=== PATIENT | female | born 1965 | race Caucasian/White ===

== ENCOUNTER → 2023-07-31 | Outpatient (CLI) | payer MEDICARE, MEDICAID, SELFPAY ==
--- NOTE | 2023-07-31 14:30 | NEURO ---
NCS and/or EMG Patient Report Ordering Doctor: Nemo Dawn DATE OF SERVICE: 07/31/23 Clinical Summary: This is a 58 year old female presenting with numbness in both hands (thumb and index finger). This EMG/NCS was performed to evaluate for bilateral carpal tunnel syndrome. Nerve Conduction Studies Summary: Nerve conduction studies were within normal ranges. Needle Examination Summary: Needle examination of select muscles of the bilateral upper extremities was normal. Impression: There is no electrodiagnostic evidence of a right/left carpal tunnel syndrome. Multi Select Codes Neurology Neurology Interp Codes: 68286-33 Musc test done w/n test comp (interp) (2) and 31650-10 Nrv cndj test 13/> studies (interp)
--- OUTSIDE RECORDS SUMMARY | 2023-07-31 21:51 | XMS RPT_ITS | CCD ---
Author Name Unknown Address [address] [facility] [address] [place] [address] Organization [facility] Care Team Providers Care Car Changer Name Role Phone Ruth Samaniego Unavailable Unavailable Ruth Samaniego Unavailable Unavailable Luan Pickett Unavailable Unavailable Vanessa Rojas Unavailable Unavailable Vanessa Rojas Unavailable Unavailable Luan Pickett Unavailable Unavailable Murali Caldwell Unavailable Unavailable Murali Caldwell Unavailable Unavailable Luan Pickett Unavailable Unavailable Luan Pickett Unavailable Dr. Murali Caldwell Attending Unavailable Piyush, Dr. Luan De La [facility] Primary [facility] Unavaila hamzah Pickett, Dr. Luan De La Fuente Attending Unavaila hamzah Pickett, Dr. Luan De La Fuente Primary [facility] Unavaila Lan Lewis DO Primary Care Provider [phone] LAN DAWN Attending Unavailable LAN DAWN Primary Care Unavailable WENDY RODRIGUEZ Attending Unavailable LAN DAWN Referring Unavailable LAN DAWN Primary Care Unavailable WENDY RODRIGUEZ Attending Unavailable LAN DAWN Primary Care Unavailable WENDY RODRIGUEZ Referring Unavailable LAN DAWN Primary Care Unavailable Allergies Allergy Classification Reported Allergen(s) Allergy Type Date of Onset Reaction(s) Facility (1 source) Bee/Wasp/Ant venom; Translations: [Bee Stings] Propensity to adverse reactions (disorder) AOF [facility] Repository (3 sources) Egg; Translations: [Eggs] Propensity to adverse reactions to drug (disorder) AOF, Rash [facility] Repository (3 sources) [place]; Translations: [Peaches] Propensity to adverse reactions to drug (disorder) AOF, Rash [facility] Repository (3 sources) Spiders; Translations: [Spiders] Propensity to adverse reactions (disorder) AOF [facility] Repository (1 source) No Known Allergies; Translations: [No Known Allergies] Propensity to adverse reactions to drug (disorder) [facility] Repository (2 sources) apis mellifera venom Allergy to substance (finding) [facility] Work Phone: (7 sources) egg extract; Translations: [EGG] Drug Allergy 6 [facility] Work Phone: (7 sources) Fruit; Translations: [FRUIT EXTRACTS] Propensity to adverse reactions 6 [facility] Work Phone: (7 sources) Bee Venom Protein (Honey Bee); Translations: [BEE VENOM PROTEIN (HONEY BEE)] Propensity to adverse reactions 6 [facility] Medications Current Medications Medication Drug Class(es) Dates Sig (Normalized) Sig (Original) [id number] 200 actuat albuterol 0.09 mg/actuat metered dose inhaler (7 sources) beta2-Adrenergic Agonist take 2 puff(s) by inhalation every six hours albuterol 90 mcg/actuation inhaler Inhale 2 puffs every 6 hours if needed. 0 Active Problems Active Problems Problem Classification Problem Date Documented Da te Episodic/Chronic Asthma (2 sources) Asthma; Translations: [Asthma, unspecified type, unspecified] Chronic Biliary tract disease (2 sources) Biliary calculus; Translations: [Calculus of gallbladder without mention of cholecystitis, without mention of obstruction] Episodic Cancer of cervix (2 sources) History of malignant neoplasm of cervix; Translations: [Personal history of malignant neoplasm of cervix uteri] Episodic Diabetes mellitus without complication (3 sources) Hyperglycemia; Translations: [Hyperglycemia, unspecified] Onset: 06-07-2023 06-07-2023 Episodic Diseases of mouth; excluding dental (2 sources) Mass of parotid gland; Translations: [Other specified diseases of the salivary glands] Episodic Past or Other Problems Problem Classification Problem Date Documented Da te Episodic/Chronic Unclassified (5 sources) Onset: 06-07-2023 06-07-2023 Results Test Name Value Interpretation Reference Range Facil ity Vital Signs Date Time Vital Sign Value Performing Clinician [facility]ad[facility] litkay 06-07-2023 11:15-0500 Body height 160 cm Lan Oberhauser DO Work Phone: [facility] 06-07-2023 11:15-0500 Body mass index (BMI) [Ratio] 40.76 kg/m2 Lan Oberhauser DO Work Phone: [facility] 06-07-2023 11:15-0500 Body weight 104.33 kg Lan Oberhauser DO Work Phone: [facility] 06-07-2023 11:15-0500 Diastolic blood pressure 86 mm[Hg] Lan Oberhauser DO Work Phone: [facility] 06-07-2023 11:15-0500 Heart rate 92 /min Lan Oberhauser DO Work Phone: [facility] 06-07-2023 11:15-0500 Systolic blood pressure 142 mm[Hg] Lan Oberhauser DO Work Phone: [facility] Encounters Encounter Date Encounter Type Care Provider Facility Start: 07-01-2023 End: 07-01-2023 ambulatory WENDYBERNARDA RODRIGUEZ [facility] Amb[facility] Start: 07-01-2023 End: 07-02-2023 ambulatory WENDY RODRIGUEZ [facility] Start: 07-01-2023 End: 07-01-2023 Office outpatient visit 25 minutes Wendy Rodriguez APRN-COAGULATION OPERATOR Work Phone: [facility] Procedures Date Procedure Procedure Detail Performing Clinician Start: 07-01-2023 Radex wrist complete minimum 3 views Wendy Rodriguez APRN-COAGULATION OPERATOR Work Phone: Start: 06-17-2023 AMB REFERRAL TO ORTH OPAEDIC SURGERY LAN DAWN Start: 06-10-2023 Lipid 1996 panel - S merry or Plasma Wendy Rodriguez ANIMAL ANATOMIST-COAGULATION OPERATOR Work Phone: Start: 01-17-2023 Mammography Lan zazueta DO Work Phone: Start: 12-23-2019 Colonoscopy Lan tomlinsonuser DO Work Phone: Start: 07-14-2019 Lipid 1996 panel - S merry or Plasma Lan Dawn DO Work Phone: Start: 06-03-2012 Excision of lumbar intervertebral disc Luan Pickett Work Phone: Plan of Treatment Date Care Activity Detail Author Start: 12-22-2029 Screening for malign ant neoplasm of colon [facility] Start: 06-10-2028 Lipid panel Lipid Panel [facility] Start: 06-10-2026 Diabetes mellitus screening Diabetes Screening [facility] Start: 07-14-2024 Lipid panel Lipid Panel [facility] Start: 01-18-2024 Screening for malign ant neoplasm of breast Mammogram [facility] Start: 09-16-2023 End: 09-16-2023 Patient encounter procedure 09/16/2023 9:40 AM EDT Office Visit [facility] [address] [address] Lan Dawn, DO [address] [facility] Physician [place], [place] [id number] [facility] Start: 07-01-2023 End: 07-01-2024 EMG & nerve conduction EMG & nerve conduction Neurology Routine Pain in both wrists Carpal tunnel syndrome of right wrist Median nerve dysfunction, left Expected: 07/01/2023 (Approximate), Expires: 07/01/2024 [facility] Service Area Work Phone: Payers Date Payer Category Payer Private Health Insurance [employer] DUAL COMPLETE [employer] DUAL COMPLETE [id number] 2023-Present [address] [address] [place] [address] [id number] 2023 Private Health Insurance [facility] [id number] 2017 Medicaid [id number] 2017 Medicaid MEDICAID MEDICAI D [id number] 2017-Present [address] [place] [address] [id number] 2017 Medicare 2009 Medicare [id number] 1966 Unknown [id number] 1966 Unknown [id number] 1966 Unknown [id number] 1966 Unknown [id number] 1966 Unknown [id number] 1966 Unknown [id number] Unknown Social History Date Type Detail Facility Start: 06-07-2023 End: 07-01-2023 Former smoker Former smoker [facility] Work Phone: Start: 06-07-2023 Tobacco smoking stat us NCIS Ex-smoker [facility] Work Phone: History of tobacco use Current smoker [facility] Work Phone: History of tobacco use Cigarette Smoker U [facility] Work Phone: Start: 06-07-2023 Tobacco use and exposure Smokeless tobacco non-user [facility] Work Phone: Start: 06-07-2023 End: 07-01-2023 Alcohol intake Ex-drinker (finding) [facility] Work Phone: Start: 06-07-2023 End: 07-01-2023 Tobacco use panel [facility] Work Phone: Start: 1965 Sex Assigned At Not on file U [facility] Work Phone: Start: 05-28-2023 End: 07-01-2023 Exposure to SARS-CoV-2 (event) Not sure [facility] Medical Equipment Procedure Code Equipment Code Equipment Origin al Text Equipment Identifier Dates Endo, Clip, 5mm, M/L Case [id number] Start: 04-25-2021 Clinical Notes 06-07-2023 to 07-01-2023 Assessment & Plan Note - LEN Colon - 07/01/2023 12:59 PM ESTAssessment & Plan Note - LEN Colon - 07/01/2023 12:59 PM EST Note Date & Type Note Facility 07-01-2023 Evaluation + Plan note Associated Problem(s): Carpal tunnel syndrome of right wrist Sx control withOTC NSAIDs per package directions, take with food, Tylenol prn. We discussed use of topical diclofenac gel up to 4 times daily to the wrist. Patient was fitted in a carpal tunnel brace with Nighttime bracing and prn for repetitive or aggravating activities. Home exercises and stretches for carpal tunnel provided at today's visit and to initiate 1-2 times daily and as needed. Patient to do these to both left and right. Requesting EMG of bilateral upper extremities. In the event that this does not get authorized, I will initiate formal OT for symptom control. In agreement with plan of care This note was generated using Visys software. It may contain errors in wording, punctuation or spelling. [facility] Work Phone: 07-01-2023 Miscellaneous Notes Associate d Problem(s): Carpal tunnel syndrome of right wrist Sx control withOTC NSAIDs per package directions, take with food, Tylenol prn. We discussed use of topical diclofenac gel up to 4 times daily to the wrist. Patient was fitted in a carpal tunnel brace with Nighttime bracing and prn for repetitive or aggravating activities. Home exercises and stretches for carpal tunnel provided at today's visit and to initiate 1-2 times daily and as needed. Patient to do these to both left and right. Requesting EMG of bilateral upper extremities. In the event that this does not get authorized, I will initiate formal OT for symptom control. In agreement with plan of care This note was generated using Visys software. It may contain errors in wording, punctuation or spelling. documented in this encounter [facility] Work Phone: 07-01-2023 History of Presen t illness Narrative Subjective Patient ID: Desiree Thornton is a 58 y.o. female. Chief Complaint: Pain of the Right Wrist (Patient states she has had bad pain in her wrist for 2 months.) Right Wrist Associated symptoms include arthralgias. Desiree is a pleasant 58-year-old female presenting as new patient visit for FUV of right wrist pain. Symptoms are progressively worse over the last 7 months. L wrist/hand sx are worsening over time but not as bad as right. Bracing x 2 weeks, going to nighttime wear tonight. Aggravated R elbow pain No new injuries Rotates Diclo gel and horse linament with no improvement Aggravated with anything she does with R hand, moving No improvement with Medrol dose pack, felt it caused her to be aden Patient is right-hand dominant. Review of Systems Constitutional: Negative. HENT: Negative. Respiratory: Negative. Cardiovascular: Negative. Endocrine: Negative. Musculoskeletal: Positive for arthralgias. Skin: Negative. Neurological: Negative. Hematological: Negative. Psychiatric/Behavioral: Negative. Objective Right Hand Exam Tenderness The patient is experiencing tenderness in the dorsal area (Proximal carpal row/medial radial and ulnar region). Range of Motion Wrist Extension: 40 Flexion: 70 Pronation: normal Supination: normal Tests Phalen s sign: positive Tinel's sign (median nerve): positive Delano's test: negative Other Sensation: normal Pulse: present Comments: Full ROM with radial and ulnar deviation, no sx aggravation Mildly positive Phalen's with increased paraesthesia through palm and thumb, index, middle and partial ring fingers. Full ROM of distal joints with no sx aggravation, distal motor and sensory intact, cap refill at 2 seconds. Left Hand Exam Tenderness Left hand tenderness location: volar region, carpal tunnel. Range of Motion Wrist Extension: 50 Flexion: 70 Tests Tinel's sign (median nerve): positive Other Erythema: absent Sensation: normal Pulse: present Comments: Full ROM of distal joints with no sx aggravation, distal motor and sensory intact, cap refill at 2 seconds. Image Results: Independent review of wrist x-rays completed on today's visit. There is no obvious fracture or misalignment noted. There is mild to moderate CMC thumb degenerative changes noted. Await radiology report. Assessment/Plan Encounter Diagnoses: Problem List Items Addressed This Visit ICD-10-CM Carpal tunnel syndrome of right wrist - Primary G56.01 Sx control withOTC NSAIDs per package directions, take with food, Tylenol prn. We discussed use of topical diclofenac gel up to 4 times daily to the wrist. Patient was fitted in a carpal tunnel brace with Nighttime bracing and prn for repetitive or aggravating activities. Home exercises and stretches for carpal tunnel provided at today's visit and to initiate 1-2 times daily and as needed. Patient to do these to both left and right. Requesting EMG of bilateral upper extremities. In the event that this does not get authorized, I will initiate formal OT for symptom control. In agreement with plan of care This note was generated using Visys software. It may contain errors in wording, punctuation or spelling. Relevant Orders EMG & nerve conduction Follow Up In Orthopaedic Surgery Pain in both wrists M25.531, M25.532 Relevant Orders EMG & nerve conduction Follow Up In Orthopaedic Surgery Median nerve dysfunction, left G56.12 Relevant Orders EMG & nerve conduction Follow Up In Orthopaedic Surgery documented in this encounter [facility] Work Phone: 06-17-2023 Evaluation + Plan note Associated Problem(s): Carpal tunnel syndrome of right wrist Sx control with rx Medrol Dosepak to take as directed, take with food, Tylenol prn. We discussed use of topical diclofenac gel up to 4 times daily to the wrist. Patient was fitted in a carpal tunnel brace with good fit and support per staff at today's visit. I did encourage the patient to wear throughout the daytime and repetitive activities x 1 week then may decrease to Nighttime bracing and prn for repetitive or aggravating activities. Follow up here 2-3 weeks, sooner for changes or concerns. In agreement with plan of care This note was generated using Visys software. It may contain errors in wording, punctuation or spelling. [facility] Work Phone: 06-17-2023 Miscellaneous Notes Associate d Problem(s): Carpal tunnel syndrome of right wrist Sx control with rx Medrol Dosepak to take as directed, take with food, Tylenol prn. We discussed use of topical diclofenac gel up to 4 times daily to the wrist. Patient was fitted in a carpal tunnel brace with good fit and support per staff at today's visit. I did encourage the patient to wear throughout the daytime and repetitive activities x 1 week then may decrease to Nighttime bracing and prn for repetitive or aggravating activities. Follow up here 2-3 weeks, sooner for changes or concerns. In agreement with plan of care This note was generated using Visys software. It may contain errors in wording, punctuation or spelling. documented in this encounter [facility] Work Phone: 06-17-2023 History of Presen t illness Narrative Subjective Patient ID: Desiree Thornton is a 58 y.o. female. Chief Complaint: Pain of the Right Wrist (Patient states she has had pain in both her wrist with with right being worse, for the past 7 months.) Right Wrist Associated symptoms include arthralgias. Pain Desiree is a pleasant 58-year-old female presenting as new patient visit for evaluation of right wrist pain. Symptoms are progressively worse over the last 7 months. No injury recently nor in the past. Patient is right-hand dominant. Patient is also starting to notice some symptoms to the left wrist and believes it is overcompensation. Diff holding coffe cup No oral OTC meds attempted, horse linament topical several times daily Denies repetitive activity With a second hand wrist wrap with no improvements, denies any rigid supports. Review of Systems Constitutional: Negative. HENT: Negative. Respiratory: Negative. Cardiovascular: Negative. Endocrine: Negative. Musculoskeletal: Positive for arthralgias. Skin: Negative. Neurological: Negative. Hematological: Negative. Psychiatric/Behavioral: Negative. Objective Right Hand Exam Tenderness The patient is experiencing tenderness in the dorsal area (Proximal carpal row/medial radial and ulnar region). Range of Motion Wrist Extension: 40 Flexion: 40 Pronation: normal Supination: normal Tests Phalen s sign: positive Tinel's sign (median nerve): negative Delano's test: negative Other Erythema: present Sensation: normal Pulse: present Comments: Full radial and ulnar deviation, no sx aggravation Mildly positive Phalen's with increased paraesthesia through palm and thumb, index, middle and partial ring fingers. Full ROM of distal joints with no sx aggravation, distal motor and sensory intact, cap refill at 2 seconds. Image Results: Unable to complete due to radiology delays prior to visit. Pt to obtain on outpt basis today and will be notified of results. Assessment/Plan Encounter Diagnoses: Right wrist pain Carpal tunnel syndrome of right wrist Orders Placed This Encounter XR wrist right 3+ views Problem List Items Addressed This Visit ICD-10-CM Carpal tunnel syndrome of right wrist G56.01 Sx control with rx Medrol Dosepak to take as directed, take with food, Tylenol prn. We discussed use of topical diclofenac gel up to 4 times daily to the wrist. Patient was fitted in a carpal tunnel brace with good fit and support per staff at today's visit. I did encourage the patient to wear throughout the daytime and repetitive activities x 1 week then may decrease to Nighttime bracing and prn for repetitive or aggravating activities. Follow up here 2-3 weeks, sooner for changes or concerns. In agreement with plan of care This note was generated using Visys software. It may contain errors in wording, punctuation or spelling. Relevant Medications methylPREDNISolone (Medrol Dospak) 4 mg tablets diclofenac sodium (Voltaren) 1 % gel gel Other Relevant Orders Follow Up In Orthopaedic Surgery Right wrist pain M25.531 Relevant Medications methylPREDNISolone (Medrol Dospak) 4 mg tablets diclofenac sodium (Voltaren) 1 % gel gel Other Relevant Orders XR wrist right 3+ views documented in this encounter [facility] Work Phone: 06-07-2023 History of Presen t illness Narrative Subjective Patient ID: Desiree Thornton is a 58 y.o. 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 Wrist Pain Associated symptoms include numbness. Pertinent negatives include no fever. DepressionPatient is not experiencing: nervousness/anxiety and shortness of breath. Patient is a 58 y.o. female patient who is here today to establish care. Pt reports that she has been having numbness in her right thumb and index finger, pain in wrist. Worse when stirring things. Pain radiating back into arm. No injury. She is wearing a wrist brace. Patient denies neck pain. Pain increases with worsening activity. Pt has a pmhx of htn, remote hx of seizures as a child, allergy to bees, asthma, chronic back pain s/p back surgery, sees Pain management, uterine cancer s/p hysterectomy. She has had worsening depression, started on amitriptyline by Dr Gauthier for rls. Review of Systems Constitutional: Negative for activity change, appetite change, fatigue, fever and unexpected weight change. HENT: Negative for congestion, ear discharge, ear pain, nosebleeds, postnasal drip, rhinorrhea, sinus pressure, sneezing, sore throat, tinnitus and trouble swallowing. Eyes: Negative for discharge. Respiratory: Negative for cough and shortness of breath. Cardiovascular: Negative for chest pain. Gastrointestinal: Negative for abdominal distention, abdominal pain, blood in stool, constipation, diarrhea, nausea and vomiting. Endocrine: Negative for cold intolerance. Genitourinary: Negative for dysuria and frequency. Musculoskeletal: Positive for arthralgias. Negative for back pain and neck pain. Skin: Negative for rash. Neurological: Positive for numbness. Negative for dizziness, weakness and headaches. Psychiatric/Behavioral: Positive for depression. Negative for hallucinations. The patient is not nervous/anxious. Objective BP 142/86 Pulse 92 Ht 1.6 m (5' 2.99 ) Wt 104 kg (230 lb) BMI 40.76 kg/m Physical Exam Constitutional: General: She is not in acute distress. Appearance: Normal appearance. HENT: Head: Normocephalic. Nose: Nose normal. Mouth/Throat: Pharynx: No oropharyngeal exudate. Eyes: General: Right eye: No discharge. Left eye: No discharge. Extraocular Movements: Extraocular movements intact. Pupils: Pupils are equal, round, and reactive to light. Cardiovascular: Rate and Rhythm: Normal rate and regular rhythm. Heart sounds: No murmur heard. No gallop. Pulmonary: Effort: Pulmonary effort is normal. No respiratory distress. Breath sounds: Normal breath sounds. No wheezing. Abdominal: General: Bowel sounds are normal. There is no distension. Palpations: Abdomen is soft. Tenderness: There is no abdominal tenderness. Musculoskeletal: General: Tenderness present. No swelling. Normal range of motion. Skin: General: Skin is warm and dry. Coloration: Skin is not jaundiced. Neurological: General: No focal deficit present. Mental Status: She is alert and oriented to person, place, and time. Cranial Nerves: No cranial nerve deficit. Psychiatric: Mood and Affect: Mood normal. Behavior: Behavior normal. Flu shot declines COVID received PNA -- Shingles received RSV - Mammo 01/23 Pap 2017? 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 Suspect carpel tunnel - referral to Ortho 3. Asthma, controlled - continue flovent and albuterol 4. RLS - was started on Amitriptyline does not think that has helped Will try requip - check labs 5. Depression - continue wellbutrin 300mg po daily 6. 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 [E55.9] Vitamin D deficiency [R25.2] Leg cramp [F32.9] Reactive depression documented in this encounter [facility] Work Phone: documented in this encounter [facility] Work Phone: Evaluation note* Diagnosis Right wrist pain Pain in joint, forearm Carpal tunnel syndrome of right wrist documented in this encounter [facility] Work Phone: Evaluation note* Diagnosis Carpal tunnel syndrome of right wrist- Primary Pain in both wrists Median nerve dysfunction, left documented in this encounter [facility] Work Phone: Reason for referral (narrative)* Consultation (Routine) - Authorized Specialty Diagnoses / Procedures Referred By Sahara tang Referred To Contact Primary Care Procedures Follow Up In Primary Care - Established Lan Dawn DO [address] [facility] [place] [address] Referral ID Status Reason Start Date Expiration Date V isits Requested Visits Authorized [id number] Authorized 06/07/2023 06/06/2024 1 1 * Consultation (Routine) - Authorized Specialty Diagnoses / Procedures Referred By Contac t Referred To Contact Orthopaedic Surgery / Orthopedic Surgery Diagnoses Carpal tunnel syndrome of right wrist Lan Dawn DO [address] [facility] [address] Referral ID Status Reason Start Date Expiration Date Visits Requested Visits Authorized [id number] Authorized Specialty Services Required 06/07/2023 06/06/2024 1 1 [facility] Work Phone: Rejrxq for referral (narrative)* Consultation (Routine) - Authorized Specialty Diagnoses / Procedures Referred By Contac t Referred To Contact Orthopaedic Surgery / Orthopedic Surgery Diagnoses Carpal tunnel syndrome of right wrist Procedures Follow Up In Orthopaedic Surgery Wendy Rodriguez APRN-COAGULATION OPERATOR [address] [facility], [place] [phone] Referral ID Status Reason Start Date Expiration Date V isits Requested Visits Authorized [id number] Authorized 06/17/2023 06/16/2024 1 1 * Imaging (Routine) - Authorized Specialty Diagnoses / Procedures Referred By Contac t Referred To Contact Radiology Diagnoses Right wrist pain Procedures XR wrist right 3+ views Wnedy Rodriguez APRN-COAGULATION OPERATOR [address] [facility], [address] [address] Referral ID Status Reason Start Date Expiration Date Visits Requested Visits Authorized [id number] Authorized Perform Procedure 06/14/2023 06/13/2024 1 1 [facility] Work Phone: Reason for referral (narrative)* Consultation (Routine) - Authorized Specialty Diagnoses / Procedures Referred By Sahara t Referred To Contact Orthopaedic Surgery / Orthopedic Surgery Diagnoses Pain in both wrists Carpal tunnel syndrome of right wrist Median nerve dysfunction, left Procedures Follow Up In Orthopaedic Surgery Wendy Rodriguez APRN-JANEY [address] [facility], [facility] [address] [place] [phone] Tom Coleman MD [address] [place] [phone] Referral ID Status Reason Start Date Expiration Date V isits Requested Visits Authorized [id number] Authorized 07/01/2023 06/30/2024 1 1 * Neurology (Routine) - Pending Review Specialty Diagnoses / Procedures Referred By Sahara tang Referred To Contact Diagnoses Pain in both wrists Carpal tunnel syndrome of right wrist Median nerve dysfunction, left Procedures EMG & nerve conduction Wendy Rodriguez ANIMAL ANATOMIST-COAGULATION OPERATOR [address] [facility], [facility] [address] [place] [phone] Referral ID Status Reason Start Date Expiration Date V isits Requested Visits Authorized [id number] Pending Review 07/01/2023 06/30/2024 1 1 [facility] Work Phone: Summary Purpose Family History No Family History Records FoundUnknown Family Member Name Dates Details Family history of hepatic ci rrhosis: Mother(V18.59, Z83.79) Status:Active Family history of diabetes m ellitus: Father(V18.0, Z83.3) Status:Active Unknown Family Member Name Dates Details Family history of hepatic ci rrhosis: Mother(V18.59, Z83.79) Status:Active Family history of diabetes m ellitus: Father(V18.0, Z83.3) Status:Active Advance Directives No Advanced Directives Records FoundNo Advanced Directives Records FoundNo Advanced Directives Records FoundNo Advanced Directives Records FoundNo Advanced Directives Records FoundNo Advanced Directives Records Found Additional Source Comments INFORMATION SOURCE (unrecogn ized section and content) DATE CREATED AUTHOR AUTHOR'S ORGANIZ ATION 05/12/2021 [employer] DATE CREATED AUTHOR AUTHOR'S ORGANIZ ATION 05/12/2021 [facility] DATE CREATED AUTHOR AUTHOR'S ORGANIZ ATION 01/19/2023 Merged with [facility] DATE CREATED AUTHOR AUTHOR'S ORGANIZ ATION 07/02/2023 [facility] DATE CREATED AUTHOR AUTHOR'S ORGANIZ ATION 07/07/2023 [facility] Reason for Visit (unrecogniz ed section and content) Reason Comments Pain Patient states she h as had pain in both her wrist with with right being worse, for the past 7 months. Specialty Diagnoses / Procedures Referred By Sahara tang Referred To Contact Orthopaedic Surgery / Orthopedic Surgery Diagnoses Carpal tunnel syndrome of right wrist Lan Dawn DO [address] [facility] [address] Referral ID Status Reason Start Date Expiration Date Visits Requested Visits Authorized [id number] Authorized Specialty Services Required 06/07/2023 06/06/2024 1 1 Reason Comments Pain Patient states she h as had bad pain in her wrist for 2 months. Specialty Diagnoses / Procedures Referred By Sahara tang Referred To Contact Radiology Diagnoses Right wrist pain Procedures XR wrist right 3+ views Wendy Rodriguez, ANIMAL ANATOMIST-COAGULATION OPERATOR [address] [facility], [facility] [address] [place] [address] Referral ID Status Reason Start Date Expiration Date Visits Requested Visits Authorized [id number] Authorized Perform Procedure 06/14/2023 06/13/2024 1 1 Care Teams (unrecognized sec tion and content) Car Changer Relationship Specialty Start Date End Date Lan Dawn DO [address] [facility] [address] PCP - General Internal Medicine 06/07/23 Car Changer Relationship Specialty Start Date End Date Guillermogloriatomasgloria Lan Oconnor, DO [address] [facility] [place] [address] PCP - General Internal Medicine 06/07/23 Car Changer Relationship Specialty Start Date End Date Eleazar Dawnyanni Oconnor, DO [address] [facility] [address] PCP - General Internal Medicine 06/07/23 Car Changer Relationship Specialty Start Date End Date López Lan Oconnor, DO [address] [facility] [address] PCP - General Internal Medicine 06/07/23 FOR RECORDS PERTAINING TO PATIENTS WHO ARE OR HAVE BEEN ENROLLED IN A CHEMICAL DEPENDENCY/SUBSTANCEABUSE PROGRAM, SOME INFORMATION MAY BE OMITTED. This clinical summary was aggregated from multiple sources. Caution should be exercised in using it in the provision of clinical care. This summary normalizes information from multiple sources, and as a consequence, information in this document may materially change the coding, format and clinical context of patient data. In addition, data may be omitted in some cases. CLINICAL DECISIONS SHOULD BE BASED ON THE PRIMARY CLINICAL RECORDS. [facility]. provides no warranty or guarantee of the accuracy or completeness of information in this document.
== END | disposition home or self-care (01) ==
LOC: PSN 12:06
PROVIDERS: PCP Internal Medicine
DX: G56.03 Carpal tunnel syndrome, bilateral upper limbs (principal)
CPT/HCPCS: 95886; 95913

== ENCOUNTER → 2024-10-21 | Outpatient (CLI) | payer MEDICARE, MEDICAID, SELFPAY ==
--- NOTE | 2024-10-21 12:48 | RAD_ITS ---
EXAM: XR Abdomen, 1 View CLINICAL INDICATION: KUB- KIDNEY STONE TECHNIQUE: Frontal supine view of the abdomen/pelvis. COMPARISON: No relevant prior studies available. FINDINGS: GASTROINTESTINAL TRACT: Fecal retention in the colon consistent with constipation. No dilation. ORGANS: Possible 4 mm calculus over the upper pole of the left kidney. Cholecystectomy clips. BONES/JOINTS: Unremarkable. No acute fracture. RAD/Abdomen Single View IMPRESSION: 1. Possible 4 mm calculus over the upper pole of the left kidney. 2. Fecal retention in the colon consistent with constipation. Reading [facility]
== END | disposition home or self-care (01) ==
LOC: MTRAD 12:45
PROVIDERS: PCP Nurse Practitioner Family; Referring Provider Urology; Visit Provider Urology
DX: N20.0 Calculus of kidney (principal)
CPT/HCPCS: 74018

== ENCOUNTER 2025-01-07 17:09 | Inpatient (IN) | payer MEDICARE, MEDICAID, SELFPAY ==
[2025-01-01 11:21] LABS: Hematocrit 43.4 % (37-47); Hemoglobin 13.8 g/dL (12.0-15.0); Mean Corp Hgb Conc 31.8 g/dL (32-36); Mean Corpuscular Volume 93.9 fL (81-99); Mean Platelet Vol. 10.0 fl (6.2-12.0); Platelet Count 260 K/mm3 (150-450); RBC Distribution Width CV 13.6 % (11.6-14.6); RBC Distribution Width SD 46.6 fl (35.1-43.9); Red Blood Count 4.62 M/mm3 (4.2-5.4); White Blood Count 10.4 K/mm3 (4.4-11.0)
[2025-01-01 11:59] LABS: Anion Gap 11 (5-15); BUN 18 mg/dL (4-19); BUN/Creat Ratio 25.8 RATIO (10-20); Calcium,Total 9.9 mg/dL (7.6-11.0); Carbon Dioxide 25.3 mmol/L (21.0-32.0); Chloride 103 mmol/L (98-108); Glucose 104 mg/dL (70-99); Potassium 5.2 mmol/L (3.3-5.1)
--- NOTE | 2025-01-04 11:49 | PAT.ANESEVAL ---
Pre-Assessment Diagnosis/Proposed Procedure Planned Operative Procedure(s): LEFT RENAL ESWL Anesthesia History Anesthesia History - plastics patternmaker: Anesthesia History - plastics patternmaker Hx Hospitalization No 12/24/24 08:22 Any Problems With Anesthesia No 12/24/24 08:22 Cholinesterase deficiency No 12/24/24 08:22 You/Your Family Experience No 12/24/24 08:22 fever (hyperthermia) with Relationship Recent Exposure to Contagious Disease Does patient have nerve No 12/24/24 08:22 stimulator Patient instructed to have device shut off --Does patient have Pacemaker or ICD? When Was Last Pacemaker Check QUESTION #4 FULL TEXT: You/Your Family Experience fever (hyperthermia) with Anesthesia Last Oral Intake Last Oral intake: Last Oral Intake NPO since Meds taken in AM with sips of water? Meds patient instructed to take am of surgery PONV PONV - plastics patternmaker: PONV - plastics patternmaker Female Yes 12/24/24 08:22 HX of Motion Sickness No 12/24/24 08:22 HX of N/V After Surgery No 12/24/24 08:22 Non-Smoker Yes 12/24/24 08:22 Duration of Surgery greater Yes 12/24/24 08:22 than 60 minutes Number of Risk Factors 3 12/24/24 08:22 PONV Score Moderate Risk 12/24/24 08:22 Respiratory Assessment Respiratory Assessment - plastics patternmaker: Respiratory Tract Infection Hx - plastics patternmaker Hx Respiratory Tract Infection No 12/24/24 08:22 STOP Sleep Apnea STOP Sleep Apnea - plastics patternmaker: STOP Sleep Apnea - plastics patternmaker Hx Hypertension No 12/24/24 08:22 Hx Sleep Apnea No 12/24/24 08:22 CPAP BIPAP Do you snore loudly (louder Yes 12/24/24 08:22 than talking or can be heard Do you often feel tired/ No 12/24/24 08:22 fatigued/ sleepy during daytime? Has anyone observed you stop Yes 12/24/24 08:22 breathing during sleep? STOP Results Positive 12/24/24 08:22 QUESTION #5 FULL TEXT : Do you snore loudly (louder than talking or can be heard through closed doors)? 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 Specify any problems Hx of Preganancy in last 3 No 12/24/24 08:22 Months Nurse Filling Out Transfusion [email or web address] 12/24/24 08:22 & Questions: Date: 12/24/24 12/24/24 08:22 Time: 08:27 12/24/24 08:22 Patient unable to answer at this time (ie. confused, unrespo /Reproduction History /Reproductive History - plastics patternmaker: /Reproductive Hx- plastics patternmaker Hx Now Gestational Age (in weeks): EDC: Hx Hx Para Hx Section SAB PFSH Medical History Miscarriage UTI (urinary tract infection) Bowel disease Toe fracture Migraines Gestational diabetes Anemia Shoulder blade pain Vitamin D deficiency Stress incontinence Uterine cancer OCD (obsessive compulsive disorder) Wears partial dentures Cancer Schizophrenia Bipolar disorder Depression Anxiety Kidney stones Back pain Restless legs Arthritis Alcohol use History of ulceration Shortness of breath on exertion Former smoker Asthma Leg cramps Home Medications ?Medication ?Instructions ?Recorded ?Last Taken ?Type albuterol sulfate 90 mcg/actuation 2 puff inhalation Q4H PRN 12/24/24 Unknown History aerosol inhaler shortness of breath or wheezing budesonide-formoterol HFA 80 2 puff inhalation BID 12/24/24 Unknown History mcg-4.5 mcg/actuation aerosol inhaler (Symbicort) buprenorphine 5 mcg/hour weekly 1 patch topical QWEEK 12/24/24 Unknown History transdermal patch cholecalciferol (vitamin D3) 1,250 1,250 mcg PO QWEEK 12/24/24 Unknown History mcg (50,000 unit) capsule epinephrine 0.3 mg/0.3 mL 0.3 ml IM X1 PRN anaphylaxis 12/24/24 Unknown History injection, auto-injector furosemide 20 mg tablet 20 mg PO DAILY 12/24/24 Unknown History pramipexole 0.125 mg tablet 0.125 mg PO QHS 12/24/24 Unknown History doxycycline hyclate 100 mg tablet 100 mg PO BID #14 tabs 01/04/25 Unknown Rx Allergy/AdvReac Type Severity Reaction Status Date / Time bee venom protein (honey bee) Allergy Anaphylaxis Verified 12/24/24 08:17 egg (eggs) Allergy Hives Verified 12/24/24 08:17 Food Allergies: Uncoded Allergy Hives Verified 12/24/24 08:17 peach Allergy hives Verified 01/01/25 13:35 spider venom Allergy Anaphylaxis Verified 01/01/25 13:35 Family History Sister Skin cancer Blood clot associated with vein wall inflammation Miscarriage Diabetes Mother Miscarriage Osteoporosis Father Diabetes Grandmother Osteoporosis Surgical History History of throat surgery S/P gastric sleeve procedure Hx laparoscopic cholecystectomy H/O removal of cyst H/O rotator cuff surgery H/O gastric sleeve H/O bilateral breast reduction surgery Tubal ligation status H/O: hysterectomy History of back surgery History of cardiac catheterization Social History Smoking Status: Former smoker alcohol intake: never substance use type: does not use what type of physical activity do you participate in: none do you feel safe at home: Yes Audit: Pertinent Findings Pertinent Findings Additional pertinent findings: Potassium is 5.2. Should be okay to proceed with anesthesia. Recommendation Anesthesia Recommendation Anesthesia recommendation: OPTIMIZED for anesthesia
--- NOTE | 2025-01-04 11:49 | PAT.ANESEVAL ---
Pre-Assessment Diagnosis/Proposed Procedure Planned Operative Procedure(s): LEFT RENAL ESWL Anesthesia History Anesthesia History - emergency department: Anesthesia History - emergency department Hx Hospitalization No 12/24/24 08:22 Any Problems With Anesthesia No 12/24/24 08:22 Cholinesterase deficiency No 12/24/24 08:22 You/Your Family Experience No 12/24/24 08:22 fever (hyperthermia) with Relationship Recent Exposure to Contagious Disease Does patient have nerve No 12/24/24 08:22 stimulator Patient instructed to have device shut off --Does patient have Pacemaker or ICD? When Was Last Pacemaker Check QUESTION #4 FULL TEXT: You/Your Family Experience fever (hyperthermia) with Anesthesia Last Oral Intake Last Oral intake: Last Oral Intake NPO since Meds taken in AM with sips of water? Meds patient instructed to take am of surgery PONV PONV - emergency department: PONV - emergency department Female Yes 12/24/24 08:22 HX of Motion Sickness No 12/24/24 08:22 HX of N/V After Surgery No 12/24/24 08:22 Non-Smoker Yes 12/24/24 08:22 Duration of Surgery greater Yes 12/24/24 08:22 than 60 minutes Number of Risk Factors 3 12/24/24 08:22 PONV Score Moderate Risk 12/24/24 08:22 Respiratory Assessment Respiratory Assessment - emergency department: Respiratory Tract Infection Hx - emergency department Hx Respiratory Tract Infection No 12/24/24 08:22 STOP Sleep Apnea STOP Sleep Apnea - emergency department: STOP Sleep Apnea - emergency department Hx Hypertension No 12/24/24 08:22 Hx Sleep Apnea No 12/24/24 08:22 CPAP BIPAP Do you snore loudly (louder Yes 12/24/24 08:22 than talking or can be heard Do you often feel tired/ No 12/24/24 08:22 fatigued/ sleepy during daytime? Has anyone observed you stop Yes 12/24/24 08:22 breathing during sleep? STOP Results Positive 12/24/24 08:22 QUESTION #5 FULL TEXT : Do you snore loudly (louder than talking or can be heard through closed doors)? Tobacco Use History Tobacco Use History - emergency department: Tobacco Use History - emergency department Tobacco Use Smoking Status Former smoker 12/24/24 08:22 Hx Tobacco Use No 12/24/24 08:22 Years Smoking Packs Smoked per Day Smoking Cessation Date was Yes - quit smoking within 15 12/24/24 08:22 within the last 15 years years Hx Smoking Cessation Date Hx Smoking Cessation Counseling Hematologic Medial History Hematologic Hx - emergency department: Hematologic Medical Hx - mangle tender Hx of Blood Transfusion No 12/24/24 08:22 Hx of Transfusion in last 3 No 12/24/24 08:22 Months Date of Last Transfusion (if within last 3 months) Ever experience any problems No 12/24/24 08:22 with transfusion(s)? Specify any problems Hx of Preganancy in last 3 No 12/24/24 08:22 Months Nurse Filling Out Transfusion [email or web address] 12/24/24 08:22 & Questions: Date: 12/24/24 12/24/24 08:22 Time: 08:27 12/24/24 08:22 Patient unable to answer at this time (ie. confused, unrespo /Reproduction History /Reproductive History - emergency department: /Reproductive Hx- emergency department Hx Now Gestational Age (in weeks): EDC: Hx Hx Para Hx Section SAB PFSH Medical History Miscarriage UTI (urinary tract infection) Bowel disease Toe fracture Migraines Gestational diabetes Anemia Shoulder blade pain Vitamin D deficiency Stress incontinence Uterine cancer OCD (obsessive compulsive disorder) Wears partial dentures Cancer Schizophrenia Bipolar disorder Depression Anxiety Kidney stones Back pain Restless legs Arthritis Alcohol use History of ulceration Shortness of breath on exertion Former smoker Asthma Leg cramps Home Medications ?Medication ?Instructions ?Recorded ?Last Taken ?Type albuterol sulfate 90 mcg/actuation 2 puff inhalation Q4H PRN 12/24/24 Unknown History aerosol inhaler shortness of breath or wheezing budesonide-formoterol HFA 80 2 puff inhalation BID 12/24/24 Unknown History mcg-4.5 mcg/actuation aerosol inhaler (Symbicort) buprenorphine 5 mcg/hour weekly 1 patch topical QWEEK 12/24/24 Unknown History transdermal patch cholecalciferol (vitamin D3) 1,250 1,250 mcg PO QWEEK 12/24/24 Unknown History mcg (50,000 unit) capsule epinephrine 0.3 mg/0.3 mL 0.3 ml IM X1 PRN anaphylaxis 12/24/24 Unknown History injection, auto-injector furosemide 20 mg tablet 20 mg PO DAILY 12/24/24 Unknown History pramipexole 0.125 mg tablet 0.125 mg PO QHS 12/24/24 Unknown History doxycycline hyclate 100 mg tablet 100 mg PO BID #14 tabs 01/04/25 Unknown Rx Allergy/AdvReac Type Severity Reaction Status Date / Time bee venom protein (honey bee) Allergy Anaphylaxis Verified 12/24/24 08:17 egg (eggs) Allergy Hives Verified 12/24/24 08:17 Food Allergies: Uncoded Allergy Hives Verified 12/24/24 08:17 peach Allergy hives Verified 01/01/25 13:35 spider venom Allergy Anaphylaxis Verified 01/01/25 13:35 Family History Sister Skin cancer Blood clot associated with vein wall inflammation Miscarriage Diabetes Mother Miscarriage Osteoporosis Father Diabetes Grandmother Osteoporosis Surgical History History of throat surgery S/P gastric sleeve procedure Hx laparoscopic cholecystectomy H/O removal of cyst H/O rotator cuff surgery H/O gastric sleeve H/O bilateral breast reduction surgery Tubal ligation status H/O: hysterectomy History of back surgery History of cardiac catheterization Social History Smoking Status: Former smoker alcohol intake: never substance use type: does not use what type of physical activity do you participate in: none do you feel safe at home: Yes Audit: Pertinent Findings Pertinent Findings Additional pertinent findings: Potassium is 5.2. Should be okay to proceed with anesthesia. Recommendation Anesthesia Recommendation Anesthesia recommendation: OPTIMIZED for anesthesia
[2025-01-07] VITALS (18 sets, daily range): BP systolic 111–156; BP diastolic 70–99; PULSE 53–91; RESP 16–20; TEMP 36.1–36.9; O2SAT 90–100; BMI 32.6
[2025-01-07] MEDS: Lactated Ringers 1,000 ML 15 ML IV (09:50)
--- OUTSIDE RECORDS SUMMARY | 2025-01-07 09:51 | XMS RPT_ITS | CCD ---
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 effusion is seen. MEDIASTINUM AND BARBIE, LOWER NECK AND AXILLA: The visualized thyroid gland is within normal limits. Small hilar and mediastinal lymph nodes which are not pathologically enlarged by size criteria, several of which are calcified. No axillary lymphadenopathy. Esophagus appears within normal limits as seen. LUNGS AND AIRWAYS: The trachea and central airways are patent. No endobronchial lesion. There are calcified granulomas. No consolidation. No effusion. No pneumothorax. Minimal areas of atelectasis, predominantly at the lung bases. 3 mm nodule in the left lower lobe, image 68, of doubtful clinical significance and likely an additional granuloma but no calcifications are noted nodule. UPPER ABDOMEN: The visualized subdiaphragmatic structures demonstrate no acute abnormality. 7 mm nonobstructing calculus noted within the visible portions of the upper pole of the left kidney. CHEST WALL AND OSSEOUS STRUCTURES: Degenerate changes. No acute process. IMPRESSION: No evidence of a pulmonary embolism. MACRO: None. Signed by: Dar Lisa 09/14/2024 1:24 PM Dictation workstation: [id number] [facility] CT Chest W contrast IV and C T angiogram Pulmonary arteries for pulmonary embolus W contrast Adriel 09-14-2024 No evidence of a pul monary embolism. MACRO: None. Signed by: Dar Lisa 09/14/2024 1:24 PM Dictation workstation: [id number] MMODAL Interpreted By: Dar Eckert, STUDY: CT ANGIO CHEST FOR PULMONARY EMBOLISM; 09/14/2024 1:17 pm INDICATION: Signs/Symptoms:left rib pain, pleuritic pain. COMPARISON: None. ACCESSION NUMBER(S): [id number] ORDERING CLINICIAN: ANGELA BALTAZAR TECHNIQUE: Helical data acquisition of the chest was obtained following the intravenous administration of 70 ml of contrast/Omnipaque 350. Images were reformatted in axial, coronal, and sagittal planes. 3D post processing was performed on an independent workstation and volume rendered images of the pulmonary arteries were created and utilized in the interpretation. FINDINGS: POTENTIAL LIMITATIONS OF THE STUDY: Respiratory motion artifact. HEART AND VESSELS: No filling defects are identified within the pulmonary arteries to indicate the presence of a pulmonary embolism. There is atherosclerotic disease. Aorta is normal in caliber. Heart is at the upper limits of normal in size. No pericardial effusion is seen. MEDIASTINUM AND BARBIE, LOWER NECK AND AXILLA: The visualized thyroid gland is within normal limits. Small hilar and mediastinal lymph nodes which are not pathologically enlarged by size criteria, several of which are calcified. No axillary lymphadenopathy. Esophagus appears within normal limits as seen. LUNGS AND AIRWAYS: The trachea and central airways are patent. No endobronchial lesion. There are calcified granulomas. No consolidation. No effusion. No pneumothorax. Minimal areas of atelectasis, predominantly at the lung bases. 3 mm nodule in the left lower lobe, image 68, of doubtful clinical significance and likely an additional granuloma but no calcifications are noted nodule. UPPER ABDOMEN: The visualized subdiaphragmatic structures demonstrate no acute abnormality. 7 mm nonobstructing calculus noted within the visible portions of the upper pole of the left kidney. CHEST WALL AND OSSEOUS STRUCTURES: Degenerate changes. No acute process. MMODAL Dar Lisa MD - 09/14/2024 Interpreted By: Dar Lisa, STUDY: CT ANGIO CHEST FOR PULMONARY EMBOLISM; 09/14/2024 1:17 pm INDICATION: Signs/Symptoms:left rib pain, pleuritic pain. COMPARISON: None. ACCESSION NUMBER(S): [id number] ORDERING CLINICIAN: ANGELA BALTAZAR TECHNIQUE: Helical data acquisition of the chest was obtained following the intravenous administration of 70 ml of contrast/Omnipaque 350. Images were reformatted in axial, coronal, and sagittal planes. 3D post processing was performed on an independent workstation and volume rendered images of the pulmonary arteries were created and utilized in the interpretation. FINDINGS: POTENTIAL LIMITATIONS OF THE STUDY: Respiratory motion artifact. HEART AND VESSELS: No filling defects are identified within the pulmonary arteries to indicate the presence of a pulmonary embolism. There is atherosclerotic disease. Aorta is normal in caliber. Heart is at the upper limits of normal in size. No pericardial effusion is seen. MEDIASTINUM AND BARBIE, LOWER NECK AND AXILLA: The visualized thyroid gland is within normal limits. Small hilar and mediastinal lymph nodes which are not pathologically enlarged by size criteria, several of which are calcified. No axillary lymphadenopathy. Esophagus appears within normal limits as seen. LUNGS AND AIRWAYS: The trachea and central airways are patent. No endobronchial lesion. There are calcified granulomas. No consolidation. No effusion. No pneumothorax. Minimal areas of atelectasis, predominantly at the lung bases. 3 mm nodule in the left lower lobe, image 68, of doubtful clinical significance and likely an additional granuloma but no calcifications are noted nodule. UPPER ABDOMEN: The visualized subdiaphragmatic structures demonstrate no acute abnormality. 7 mm nonobstructing calculus noted within the visible portions of the upper pole of the left kidney. CHEST WALL AND OSSEOUS STRUCTURES: Degenerate changes. No acute process. IMPRESSION: No evidence of a pulmonary embolism. MACRO: None. Signed by: Dar Lisa 09/14/2024 1:24 PM Dictation workstation: [id number] [facility] Work Phone: Radiology Study observation (narrative) [facility] Work Phone: CT Chest W contrast IV and C T angiogram Pulmonary arteries for pulmonary embolus W contrast IVOrdered By: Dar Lisa on 09-14-2024 [facility] Work Phone: Coagulation surface inducedo n 09-14-2024 aPTT Coag (PPP) [Time] 36 s Normal 26-36 [facility] Comment on above: Order Comment: The A PTT is no longer used for monitoring Unfractionated Heparin Therapy. For monitoring Heparin Therapy, use the Heparin Assay. Performed By: #### 1 4979-9 #### LOVE RODNEY ([id number]) [facility] ([facility]) [address] [place] [address] Coagulation tissue factor in ducedon 09-14-2024 PT Coag (PPP) [Time] 12.1 s Normal 9.8-12.4 [facility] Comment on above: Performed By: #### 5 902-2 #### LOVE RODNEY ([id number]) [facility] ([facility]) [address] [place] [id number] Comprehensive metabolic 2000 panelon 09-14-2024 Albumin BCP dye [Mass/Vol] 4.2 g/dL 3.4 - 5.0 g/dL [facility] ALP [Catalytic activity/Vol] 91 U/L 33 - 110 U/L [facility] ALT With P-5'-P [Catalytic activity/Vol] 20 U/L 7 - 45 U/L [facility] Comment on above: Patients treated wit h Sulfasalazine may generate falsely decreased results for ALT. Anion gap [Moles/Vol] 14 mmol/L 10 - 20 mmol/L [facility] AST With P-5'-P [Catalytic activity/Vol] 24 U/L 9 - 39 U/L [facility] Comment on above: MILD HEMOLYSIS DETEC VAZQUEZ. The result may be falsely elevated due to hemolysis or other interferents. Clinical correlation is recommended. Repeat testing may be considered. Bilirubin [Mass/Vol] 0.7 mg/dL 0.0 - 1.2 mg/dL [facility] Calcium [Mass/Vol] 9.3 mg/dL 8.6 - 10. 3 mg/dL [facility] Chloride [Moles/Vol] 105 mmol/L 98 - 107 mmol/L [facility] CO2 [Moles/Vol] 23 mmol/L 21 - 32 mmol/L [facility] Creatinine [Mass/Vol] 0.65 mg/dL 0.50 - 1.05 mg/dL [facility] eGFR - PINF [facility] Comment on above: Calculations of maee mated GFR are performed using the 2020 CKD-EPI Study Refit equation without the race variable for the IDMS-Traceable creatinine methods. https://jasn.asnjournals.org/content//ASN.53299267 88 Glucose [Mass/Vol] 95 mg/dL 74 - 99 mg/dL [facility] Potassium [Moles/Vol] 4.8 mmol/L 3.5 - 5.3 mmol/L [facility] Comment on above: MILD HEMOLYSIS DETEC VAZQUEZ. The result may be falsely elevated due to hemolysis or other interferents. Clinical correlation is recommended. Repeat testing may be considered. Protein [Mass/Vol] 6.7 g/dL 6.4 - 8.2 g/dL [facility] Sodium [Moles/Vol] 137 mmol/L 136 - 145 mmol/L [facility] Urea nitrogen [Mass/Vol] 10 mg/dL 6 - 23 mg/dL [facility] Albumin BCP dye [Mass/Vol] 4.2 g/dL Normal 3.4-5.0 [facility] Comment on above: Performed By: #### 2 4323-8 #### KATE STEVENS ([id number]) [facility] ([facility]) [facility] [place] [address] ALP [Catalytic activity/Vol] 91 U/L Normal 33-110 [facility] Comment on above: Performed By: #### 2 4323-8 #### KATE STEVENS ([id number]) [facility] ([facility]) [address] [place] [address] 95098 ALT With P-5'-P [Catalytic activity/Vol] 20 U/L Normal 7-45 [facility] Comment on above: Result Comment: Rosa ents treated with Sulfasalazine may generate falsely decreased results for ALT. Performed By: #### 2 4323-8 #### KATE STEVENS ([id number]) [facility] ([facility]) [address] [place] [address] Anion gap [Moles/Vol] 14 mmol/L Normal 10-20 [facility] Comment on above: Performed By: #### 2 4323-8 #### KATE STEVENS ([id number]) [facility] ([facility]) [facility] [place] [address] AST With P-5'-P [Catalytic activity/Vol] 24 U/L Normal 9-39 [facility] Comment on above: Result Comment: MILD HEMOLYSIS DETECTED. The result may be falsely elevated due to hemolysis or other interferents. Clinical correlation is recommended. Repeat testing may be considered. Performed By: #### 2 4323-8 #### KATE STEVENS ([id number]) [facility] ([facility]) [address] [place] [address] 52881 Bilirubin [Mass/Vol] 0.7 mg/dL Normal 0.0-1.2 [facility] Comment on above: Performed By: #### 2 4323-8 #### KATE STEVENS ([id number]) [facility] ([facility]) [address] [place] [address] 76203 Calcium [Mass/Vol] 9.3 mg/dL Normal 8.6-10.3 [facility] Comment on above: Performed By: #### 2 4323-8 #### KATE STEVENS ([id number]) [facility] ([facility]) [address] [place] [address] 90323 Chloride [Moles/Vol] 105 mmol/L Normal 98-107 [facility] Comment on above: Performed By: #### 2 4323-8 #### KATE STEVENS ([id number]) [facility] ([facility]) [address] [place] [address] 52518 CO2 [Moles/Vol] 23 mmol/L Normal 21-32 [facility] Comment on above: Performed By: #### 2 4323-8 #### KATE STEVENS ([id number]) [facility] ([facility]) [address] [place] [address] 84741 Creatinine [Mass/Vol] 0.65 mg/dL Normal 0.50-1.05 [facility] Comment on above: Performed By: #### 2 4323-8 #### KATE STEVENS ([id number]) [facility] ([facility]) [address] [place] [address] 25041 GFR/1.73 sq M.predicted MDRD (S/P/Bld) [Vol rate/Area] mL/min/{1.73_m2} Normal >60 [facility] Comment on above: Result Comment: Calc ulations of estimated GFR are performed using the 2020 CKD-EPI Study Refit equation without the race variable for the IDMS-Traceable creatinine methods. https://jasn.asnjournals.org/content//ASN.90847525 88 Performed By: #### 2 4323-8 #### KATE STEVENS ([id number]) [facility] ([facility]) [address] [place] [address] 91789 Glucose [Mass/Vol] 95 mg/dL Normal 74-99 [facility] Comment on above: Performed By: #### 2 4323-8 #### KATE STEVENS ([id number]) [facility] ([facility]) [address] [place] [address] 60062 Potassium [Moles/Vol] 4.8 mmol/L Normal 3.5-5.3 [facility] Comment on above: Result Comment: MILD HEMOLYSIS DETECTED. The result may be falsely elevated due to hemolysis or other interferents. Clinical correlation is recommended. Repeat testing may be considered. Performed By: #### 2 4323-8 #### KATE STEVENS ([id number]) [facility] ([facility]) [address] [place] [address] 91132 Protein [Mass/Vol] 6.7 g/dL Normal 6.4-8.2 [facility] Comment on above: Performed By: #### 2 4323-8 #### KATE STEVENS ([id number]) [facility] ([facility]) [address] [place] [address] 01411 Sodium [Moles/Vol] 137 mmol/L Normal 136-145 [facility] Comment on above: Performed By: #### 2 4323-8 #### KATE STEVENS ([id number]) [facility] ([facility]) [address] [place] [address] 63754 Urea nitrogen [Mass/Vol] 10 mg/dL Normal 6-23 [facility] Comment on above: Performed By: #### 2 4323-8 #### KATE STEVENS ([id number]) [facility] ([facility]) [address] [place] [address] D-Dimer, VTE Exclusionon Fibrin D-dimer FEU (PPP) [Mass/Vol] 891 High NINF [facility] ECG 12-LEADon 09-14-2024 ECG 12-LEAD Ventricular Rate 88 Atrial Rate 88 P-R Interval 126 QRS Duration 82 Q-T Interval 380 QTC Calculation(Bazett) 459 P [place] 58 R [place] 35 T [place] 46 QRS Count 15 Q Onset 220 P Onset 157 P Offset 215 T Offset 410 QTC Fredericia 431 Diagnosis Normal sinus rhythm Normal ECG No previous ECGs available See ED provider note for full interpretation and clinical correlation Confirmed by Angela Stallings ([id number]) on 09/16/2024 6:34:33 PM Normal [facility] Fibrin D-dimer FEUon 025 Fibrin D-dimer FEU (PPP) [Mass/Vol] 891 ng/mL FEU High <=500 [facility] Comment on above: Order Comment: The V TE Exclusion D-Dimer assay is reported in ng/mL Fibrinogen Equivalent Units (FEU). Per tin cutter's instructions for use, a value of less than 500 ng/mL (FEU) may help to exclude DVT or PE in outpatients when the assay is used with a clinical pretest probability assessment.(AEMR must utilize and document eCalc 'Wells Score Deep Vein Thrombosis Risk' for DVT exclusion only. Emergency Department should utilize Guidelines for Emergency Department Use of the VTE Exclusion D-Dimer and Clinical Pretest probability assessment model for DVT or PE exclusion.) Performed By: #### 4 8065-7 #### LOVE RODNEY ([id number]) [facility] ([facility]) [address] [place] [address] Fibrin D-dimer FEU (PPP) [Ma ss/Vol]on 09-14-2024 Interpretation and review of laboratory results Abnormal [facility] The VTE Exclusion D- Dimer assay is reported in ng/mL Fibrinogen Equivalent Units (FEU). Per tin cutter's instructions for use, a value of less than 500 ng/mL (FEU) may help to exclude DVT or PE in outpatients when the assay is used with a clinical pretest probability assessment.(AEMR must utilize and document eCalc 'Wells Score Deep Vein Thrombosis Risk' for DVT exclusion only. Emergency Department should utilize Guidelines for Emergency Department Use of the VTE Exclusion D-Dimer and Clinical Pretest probability assessment model for DVT or PE exclusion.) [facility] Magnesiumon 09-14-2024 Magnesium [Mass/Vol] 1.96 mg/dL 1.60 - 2.40 mg/dL [facility] Magnesium [Mass/Vol] 1.96 mg/dL Normal 1.60-2.40 [facility] Comment on above: Performed By: #### 1 9123-9 #### KATE STEVENS ([id number]) [facility] ([facility]) [facility] [place] [address] No Panel Informationon 09-14 Interpretation and review of laboratory results Normal [facility] Interpretation and review of laboratory results Normal [facility] PT Coag (PPP) [Time]on 09-14 INR Coag (PPP) [Relative time] 1.1 {INR} 0.9 - 1.1 [facility] INR Coag (PPP) [Relative time] 1.1 Normal 0.9-1.1 [facility] Comment on above: Performed By: #### 5 902-2 #### KATE STEVENS ([id number]) [facility] ([facility]) [address] [place] [address] Protime-INRon 09-14-2024 PT Coag (PPP) [Time] 12.1 s [facility] Tropinin I.cardiac panel Hig h sensitivity methodon 09-14-2024 Interpretation and review of laboratory results Normal [facility] Less than 99th perce ntile of normal range cutoff- Female and children under 18 years old <14 ng/L; Male <21 ng/L: Negative Repeat testing should be performed if clinically indicated. Female and children under 18 years old 14-50 ng/L; Male 21-50 ng/L: Consistent with possible cardiac damage and possible increased clinical risk. Serial measurements may help to assess extent of myocardial damage. >50 ng/L: Consistent with cardiac damage, increased clinical risk and myocardial infarction. Serial measurements may help assess extent of myocardial damage. NOTE: Children less than 1 year old may have higher baseline troponin levels and results should be interpreted in conjunction with the overall clinical context. NOTE: Troponin I testing is performed using a different testing methodology at [facility] than at other [facility]. Direct result comparisons should only be made within the same method. [facility] Interpretation and review of laboratory results Normal [facility] Less than 99th perce ntile of normal range cutoff- Female and children under 18 years old <14 ng/L; Male <21 ng/L: Negative Repeat testing should be performed if clinically indicated. Female and children under 18 years old 14-50 ng/L; Male 21-50 ng/L: Consistent with possible cardiac damage and possible increased clinical risk. Serial measurements may help to assess extent of myocardial damage. >50 ng/L: Consistent with cardiac damage, increased clinical risk and myocardial infarction. Serial measurements may help assess extent of myocardial damage. NOTE: Children less than 1 year old may have higher baseline troponin levels and results should be interpreted in conjunction with the overall clinical context. NOTE: Troponin I testing is performed using a different testing methodology at [facility] than at other [facility]. Direct result comparisons should only be made within the same method. [facility] Troponin I, High Sensitivity , Initialon 09-14-2024 Tropinin I.cardiac panel High sensitivity method 3 ng/L 0 - 13 ng/L [facility] Troponin I.cardiac panelon 0 09-14-2024 Tropinin I.cardiac panel High sensitivity method 4 ng/L Normal 0-13 [facility] Comment on above: Order Comment: Less than 99th percentile of normal range cutoff-Female and children under 18 years old <14 ng/L; Male <21 ng/L: NegativeRepeat testing should be performed if clinically indicated.Female and children under 18 years old 14-50 ng/L; Male 21-50 ng/L:Consistent with possible cardiac damage and possible increased clinicalrisk. Serial measurements may help to assess extent of myocardial damage.>50 ng/L: Consistent with cardiac damage, increased clinical risk andmyocardial infarction. Serial measurements may help assess extent ofmyocardial damage.NOTE: Children less than 1 year old may have higher baseline troponinlevels and results should be interpreted in conjunction with the overallclinical context.NOTE: Troponin I testing is performed using a differenttesting methodology at [facility] than at [facility]. Direct result comparisons should onlybe made within the same method. Performed By: #### 8 9577-1 ####KATE STEVENS ([id number])[facility] ([facility] [place] [id number] Tropinin I.cardiac panel High sensitivity method 3 ng/L Normal 0-13 [facility] Comment on above: Order Comment: Less than 99th percentile of normal range cutoff- Female and children under 18 years old <14 ng/L; Male <21 ng/L: Negative Repeat testing should be performed if clinically indicated. Female and children under 18 years old 14-50 ng/L; Male 21-50 ng/L: Consistent with possible cardiac damage and possible increased clinical risk. Serial measurements may help to assess extent of myocardial damage. >50 ng/L: Consistent with cardiac damage, increased clinical risk and myocardial infarction. Serial measurements may help assess extent of myocardial damage. NOTE: Children less than 1 year old may have higher baseline troponin levels and results should be interpreted in conjunction with the overall clinical context. NOTE: Troponin I testing is performed using a different testing methodology at [facility] than at [facility]. Direct result comparisons should only be made within the same method. Performed By: #### 8 9577-1 #### KATE STEVENS ([id number]) [facility] ([facility]) [facility] [place] [id number] Troponin, High Sensitivity, 1 Houron 09-14-2024 Tropinin I.cardiac panel High sensitivity method 4 ng/L 0 - 13 ng/L [facility] XR RIBS 2 VIEWS LEFT WITH CH EST PA OR APon 09-14-2024 XR RIBS 2 VIEWS LEFT WITH CHEST PA OR AP Interpreted By: Lele Hernandez, STUDY: XR RIBS 2 VIEWS LEFT WITH CHEST PA OR AP; ; 09/14/2024 12:14 pm INDICATION: Signs/Symptoms:left sided rib pain. COMPARISON: January 30, 2021 CT abdomen and pelvis ACCESSION NUMBER(S): [id number] ORDERING CLINICIAN: ANGELA BALTAZAR FINDINGS: Five views demonstrate no acute displaced rib fracture or suspicious osseous lesion. There are scattered benign-appearing calcifications involving the chest compatible with postinflammatory calcifications. Cardiac silhouette size within normal limits. No consolidative pneumonia, edema, effusion or pneumothorax. The visualized portion of the abdomen is unremarkable. There are cholecystectomy clips. IMPRESSION: No acute significant abnormality. Scattered likely postinflammatory calcifications. MACRO: None Signed by: Lele Hernandez 09/14/2024 12:20 PM Dictation workstation: [id number] [facility] XR Ribs Views and Chest PAon 09-14-2024 No acute significant abnormality. Scattered likely postinflammatory calcifications. MACRO: None Signed by: Lele Hernandez 09/14/2024 12:20 PM Dictation workstation: [id number] MMODAL Interpreted By: Lele Trammell, STUDY: XR RIBS 2 VIEWS LEFT WITH CHEST PA OR AP; ; 09/14/2024 12:14 pm INDICATION: Signs/Symptoms:left sided rib pain. COMPARISON: January 30, 2021 CT abdomen and pelvis ACCESSION NUMBER(S): [id number] ORDERING CLINICIAN: ANGELA BALTAZAR FINDINGS: Five views demonstrate no acute displaced rib fracture or suspicious osseous lesion. There are scattered benign-appearing calcifications involving the chest compatible with postinflammatory calcifications. Cardiac silhouette size within normal limits. No consolidative pneumonia, edema, effusion or pneumothorax. The visualized portion of the abdomen is unremarkable. There are cholecystectomy clips. MMODAL Lele Hernandez MD - 09/14/2024 Interpreted By: Lele Hernandez, STUDY: XR RIBS 2 VIEWS LEFT WITH CHEST PA OR AP; ; 09/14/2024 12:14 pm INDICATION: Signs/Symptoms:left sided rib pain. COMPARISON: January 30, 2021 CT abdomen and pelvis ACCESSION NUMBER(S): [id number] ORDERING CLINICIAN: ANGELA BALTAZAR FINDINGS: Five views demonstrate no acute displaced rib fracture or suspicious osseous lesion. There are scattered benign-appearing calcifications involving the chest compatible with postinflammatory calcifications. Cardiac silhouette size within normal limits. No consolidative pneumonia, edema, effusion or pneumothorax. The visualized portion of the abdomen is unremarkable. There are cholecystectomy clips. IMPRESSION: No acute significant abnormality. Scattered likely postinflammatory calcifications. MACRO: None Signed by: Lele Hernandez 09/14/2024 12:20 PM Dictation workstation: [id number] [facility] Work Phone: Radiology Study observation (narrative) [facility] Work Phone: XR Ribs Views and Chest PAOr dered By: Lele Hernandez on 09-14-2024 [facility] Work Phone: aPTTon 09-14-2024 aPTT Coag (PPP) [Time] 36 s [facility] aPTT Coag (PPP) [Time]on The APTT is no longe r used for monitoring Unfractionated Heparin Therapy. For monitoring Heparin Therapy, use the Heparin Assay. [facility] MR LUMBAR SPINE W AND WO IV CONTRASTon 06-19-2024 MR LUMBAR SPINE W AND WO IV CONTRAST Interpreted By: Davis Jacome, STUDY: MR LUMBAR SPINE W AND WO IV CONTRAST; ; 06/19/2024 2:17 pm INDICATION: Signs/Symptoms:leg ache. ,M54.16 Radiculopathy, lumbar region,M96.1 Postlaminectomy syndrome, not elsewhere classified COMPARISON: MRI of the lumbar spine from 11/23/2013. ACCESSION NUMBER(S): [id number] ORDERING CLINICIAN: CARLOS DORMAN TECHNIQUE: MRI of the lumbar spine was performed with the acquisition of sagittal T2, sagittal T1, sagittal STIR, axial T1, axial T2, and sagittal and axial T1 weighted postcontrast sequences. Contrast: 20 mL of Dotarem was injected intravenously. FINDINGS: This report assumes 5 non-rib bearing lumbar vertebral bodies. The lowest intervertebral disc will be labeled L5-S1. There is slight grade 1 anterolisthesis at L5-S1. Vertebral body heights are maintained. There is moderate intervertebral disc height narrowing at L5-S1 with chronic degenerative endplate changes including fatty marrow changes (type 2 Modic changes). Marrow signal is overall within normal limits. The conus medullaris terminates at the level of L1-L2 and is unremarkable in appearance. There is no mass or abnormal enhancement located within the conus medullaris or cauda equina nerve roots. At T12-L1, there is no posterior disc contour abnormality. There is no spinal canal stenosis or neural foraminal narrowing. There is a prominent right perineural cyst. At L1-L2, there is no posterior disc contour abnormality. There is no spinal canal stenosis or neural foraminal narrowing. There is no facet osteoarthropathy. There is a prominent right perineural cyst. At L2-L3, there is no posterior disc contour abnormality. There is no spinal canal stenosis or neural foraminal narrowing. There is no facet osteoarthropathy. At L3-L4, there is no posterior disc contour abnormality. There is no spinal canal stenosis or neural foraminal narrowing. There is mild bilateral facet osteoarthropathy. At L4-L5, there is a small diffuse disc bulge which contains an annular fissure. There is no spinal canal stenosis. There is extension of disc into the bilateral neural foramina and there is minimal right neural foraminal narrowing. There is at most mild bilateral facet osteoarthropathy. At L5-S1, there is a diffuse disc bulge with osteophytic spurring. There is no spinal canal stenosis. There is extension of disc and osteophyte into the bilateral neural foramina and there is resulting moderate bilateral neural foraminal narrowing. There is no striking facet osteoarthropathy. IMPRESSION: Degenerative changes, most pronounced at L4-L5 and L5-S1 as detailed above. There is no striking spinal canal stenosis at any level. There is a small annular fissure within the L4-L5 intervertebral disc and there is moderate bilateral neural foraminal narrowing at L5-S1. This study was interpreted at [facility]. MACRO: None Signed by: Davis Jacome 06/19/2024 2:50 PM Dictation workstation: [id number] [facility] MR Lumbar spine WO and W con trast Adriel 06-19-2024 Degenerative changes , most pronounced at L4-L5 and L5-S1 as detailed above. There is no striking spinal canal stenosis at any level. There is a small annular fissure within the L4-L5 intervertebral disc and there is moderate bilateral neural foraminal narrowing at L5-S1. This study was interpreted at [facility]. MACRO: None Signed by: Davis Jacome 06/19/2024 2:50 PM Dictation workstation: [id number] MMODAL Interpreted By: Davis Ferraro, STUDY: MR LUMBAR SPINE W AND WO IV CONTRAST; ; 06/19/2024 2:17 pm INDICATION: Signs/Symptoms:leg ache. ,M54.16 Radiculopathy, lumbar region,M96.1 Postlaminectomy syndrome, not elsewhere classified COMPARISON: MRI of the lumbar spine from 11/23/2013. ACCESSION NUMBER(S): [id number] ORDERING CLINICIAN: CARLOS DORMAN TECHNIQUE: MRI of the lumbar spine was performed with the acquisition of sagittal T2, sagittal T1, sagittal STIR, axial T1, axial T2, and sagittal and axial T1 weighted postcontrast sequences. Contrast: 20 mL of Dotarem was injected intravenously. FINDINGS: This report assumes 5 non-rib bearing lumbar vertebral bodies. The lowest intervertebral disc will be labeled L5-S1. There is slight grade 1 anterolisthesis at L5-S1. Vertebral body heights are maintained. There is moderate intervertebral disc height narrowing at L5-S1 with chronic degenerative endplate changes including fatty marrow changes (type 2 Modic changes). Marrow signal is overall within normal limits. The conus medullaris terminates at the level of L1-L2 and is unremarkable in appearance. There is no mass or abnormal enhancement located within the conus medullaris or cauda equina nerve roots. At T12-L1, there is no posterior disc contour abnormality. There is no spinal canal stenosis or neural foraminal narrowing. There is a prominent right perineural cyst. At L1-L2, there is no posterior disc contour abnormality. There is no spinal canal stenosis or neural foraminal narrowing. There is no facet osteoarthropathy. There is a prominent right perineural cyst. At L2-L3, there is no posterior disc contour abnormality. There is no spinal canal stenosis or neural foraminal narrowing. There is no facet osteoarthropathy. At L3-L4, there is no posterior disc contour abnormality. There is no spinal canal stenosis or neural foraminal narrowing. There is mild bilateral facet osteoarthropathy. At L4-L5, there is a small diffuse disc bulge which contains an annular fissure. There is no spinal canal stenosis. There is extension of disc into the bilateral neural foramina and there is minimal right neural foraminal narrowing. There is at most mild bilateral facet osteoarthropathy. At L5-S1, there is a diffuse disc bulge with osteophytic spurring. There is no spinal canal stenosis. There is extension of disc and osteophyte into the bilateral neural foramina and there is resulting moderate bilateral neural foraminal narrowing. There is no striking facet osteoarthropathy. [facility] Davis Jacome MD - 06/19/2024 Interpreted By: Davis Jacome, STUDY: MR LUMBAR SPINE W AND WO IV CONTRAST; ; 06/19/2024 2:17 pm INDICATION: Signs/Symptoms:leg ache. ,M54.16 Radiculopathy, lumbar region,M96.1 Postlaminectomy syndrome, not elsewhere classified COMPARISON: MRI of the lumbar spine from 11/23/2013. ACCESSION NUMBER(S): [id number] ORDERING CLINICIAN: CARLOS DORMNA TECHNIQUE: MRI of the lumbar spine was performed with the acquisition of sagittal T2, sagittal T1, sagittal STIR, axial T1, axial T2, and sagittal and axial T1 weighted postcontrast sequences. Contrast: 20 mL of Dotarem was injected intravenously. FINDINGS: This report assumes 5 non-rib bearing lumbar vertebral bodies. The lowest intervertebral disc will be labeled L5-S1. There is slight grade 1 anterolisthesis at L5-S1. Vertebral body heights are maintained. There is moderate intervertebral disc height narrowing at L5-S1 with chronic degenerative endplate changes including fatty marrow changes (type 2 Modic changes). Marrow signal is overall within normal limits. The conus medullaris terminates at the level of L1-L2 and is unremarkable in appearance. There is no mass or abnormal enhancement located within the conus medullaris or cauda equina nerve roots. At T12-L1, there is no posterior disc contour abnormality. There is no spinal canal stenosis or neural foraminal narrowing. There is a prominent right perineural cyst. At L1-L2, there is no posterior disc contour abnormality. There is no spinal canal stenosis or neural foraminal narrowing. There is no facet osteoarthropathy. There is a prominent right perineural cyst. At L2-L3, there is no posterior disc contour abnormality. There is no spinal canal stenosis or neural foraminal narrowing. There is no facet osteoarthropathy. At L3-L4, there is no posterior disc contour abnormality. There is no spinal canal stenosis or neural foraminal narrowing. There is mild bilateral facet osteoarthropathy. At L4-L5, there is a small diffuse disc bulge which contains an annular fissure. There is no spinal canal stenosis. There is extension of disc into the bilateral neural foramina and there is minimal right neural foraminal narrowing. There is at most mild bilateral facet osteoarthropathy. At L5-S1, there is a diffuse disc bulge with osteophytic spurring. There is no spinal canal stenosis. There is extension of disc and osteophyte into the bilateral neural foramina and there is resulting moderate bilateral neural foraminal narrowing. There is no striking facet osteoarthropathy. IMPRESSION: Degenerative changes, most pronounced at L4-L5 and L5-S1 as detailed above. There is no striking spinal canal stenosis at any level. There is a small annular fissure within the L4-L5 intervertebral disc and there is moderate bilateral neural foraminal narrowing at L5-S1. This study was interpreted at [facility]. MACRO: None Signed by: Davis Jacome 06/19/2024 2:50 PM Dictation workstation: [id number] [facility] Work Phone: Radiology Study observation (narrative) [facility] Work Phone: MR Lumbar spine WO and W con trast IVOrdered By: Davis Jacome on 06-19-2024 [facility] Work Phone: Comprehensive metabolic 2000 panelon 02-14-2024 Albumin BCP dye [Mass/Vol] 4.1 g/dL Normal 3.4-5.0 [facility] Comment on above: Performed By: #### 2 4323-8 #### KATE STEVENS ([id number]) [facility] ([facility]) [facility] [place] [id number] ALP [Catalytic activity/Vol] 88 U/L Normal 33-110 [facility] Comment on above: Performed By: #### 2 4323-8 #### KATE STEVENS ([id number]) [facility] ([facility]) [address] [place] [address] 12185 ALT With P-5'-P [Catalytic activity/Vol] 32 U/L Normal 7-45 [facility] Comment on above: Result Comment: Rosa ents treated with Sulfasalazine may generate falsely decreased results for ALT. Performed By: #### 2 4323-8 #### KATE STEVENS ([id number]) [facility] ([facility]) [address] [place] [address] Anion gap [Moles/Vol] 12 mmol/L Normal 10-20 [facility] Comment on above: Performed By: #### 2 4323-8 #### KATE STEVENS ([id number]) [facility] ([facility]) [address] [place] [address] AST With P-5'-P [Catalytic activity/Vol] 26 U/L Normal 9-39 [facility] Comment on above: Performed By: #### 2 4323-8 #### KATE STEVENS ([id number]) [facility] ([facility]) [address] [place] [address] Bilirubin [Mass/Vol] 0.4 mg/dL Normal 0.0-1.2 [facility] Comment on above: Performed By: #### 2 432-8 #### KATE STEVENS ([id number]) [facility] ([facility]) [address] [place] [address] Calcium [Mass/Vol] 9.1 mg/dL Normal 8.6-10.3 [facility] Comment on above: Performed By: #### 2 432-8 #### KATE STEVENS ([id number]) [facility] ([facility]) [address] [place] [address] Chloride [Moles/Vol] 107 mmol/L Normal 98-107 [facility] Comment on above: Performed By: #### 2 4323-8 #### KATE STEVENS ([id number]) [facility] ([facility]) [address] [place] [address] CO2 [Moles/Vol] 24 mmol/L Normal 21-32 [facility] Comment on above: Performed By: #### 2 4323-8 #### KATE STEVENS ([id number]) [facility] ([facility]) [address] [place] [address] Creatinine [Mass/Vol] 0.75 mg/dL Normal 0.50-1.05 [facility] Comment on above: Performed By: #### 2 4323-8 #### KATE STEVENS ([id number]) [facility] ([facility]) [address] [place] [address] 13536 GFR/1.73 sq M.predicted MDRD (S/P/Bld) [Vol rate/Area] mL/min/{1.73_m2} Normal >60 [facility] Comment on above: Result Comment: Calc ulations of estimated GFR are performed using the 2020 CKD-EPI Study Refit equation without the race variable for the IDMS-Traceable creatinine methods. https://jasn.asnjournals.org/content//ASN.65500452 88 Performed By: #### 2 4323-8 #### KATE STEVENS ([id number]) [facility] ([facility]) [address] [place] [address] Glucose [Mass/Vol] 80 mg/dL Normal 74-99 [facility] Comment on above: Performed By: #### 2 4323-8 #### KATE STEVENS ([id number]) [facility] ([facility]) [address] [place] [address] 649[address] Potassium [Moles/Vol] 4.2 mmol/L Normal 3.5-5.3 [facility] Comment on above: Performed By: #### 2 4323-8 #### KATE STEVENS ([id number]) [facility] ([facility]) [address] [place] [address]3597 Protein [Mass/Vol] 6.7 g/dL Normal 6.4-8.2 [facility] Comment on above: Performed By: #### 2 4323-8 #### KATE STEVENS ([id number]) [facility] ([facility]) [address] [place] [address]17 Sodium [Moles/Vol] 139 mmol/L Normal 136-145 [facility] Comment on above: Performed By: #### 2 4323-8 #### KATE STEVENS ([id number]) [facility] ([facility]) [address] [place] [address] Urea nitrogen [Mass/Vol] 18 mg/dL Normal 6-23 [facility] Comment on above: Performed By: #### 2 4323-8 #### KATE STEVENS ([id number]) [facility] ([facility]) [address] [place] [address] HbA1c (Bld) [Mass fraction]o n 02-14-2024 Average glucose Estimated from glycated hemoglobin (Bld) [Mass/Vol] 114 mg/dL Normal Not Established [facility] Comment on above: Order Comment: Diagn osis of Egkfknyf-ItvbuqAdg-Cmpzyntx: < or = 5.6%Increased risk for developing diabetes: 5.7-6.4%Diagnostic of diabetes: > or = 6.5% Performed By: #### 2 4323-8 #### KATE STEVENS ([id number]) [facility] ([facility]) [facility] [place] [address] Hemoglobin A1c/Hemoglobin.to evelyn 02-14-2024 HbA1c (Bld) [Mass fraction] 5.6 % Normal see below [facility] Comment on above: Order Comment: Diagn osis of Hgkgmcfq-OhflgdJgl-Qvgjggzr: < or = 5.6%Increased risk for developing diabetes: 5.7-6.4%Diagnostic of diabetes: > or = 6.5% Performed By: #### 2 4323-8 #### KATE STEVENS ([id number]) [facility] ([facility]) [address] [place], [place] [id number] Lipid 1996 panelon 4 Cholesterol [Mass/Vol] 151 mg/dL Normal 0-199 [facility] Comment on above: Result Comment: Age Desirable Borderline High High 0-19 Y 0 - 169 170 - 199 >/= 200 20-24 Y 0 - 189 190 - 224 >/= 225 >24 Y 0 - 199 200 - 239 >/= 240 All ranges are based on fasting samples. Specific therapeutic targets will vary based on patient-specific cardiac risk. Pediatric guidelines reference:Pediatrics 2011, 128(S5).Adult guidelines reference: NCEP ATPIII Guidelines,EDELMIRA 2001, 258:2486-97 Venipuncture immediately after or during the administration of Metamizole may lead to falsely low results. Testing should be performed immediately prior to Metamizole dosing. Performed By: #### 2 4331-1 #### KATE STEVENS ([id number]) [facility] ([facility]) [address] [place] [address] Cholesterol in HDL [Mass/Vol] 63.0 mg/dL Normal [facility] Comment on above: Result Comment: Age Very Low Low Normal High 0-19 Y < 35 < 40 40-45 ---- 20-24 Y ---- < 40 >45 ---- >24 Y ---- < 40 40-60 >60 Performed By: #### 2 4331-1 #### KATE STEVENS ([id number]) [facility] ([facility]) [address] [place] [address]181 Cholesterol in LDL [Mass/Vol] 76 mg/dL Normal <=99 [facility] Comment on above: Result Comment: Near Borderline AGE Desirable Optimal High High Very High 0-19 Y 0 - 109 --- 110-129 >/= 130 ---- 20-24 Y 0 - 119 --- 120-159 >/= 160 ---- >24 Y 0 - 99 100-129 130-159 160-189 >/=190 Performed By: #### 2 4331-1 #### KATE STEVENS ([id number]) [facility] ([facility]) [address] [place] [address] Cholesterol in VLDL [Mass/Vol] 12 mg/dL Normal 0-40 [facility] Comment on above: Performed By: #### 2 4331-1 #### KATE STEVENS ([id number]) [facility] ([facility]) [address] [place] [address] CHOLESTEROL/HDL RATIO 2.4 Normal [facility] Comment on above: Result Comment: Ref Values Desirable < 3.4 High Risk > 5.0 Performed By: #### 2 4331-1 #### KATE STEVENS ([id number]) [facility] ([facility]) [address] [place] [address] 92600 NON HDL CHOLESTEROL 88 mg/dL Normal 0-149 [facility] Comment on above: Result Comment: Age Desirable Borderline High High Very High 0-19 Y 0 - 119 120 - 144 >/= 145 >/= 160 20-24 Y 0 - 149 150 - 189 >/= 190 ---- >24 Y 30 mg/dL above LDL Cholesterol goal Performed By: #### 2 4331-1 #### KATE STEVENS ([id number]) [facility] ([facility]) [address] [place] [address] Triglyceride [Mass/Vol] 61 mg/dL Normal 0-149 [facility] Comment on above: Result Comment: Age Desirable Borderline High High Very High 0 D-90 D 19 - 174 ---- ---- ---- 91 D- 9 Y 0 - 74 75 - 99 >/= 100 ---- 10-19 Y 0 - 89 90 - 129 >/= 130 ---- 20-24 Y 0 - 114 115 - 149 >/= 150 ---- >24 Y 0 - 149 150 - 199 200- 499 >/= 500 Venipuncture immediately after or during the administration of Metamizole may lead to falsely low results. Testing should be performed immediately prior to Metamizole dosing. Performed By: #### 2 4331-1 #### KATE STEVENS ([id number]) [facility] ([facility]) [address] [place] [address] TSH WITH REFLEX TO FREE T4 I F ABNORMALon 02-14-2024 TSH Qn 1.45 m[IU]/L Normal 0.44-3.98 [facility] Comment on above: Order Comment: TSH t esting is performed using different testing methodology at [facility] than at other [facility]. Direct result comparisons should only be made within the same method. Performed By: #### 2 4323-8 #### KATE STEVENS ([id number]) [facility] ([facility]) [address] [place], [place] [id number] BI MAMMO BILATERAL SCREENING TOMOSYNTHESISon 01-20-2024 BI MAMMO BILATERAL SCREENING TOMOSYNTHESIS Interpreted By: Xavi Chavarria, STUDY: BI MAMMO BILATERAL SCREENING TOMOSYNTHESIS; 01/20/2024 9:12 am ACCESSION NUMBER(S): [id number] ORDERING CLINICIAN: LAN DAWN INDICATION: Screening. COMPARISON: Digital mammograms dated 01/17/2023 FINDINGS: CC and MLO 2D digital mammograms and digital breast tomosynthesis images were obtained of the bilateral breasts. 3-D volume images were reconstructed in 4 views at an independent workstation as 1 mm slices through the breasts in both the CC and MLO projections. Density: The breast tissue is almost entirely fatty. Scattered dystrophic calcifications are seen bilaterally, similar to prior studies. No discrete mass or focal asymmetry is identified. No suspicious microcalcifications or foci of architectural distortion are seen. There has been no significant change. This study was interpreted with CAD. IMPRESSION: No mammographic evidence of malignancy. BI-RADS CATEGORY: BI-RADS Category: 2 Benign. Recommendation: Routine Screening Mammogram in 1 Year. Recommended Date: 1 Year. Laterality: Bilateral. MACRO: None Signed by: Xavi Chavarria 01/20/2024 11:24 AM Dictation workstation: [id number] [facility] DBT Breast - bilateralon No mammographic evid ence of malignancy. BI-RADS CATEGORY: BI-RADS Category: 2 Benign. Recommendation: Routine Screening Mammogram in 1 Year. Recommended Date: 1 Year. Laterality: Bilateral. MACRO: None Signed by: Xavi Chavarria 01/20/2024 11:24 AM Dictation workstation: [id number] [facility] Interpreted By: Xavi Saldivar, STUDY: BI MAMMO BILATERAL SCREENING TOMOSYNTHESIS; 01/20/2024 9:12 am ACCESSION NUMBER(S): [id number] ORDERING CLINICIAN: LAN DAWN INDICATION: Screening. COMPARISON: Digital mammograms dated 01/17/2023 FINDINGS: CC and MLO 2D digital mammograms and digital breast tomosynthesis images were obtained of the bilateral breasts. 3-D volume images were reconstructed in 4 views at an independent workstation as 1 mm slices through the breasts in both the CC and MLO projections. Density: The breast tissue is almost entirely fatty. Scattered dystrophic calcifications are seen bilaterally, similar to prior studies. No discrete mass or focal asymmetry is identified. No suspicious microcalcifications or foci of architectural distortion are seen. There has been no significant change. This study was interpreted with CAD. MMODAL Xavi Chavarria MD - 01/20/2024 Interpreted By: Xavi Chavarria, STUDY: BI MAMMO BILATERAL SCREENING TOMOSYNTHESIS; 01/20/2024 9:12 am ACCESSION NUMBER(S): [id number] ORDERING CLINICIAN: LAN DAWN INDICATION: Screening. COMPARISON: Digital mammograms dated 01/17/2023 FINDINGS: CC and MLO 2D digital mammograms and digital breast tomosynthesis images were obtained of the bilateral breasts. 3-D volume images were reconstructed in 4 views at an independent workstation as 1 mm slices through the breasts in both the CC and MLO projections. Density: The breast tissue is almost entirely fatty. Scattered dystrophic calcifications are seen bilaterally, similar to prior studies. No discrete mass or focal asymmetry is identified. No suspicious microcalcifications or foci of architectural distortion are seen. There has been no significant change. This study was interpreted with CAD. IMPRESSION: No mammographic evidence of malignancy. BI-RADS CATEGORY: BI-RADS Category: 2 Benign. Recommendation: Routine Screening Mammogram in 1 Year. Recommended Date: 1 Year. Laterality: Bilateral. MACRO: None Signed by: Xavi Chavarria 01/20/2024 11:24 AM Dictation workstation: [id number] [facility] Work Phone: Radiology Study observation (narrative) [facility] Work Phone: DBT Breast - bilateralOrdere d By: Xavi Chavarria on 01-20-2024 [facility] Work Phone: XR Knee - bilateral 3 Viewso n 07-30-2023 Interpreted By: Raquel Black ud, STUDY: XR KNEE 3 VIEWS BILATERAL; 07/29/2023 5:39 pm INDICATION: Signs/Symptoms:Pain. COMPARISON: none ACCESSION NUMBER(S): [id number] ORDERING CLINICIAN: CARLOS DORMAN FINDINGS: Three views bilateral knees. Bilateral knee Mild tricompartment productive degenerative changes. Degenerative changes predominantly involving the medial compartment. No fracture or dislocation. No osseous lesion. No sizable effusion bilaterally. IMPRESSION Bilateral knee Mild tricompartment productive degenerative changes. Degenerative changes predominantly involving the medial compartment. MACRO none Signed by: Raquel Flores 07/30/2023 10:16 AM Dictation workstation: [id number] [facility] Kelsie Flores MD - 07/30/2023 Interpreted By: Raquel Flores, STUDY: XR KNEE 3 VIEWS BILATERAL; 07/29/2023 5:39 pm INDICATION: Signs/Symptoms:Pain. COMPARISON: none ACCESSION NUMBER(S): [id number] ORDERING CLINICIAN: CARLOS DORMAN FINDINGS: Three views bilateral knees. Bilateral knee Mild tricompartment productive degenerative changes. Degenerative changes predominantly involving the medial compartment. No fracture or dislocation. No osseous lesion. No sizable effusion bilaterally. IMPRESSION Bilateral knee Mild tricompartment productive degenerative changes. Degenerative changes predominantly involving the medial compartment. MACRO none Signed by: Raquel Flores 07/30/2023 10:16 AM Dictation workstation: [id number] [facility] Work Phone: XR Knee - bilateral 3 ViewsO rdered By: Kelsie Flores on 07-30-2023 [facility] Work Phone: XR Knee - bilateral 3 Viewso n 07-29-2023 Radiology Study observation (narrative) [facility] Work Phone: XR Wrist - right 3 Viewson 0 07-02-2023 No acute findings. MACRO: None Signed by: Sage Carcamo 07/02/2023 10:23 AM Dictation workstation: [id number] [facility] Interpreted By: Sage Martinez, STUDY: XR WRIST RIGHT 3+ VIEWS; 07/01/2023 8:18 am INDICATION: Signs/Symptoms:PAIN. COMPARISON: None. ACCESSION NUMBER(S): [id number] ORDERING CLINICIAN: WENDY RODRIGUEZ FINDINGS: Bony structures: Intact Joint spaces: Maintained Soft tissues: Unremarkable without significant edema or radiodense foreign body Other: None significant [facility] Sage Carcamo MD - 07/02/2023 Interpreted By: Sage Carcamo, STUDY: XR WRIST RIGHT 3+ VIEWS; 07/01/2023 8:18 am INDICATION: Signs/Symptoms:PAIN. COMPARISON: None. ACCESSION NUMBER(S): [id number] ORDERING CLINICIAN: WENDY RODRIGUEZ FINDINGS: Bony structures: Intact Joint spaces: Maintained Soft tissues: Unremarkable without significant edema or radiodense foreign body Other: None significant IMPRESSION: No acute findings. MACRO: None Signed by: Sage Carcamo 07/02/2023 10:23 AM Dictation workstation: [id number] [facility] Work Phone: XR Wrist - right 3 ViewsOrde red By: Sage Carcamo on 07-02-2023 [facility] Work Phone: XR Wrist - right 3 Viewson 0 07-01-2023 Radiology Study observation (narrative) [facility] Work Phone: CBC W Auto Differential pane l (Bld)on 06-10-2023 Basophils (Bld) [#/Vol] 0.04 x10*3/uL Normal 0.00-0.10 [facility] Comment on above: Performed By: #### 5 7021-8 #### KATE STEVENS ([id number]) [facility] ([facility]) [address] [place] [address] 53014 Basophils/100 WBC (Bld) 0.5 % Normal 0.0-2.0 [facility] Comment on above: Performed By: #### 5 7021-8 #### KATE STEVENS ([id number]) [facility] ([facility]) [address] [place] [address] 53384 Eosinophils (Bld) [#/Vol] 0.12 x10*3/uL Normal 0.00-0.70 [facility] Comment on above: Performed By: #### 5 7021-8 #### KATE STEVENS ([id number]) [facility] ([facility]) [address] [place] [address] 42040 Eosinophils/100 WBC (Bld) 1.6 % Normal 0.0-6.0 [facility] Comment on above: Performed By: #### 5 7021-8 #### KATE STEVENS ([id number]) [facility] ([facility]) [address] [place] [address] 24221 Erythrocyte distribution width (RBC) [Ratio] 13.2 % Normal 11.5-14.5 [facility] Comment on above: Performed By: #### 5 7021-8 #### KATE STEVENS ([id number]) [facility] ([facility]) [address] [place] [address] 78407 Hematocrit (Bld) [Volume fraction] 42.0 % Normal 36.0-46.0 [facility] Comment on above: Performed By: #### 5 7021-8 #### KATE STEVENS ([id number]) [facility] ([facility]) [address] [place], [place] [phone] Hemoglobin (Bld) [Mass/Vol] 13.1 g/dL Normal 12.0-16.0 [facility] Comment on above: Performed By: #### 5 7021-8 #### KATE STEVENS ([id number]) [facility] ([facility]) [address] [place] [address] 73738 Immature granulocytes (Bld) [#/Vol] 0.02 x10*3/uL Normal 0.00-0.70 [facility] Comment on above: Performed By: #### 5 7021-8 #### KATE STEVENS ([id number]) [facility] ([facility]) [address] [place] [address] 32376 Immature granulocytes/100 WBC (Bld) 0.3 % Normal 0.0-0.9 [facility] Comment on above: Result Comment: Cyndy ture Granulocyte Count (IG) includes promyelocytes, myelocytes and metamyelocytes but does not include bands. Percent differential counts (%) should be interpreted in the context of the absolute cell counts (cells/UL). Performed By: #### 5 7021-8 #### KATE STEVENS ([id number]) [facility] ([facility]) [address] [place] [address] 75002 Lymphocytes (Bld) [#/Vol] 2.49 x10*3/uL Normal 1.20-4.80 [facility] Comment on above: Performed By: #### 5 7021-8 #### KATE STEVENS ([id number]) [facility] ([facility]) [address] [place] [address] 23925 Lymphocytes/100 WBC (Bld) 33.0 % Normal 13.0-44.0 [facility] Comment on above: Performed By: #### 7021-8 #### KATE STEVENS ([id number]) [facility] ([facility]) [address] [place] [address] 85474 MCH (RBC) [Entitic mass] 29.2 pg Normal 26.0-34.0 [facility] Comment on above: Performed By: #### 5 7021-8 #### KATE STEVENS ([id number]) [facility] ([facility]) [address] [place] [address] 09663 MCHC (RBC) [Mass/Vol] 31.2 g/dL Low 32.0-36.0 [facility] Comment on above: Performed By: #### 5 7021-8 #### KATE STEVENS ([id number]) [facility] ([facility]) [address] [place] [address] 19640 MCV (RBC) [Entitic vol] 94 fL Normal 80-100 [facility] Comment on above: Performed By: #### 5 7021-8 #### KATE STEVENS ([id number]) [facility] ([facility]) [address] [place] [address] 95117 Monocytes (Bld) [#/Vol] 0.47 x10*3/uL Normal 0.10-1.00 [facility] Comment on above: Performed By: #### 5 7021-8 #### KATE STEVENS ([id number]) [facility] ([facility]) [address] [place] [address] 05511 Monocytes/100 WBC (Bld) 6.2 % Normal 2.0-10.0 [facility] Comment on above: Performed By: #### 5 7021-8 #### KATE STEVENS ([id number]) [facility] ([facility]) [address] [place] [address] 28894 Neutrophils (Bld) [#/Vol] 4.41 x10*3/uL Normal 1.20-7.70 [facility] Comment on above: Result Comment: Perc ent differential counts (%) should be interpreted in the context of the absolute cell counts (cells/uL). Performed By: #### 5 7021-8 #### KATE STEVENS ([id number]) [facility] ([facility]) [address] [place] [address] 16551 Neutrophils/100 WBC (Bld) 58.4 % Normal 40.0-80.0 [facility] Comment on above: Performed By: #### 5 7021-8 #### KATE STEVENS ([id number]) [facility] ([facility]) [address] [place], [place] [phone] Nucleated RBC/100 WBC (Bld) [Ratio] 0.0 /100 WBCs Normal 0.0-0.0 [facility] Comment on above: Performed By: #### 5 7021-8 #### KATE STEVENS ([id number]) [facility] ([facility]) [address] [place] [address] 61952 Platelets (Bld) [#/Vol] 358 x10*3/uL Normal 150-450 [facility] Comment on above: Performed By: #### 5 7021-8 #### KATE STEVENS ([id number]) [facility] ([facility]) [address] [place] [address] 47653 RBC (Bld) [#/Vol] 4.48 x10*6/uL Normal 4.00-5.20 [facility] Comment on above: Performed By: #### 5 7021-8 #### KATE STEVENS ([id number]) [facility] ([facility]) [address] [place] [address] 39978 WBC (Bld) [#/Vol] 7.6 x10*3/uL Normal 4.4-11.3 [facility] Comment on above: Performed By: #### 5 7021-8 #### KATE STEVENS ([id number]) [facility] ([facility]) [address] [place] [address] 70257 Calcidiolon 06-10-2023 25-hydroxyvitamin D3 [Mass/Vol] 8 ng/mL Low 30-100 [facility] Comment on above: Order Comment: Defic iency: < 20 ng/ml Insufficiency: 20-29 ng/ml Sufficiency: 30-100 ng/ml This assay accurately quantifies the sum of Vitamin D3, 25-Hydroxy and Vitamin D2,25-Hydroxy. Performed By: #### 1 989-3 #### KATE STEVENS ([id number]) [facility] ([facility]) [address] [place] [address] Cobalaminson 06-10-2023 Cobalamin (Vitamin B12) [Mass/Vol] 273 pg/mL Normal 211-911 [facility] Comment on above: Performed By: #### 2 132-9 #### KATE STEVENS ([id number]) [facility] ([facility]) [address] [place] [address] Comprehensive metabolic 2000 panelon 06-10-2023 Albumin BCP dye [Mass/Vol] 4.2 g/dL Normal 3.4-5.0 [facility] Comment on above: Performed By: #### 2 4323-8 #### KATE STEVENS ([id number]) [facility] ([facility]) [address] [place] [address] ALP [Catalytic activity/Vol] 110 U/L Normal 33-110 [facility] Comment on above: Performed By: #### 2 4323-8 #### KATE STEVENS ([id number]) [facility] ([facility]) [address] [place] [address] 05158 ALT With P-5'-P [Catalytic activity/Vol] 20 U/L Normal 7-45 [facility] Comment on above: Result Comment: Rosa ents treated with Sulfasalazine may generate falsely decreased results for ALT. Performed By: #### 2 4323-8 #### KATE STEVENS ([id number]) [facility] ([facility]) [address] [place] [address] 58692 Anion gap [Moles/Vol] 11 mmol/L Normal 10-20 [facility] Comment on above: Performed By: #### 2 4323-8 #### KATE STEVENS ([id number]) [facility] ([facility]) [address] [place] [address] AST With P-5'-P [Catalytic activity/Vol] 16 U/L Normal 9-39 [facility] Comment on above: Performed By: #### 2 4323-8 #### KATE STEVENS ([id number]) [facility] ([facility]) [address] [place] [address] 78809 Bilirubin [Mass/Vol] 0.5 mg/dL Normal 0.0-1.2 [facility] Comment on above: Performed By: #### 2 4322-8 #### KATE STEVENS ([id number]) [facility] ([facility]) [address] [place] [address] 73057 Calcium [Mass/Vol] 9.1 mg/dL Normal 8.6-10.3 [facility] Comment on above: Performed By: #### 2 4322-8 #### KATE STEVENS ([id number]) [facility] ([facility]) [address] [place] [address] 88641 Chloride [Moles/Vol] 105 mmol/L Normal 98-107 [facility] Comment on above: Performed By: #### 2 432-8 #### KATE STEVENS ([id number]) [facility] ([facility]) [address] [place] [address] CO2 [Moles/Vol] 28 mmol/L Normal 21-32 [facility] Comment on above: Performed By: #### 2 432-8 #### KATE STEVENS ([id number]) [facility] ([facility]) [address] [place] [address] 95968 Creatinine [Mass/Vol] 0.67 mg/dL Normal 0.50-1.05 [facility] Comment on above: Performed By: #### 2 432-8 #### KATE STEVENS ([id number]) [facility] ([facility]) [address] [place] [address] GFR/1.73 sq M.predicted MDRD (S/P/Bld) [Vol rate/Area] mL/min/{1.73_m2} Normal >60 [facility] Comment on above: Result Comment: Calc ulations of estimated GFR are performed using the 2020 CKD-EPI Study Refit equation without the race variable for the IDMS-Traceable creatinine methods. https://jasn.asnjournals.org/content//ASN.94038988 88 Performed By: #### 2 4323-8 #### KATE STEVENS ([id number]) [facility] ([facility]) [address] [place] [address] 31648 Glucose [Mass/Vol] 89 mg/dL Normal 74-99 [facility] Comment on above: Performed By: #### 2 4323-8 #### KATE STEVENS ([id number]) [facility] ([facility]) [address] [place] [address] 73821 Potassium [Moles/Vol] 4.9 mmol/L Normal 3.5-5.3 [facility] Comment on above: Performed By: #### 2 4323-8 #### KATE STEVENS ([id number]) [facility] ([facility]) [address] [place] [address] 10134 Protein [Mass/Vol] 6.5 g/dL Normal 6.4-8.2 [facility] Comment on above: Performed By: #### 2 4323-8 #### KATE STEVENS ([id number]) [facility] ([facility]) [address] [place] [address] 47736 Sodium [Moles/Vol] 139 mmol/L Normal 136-145 [facility] Comment on above: Performed By: #### 2 4323-8 #### KATE STEVENS ([id number]) [facility] ([facility]) [address] [place] [address] 42830 Urea nitrogen [Mass/Vol] 18 mg/dL Normal 6-23 [facility] Comment on above: Performed By: #### 2 4323-8 #### KATE STEVENS ([id number]) [facility] ([facility]) [address] [place] [address] 99599 Ferritinon 06-10-2023 Ferritin [Mass/Vol] 18 ng/mL Normal 8-150 [facility] Comment on above: Performed By: #### 2 276-4 #### KATE STEVENS ([id number]) [facility] ([facility]) [facility] [place] [address] HbA1c (Bld) [Mass fraction]o n 06-10-2023 Average glucose Estimated from glycated hemoglobin (Bld) [Mass/Vol] 114 mg/dL Normal Not Established [facility] Comment on above: Order Comment: Diagn osis of Diabetes-Adults Non-Diabetic: < or = 5.6% Increased risk for developing diabetes: 5.7-6.4% Diagnostic of diabetes: > or = 6.5% Monitoring of Diabetes Age (y)....................... Therapeutic Goal (%) Adults: >18.........................<7.0 Pediatrics: 13-18...................<7.5 Pediatrics: 7-12....................<8.0 Pediatrics: 0-6..................... 7.5-8.5 [place] [employer]. Diabetes Care 33(S1)Jun 2009 Performed By: #### 4 548-4 #### KATE STEVENS ([id number]) [facility] ([facility]) [facility] [place] [id number] Hemoglobin A1c/Hemoglobin.to evelyn 06-10-2023 HbA1c (Bld) [Mass fraction] 5.6 % Normal see below [facility] Comment on above: Order Comment: Diagn osis of Diabetes-Adults Non-Diabetic: < or = 5.6% Increased risk for developing diabetes: 5.7-6.4% Diagnostic of diabetes: > or = 6.5% Monitoring of Diabetes Age (y)....................... Therapeutic Goal (%) Adults: >18.........................<7.0 Pediatrics: 13-18...................<7.5 Pediatrics: 7-12....................<8.0 Pediatrics: 0-6..................... 7.5-8.5 [place] [employer]. Diabetes Care 33(S1), Jun 2009 Performed By: #### 4 548-4 #### KATE STEVENS ([id number]) [facility] ([facility]) [address] [place] [address] 74953 Iron and Iron binding capaci ty panelon 06-10-2023 Iron [Mass/Vol] 81 ug/dL Normal 35-150 [facility] Comment on above: Performed By: #### 5 0190-8 #### KATE STEVENS ([id number]) [facility] ([facility]) [address] [place] [address] 74823 Iron binding capacity [Mass/Vol] 472 ug/dL High 240-445 [facility] Comment on above: Performed By: #### 5 0190-8 #### KATE STEVENS ([id number]) [facility] ([facility]) [address] [place] [address] 99397 Iron binding capacity.unsaturate d [Mass/Vol] 391 ug/dL High 110-370 [facility] Comment on above: Performed By: #### 5 0190-8 #### KATE STEVENS ([id number]) [facility] ([facility]) [address] [place] [address] 39423 Iron saturation [Mass fraction] 17 % Low 25-45 [facility] Comment on above: Performed By: #### 5 0190-8 #### KATE STEVENS ([id number]) [facility] ([facility]) [address] [place] [address] 35613 Lipid 1996 panelon 01-08-202 4 Cholesterol [Mass/Vol] 170 mg/dL Normal 0-199 [facility] Comment on above: Result Comment: Age Desirable Borderline High High 0-19 Y 0 - 169 170 - 199 >/= 200 20-24 Y 0 - 189 190 - 224 >/= 225 >24 Y 0 - 199 200 - 239 >/= 240 All ranges are based on fasting samples. Specific therapeutic targets will vary based on patient-specific cardiac risk. Pediatric guidelines reference:Pediatrics 2011, 128(S5).Adult guidelines reference: NCEP ATPIII Guidelines,EDELMIRA 2001, 258:2486-97 Venipuncture immediately after or during the administration of Metamizole may lead to falsely low results. Testing should be performed immediately prior to Metamizole dosing. Performed By: #### 2 4331-1 #### KATE STEVENS ([id number]) [facility] ([facility]) [address] [place] [address] 16110 Cholesterol in HDL [Mass/Vol] 74.0 mg/dL Normal [facility] Comment on above: Result Comment: Age Very Low Low Normal High 0-19 Y < 35 < 40 40-45 ---- 20-24 Y ---- < 40 >45 ---- >24 Y ---- < 40 40-60 >60 Performed By: #### 2 4331-1 #### KATE STEVENS ([id number]) [facility] ([facility]) [address] [place] [address] 00510 Cholesterol in LDL [Mass/Vol] 82 mg/dL Normal <=99 [facility] Comment on above: Result Comment: Near Borderline AGE Desirable Optimal High High Very High 0-19 Y 0 - 109 --- 110-129 >/= 130 ---- 20-24 Y 0 - 119 --- 120-159 >/= 160 ---- >24 Y 0 - 99 100-129 130-159 160-189 >/=190 Performed By: #### 2 4331-1 #### KATE STEVENS ([id number]) [facility] ([facility]) [address] [place] [address] 14782 Cholesterol in VLDL [Mass/Vol] 14 mg/dL Normal 0-40 [facility] Comment on above: Performed By: #### 2 4331-1 #### KATE STEVENS ([id number]) [facility] ([facility]) [address] [place] [address] 95483 CHOLESTEROL/HDL RATIO 2.3 Normal [facility] Comment on above: Result Comment: Ref Values Desirable < 3.4 High Risk > 5.0 Performed By: #### 2 4331-1 #### KATE STEVENS ([id number]) [facility] ([facility]) [address] [place] [address] 18883 NON HDL CHOLESTEROL 96 mg/dL Normal 0-149 [facility] Comment on above: Result Comment: Age Desirable Borderline High High Very High 0-19 Y 0 - 119 120 - 144 >/= 145 >/= 160 20-24 Y 0 - 149 150 - 189 >/= 190 ---- >24 Y 30 mg/dL above LDL Cholesterol goal Performed By: #### 2 4331-1 #### KATE STEVENS ([id number]) [facility] ([facility]) [address] [place] [address] 40781 Triglyceride [Mass/Vol] 70 mg/dL Normal 0-149 [facility] Comment on above: Result Comment: Age Desirable Borderline High High Very High 0 D-90 D 19 - 174 ---- ---- ---- 91 D- 9 Y 0 - 74 75 - 99 >/= 100 ---- 10-19 Y 0 - 89 90 - 129 >/= 130 ---- 20-24 Y 0 - 114 115 - 149 >/= 150 ---- >24 Y 0 - 149 150 - 199 200- 499 >/= 500 Venipuncture immediately after or during the administration of Metamizole may lead to falsely low results. Testing should be performed immediately prior to Metamizole dosing. Performed By: #### 2 4331-1 #### KATE STEVENS ([id number]) [facility] ([facility]) [address] [place] [address] 21756 TSH WITH REFLEX TO FREE T4 I F ABNORMALon 06-10-2023 TSH Qn 2.28 m[IU]/L Normal 0.44-3.98 [facility] Comment on above: Order Comment: TSH t esting is performed using different testing methodology at [facility] than at other [facility]. Direct result comparisons should only be made within the same method. Performed By: #### T ANGELS #### LOVE RODNEY ([id number]) [facility] ([facility]) [address] [place] [phone] DIGITAL MAMM SCREENING W/ TO Horne 01-17-2023 DIGITAL MAMM SCREENING W/ JUAN Patient Name: DESIREE THORNTON STUDY: Digital mammography screening with juan; 01/17/2023 9:07 am ACCESSION NUMBER(S): [id number] ORDERING CLINICIAN: KEVIN PICKETT INDICATION: Screening. COMPARISON: Comparison is made to prior digital mammograms dated 11/25/2019 FINDINGS: CC and MLO 2D digital mammograms and digital breast tomosynthesis images were obtained of the bilateral breasts. 3-D volume images were reconstructed in 4 views at an independent workstation as 1 mm slices through the breasts in both the CC and MLO projections. There are areas of scattered fibroglandular tissue. No discrete mass or focal asymmetry is identified. No suspicious microcalcifications or foci of architectural distortion are seen. There has been no significant change. This study was interpreted with CAD. IMPRESSION: No mammographic evidence of malignancy. BI-RADS CATEGORY: Category: 1 - Negative. Recommendation: 1 Year Screening. Electronically signed by: XAVI CHAVARRIA MD [facility] SPINE, LUMBOSACRAL MIN 4 VIE WSon 10-03-2022 SPINE, LUMBOSACRAL MIN 4 VIEWS Patient Name: DESIREE THORNTON STUDY: SPINE, LUMBOSACRAL MIN 4 VIEWS INDICATION: SPONDYLOSIS W/O MYELOPATHY OR RADICULOPATHY, LUMBAR REGION. COMPARISON: June 27, 2021 ACCESSION NUMBER(S): [id number] ORDERING CLINICIAN: CARLOS DORMAN FINDINGS: Mild lumbar degenerative changes with facet arthrosis diffusely as well as disc disease. More focally advanced disc disease at L5-S1, similar to prior study. No evidence of fracture or lesion. IMPRESSION: Mild lumbar degenerative changes with facet arthrosis diffusely as well as disc disease. More focally advanced disc disease at L5-S1, similar to prior study. Electronically signed by: SUKH KENDALL MD [facility] Post Op (General Surgery)on 05-11-2021 Post Op (General Surgery) Diagnoses/Problems History of Symptomatic cholelithiasis (574.20) (K80.20) History of Cholecystectomy laparoscopic 04/25/[address] Zhong for symptomatic cholelithiasis. Provider Impressions Ms. Thornton is a 55-year-old female s/p laparoscopic cholecystectomy with cholangiogram on 04/25/2021 for symptomatic cholelithiasis. She is doing well aside from some loose bowel movements depending on what she eats. We discussed that this is not totally unexpected and will likely improve over time with dietary changes and as her body adjusts. However, if diarrhea were to persist a few months from now to give us a call as a small minority of patients do occasionally need medication for this. Her preoperative abdominal pain is now resolved. She may resume all regular activities. She will follow up on an as-needed basis. Chief Complaint s/p laparoscopic cholecystectomy cholangiogram History of Present IllnessMs. Thornton is a 55-year-old female s/p laparoscopic cholecystectomy with cholangiogram on 04/25/2021. She is doing well. She has some loose bowel movements depending on what she eats, but is otherwise doing well. She denies any fever, sweats, chills, redness or drainage from incisions. She denies any yellowing of the skin or eyes or dark-colored urine. She is happy that she has more of a bellybutton than she did previously. The pain that she was having in her right upper quadrant preoperatively is now resolved. 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 Initially weighed about 250 pounds, lost 120 pounds. History of Breast reduction History of Cholecystectomy laparoscopic 04/25/[address] Zhong for symptomatic cholelithiasis. History of Lumbar discectomy l5-s1 History of Shoulder arthroscopy History of Total hysterectomy abdominal cervical cancer insitu-left ovary remains History of Tubal ligation History of Umbilical hernia repair Family History Family history of hepatic cirrhosis (V18.59) (Z83.79) Family history of diabetes mellitus (V18.0) (Z83.3) Social History Denies alcohol consumption (V49.89) (Z78.9) Former smoker (V15.82) (Z87.891) Allergies Eggs Rash; Recorded By: Lamar Briseno; 11/19/2019 11:55:44 AM Peaches Rash; Recorded By: Lamar Briseno; 11/19/2019 11:55:44 AM Bee sting Recorded By: Ines Sahu; 02/23/2021 11:19:17 AM Spiders Recorded By: Ines Sahu; 02/23/2021 11:19:17 AM Current Meds Medication NameInstruction Albuterol 90 MCG/ACT AERS EPINEPHrine 0.3 MG/0.3ML SOLN Flovent 110 MCG/ACT AERO Hysingla ER 20 MG Oral Tablet ER 24 Hour Abuse-Deterrent Physical Exam No physical exam performed as this was a virtual telephone follow-up appointment Results/Data Surgical pathology: Gallbladder with chronic cholecystitis and cholesterolosis and cholelithiasis, 1 reactive lymph node Signatures Electronically signed by : Lan Zhong MD; May 11 2021 10:28AM EST (Author) Normal [email or web address] Coronavirus 2019 RNA by PCR, Screening Asymptomticon 04-22-2021 Coronavirus 2019 RNA by PCR, Screening Asymptomtic Not detected Normal See Below -[facility] Work Phone: Comment on above: SOURCE: Nasal, Nasop haryngealReference Range: Not Detected.This assay is designed to detect the N, ORF1ab and/or S genes of SARS-CoV-2 via nucleic acid amplification. A Negative (NOT DETECTED) result does not preclude 2019-nCoV infection since the adequacy of sample collection and/or low viral burden may result in presence of viral nucleic acids below the clinical sensitivity of this test method. Negative (NOT DETECTED) result should not be used as the sole basis for treatment or other patient management decisions. Rather negative results should be combined with clinical observations, patient history, and epidemiological information to make patient management decisions.Fact sheet for providers: https://www.fda.gov/media/978703/downloadFact sheet for patients: https://www.fda.gov/media/660666/downloadThis test has received FDA Emergency Use Authorization (EUA) and has been verified by [facility] ([facility]). This test is only authorized for the duration of time that circumstances exist to justify the authorization of the emergency use of in vitro diagnostic tests for the detection of SARS-CoV-2 virus and/or diagnosis of COVID-19 infection under section 564(b)(1) of the Act, 21 U.S.C. 360bbb-3(b)(1), unless the authorization is terminated or revoked sooner. [facility] is certified under CLIA-88 as qualified to perform high complexity testing. Testing is performed in the [facility] laboratories located at [address] [place] [address]. Hepatic Function Panelon Albumin BCP dye [Mass/Vol] 4.1 g/dL 3.4 - 5.0 [facility] Work Phone: ALP [Catalytic activity/Vol] 78 U/L 33 - 110 [facility] Work Phone: ALT With P-5'-P [Catalytic activity/Vol] 16 U/L 7 - 45 [facility] Work Phone: Comment on above: Patients treated wit h Sulfasalazine may generate falsely decreased results for ALT. AST With P-5'-P [Catalytic activity/Vol] 16 U/L 9 - 39 [facility] Work Phone: Bilirubin [Mass/Vol] 0.5 mg/dL 0.0 - 1.2 [facility] Work Phone: Bilirubin.direct [Mass/Vol] 0.1 mg/dL 0.0 - 0.3 [facility] Work Phone: Protein [Mass/Vol] 7.0 g/dL 6.4 - 8.2 [facility] Work Phone: No Panel Informationon 04-12 [facility] Work Phone: Coronavirus 2019 RNA by PCR, Screening Asymptomticon 04-10-2021 Coronavirus 2019 RNA by PCR, Screening Asymptomtic Not detected Normal See Below [facility] Work Phone: Comment on above: SOURCE: Nasal, Nasop haryngealReference Range: Not Detected.This assay is designed to detect the N, ORF1ab and/or S genes of SARS-CoV-2 via nucleic acid amplification. A Negative (NOT DETECTED) result does not preclude 2019-nCoV infection since the adequacy of sample collection and/or low viral burden may result in presence of viral nucleic acids below the clinical sensitivity of this test method. Negative (NOT DETECTED) result should not be used as the sole basis for treatment or other patient management decisions. Rather negative results should be combined with clinical observations, patient history, and epidemiological information to make patient management decisions.Fact sheet for providers: https://www.fda.gov/media/549150/downloadFact sheet for patients: https://www.fda.gov/media/625437/downloadThis test has received FDA Emergency Use Authorization (EUA) and has been verified by [facility] ([facility]). This test is only authorized for the duration of time that circumstances exist to justify the authorization of the emergency use of in vitro diagnostic tests for the detection of SARS-CoV-2 virus and/or diagnosis of COVID-19 infection under section 564(b)(1) of the Act, 21 U.S.C. 360bbb-3(b)(1), unless the authorization is terminated or revoked sooner. [facility] is certified under CLIA-88 as qualified to perform high complexity testing. Testing is performed in the [facility] laboratories located at [address] [place] [address]. Initial Visit (General Surge ry)on 02-23-2021 Initial Visit (General Surgery) Diagnoses/Problems Symptomatic cholelithiasis (574.20) (K80.20) Mass of parotid gland (527.8) (K11.8) 2 cm solid mass of right parotid gland seen on ultrasound February 2021 Provider Impressions Ms. Thornton is a 55yo female with symptomatic cholelithiasis. Risks, benefits and alternatives of laparoscopic cholecystectomy with cholangiogram were discussed with the patient. This included risk of bleeding, infection, viscous injury, conversion to an open procedure, bile leakage or bile duct injury, post-cholecystectomy diarrhea,and possible need for subsequent endoscopic or surgical interventions. The patient was agreeable to proceed with surgery. She will need LFTs checked. I will also plan to perform intraoperative cholangiogram given the history of a dentist commenting on scleral icterus about a month ago. She will need overnight observation due to her history of sleep apnea. We completed consent forms today, however I will not put her on my schedule until her parotid gland is further evaluated. Her swallowing seems to be a bigger immediate issue and work-up and treatment by Dr. Alvarado should take precedent over her cholecystectomy. 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 She will call us when ready to schedule cholecystectomy, likely in April. Chief Complaint Abdominal pain History of Present IllnessMs. Thornton is a 55yo female seen at the request of Dr. Pickett for evaluation of gallbladder disease. She has been having pain underneath the right rib cage for quite some time. The pain is now constant, but intermittently worsens with food. This is particularly worse after she has heavy whipping cream in her coffee and broth. Of note, she has pain with swallowing and has placed herself on a liquid diet. The pain is on the right side of her throat/neck. She recently underwent an ultrasound which shows a 2 cm mass of the right parotid gland and she is scheduled to see Dr. Alvarado for this. In regards to the right upper quadrant abdominal pain, she had a CT scan as well as a right upper quadrant ultrasound that showed multiple small gallstones without signs of acute inflammation. She had no biliary dilation, CBD 5 mm. The most recent LFTs that I have available for review are from July 2019. Alk phos was mildly elevated, but bilirubin was normal at 0.4. On review of systems, she denies any yellowing of the skin or dark-colored urine, although she does report that about a month ago her dentist commented on the whites of her eyes looking yellow. She denies any fever, sweats or chills. Her prior abdominal surgery includes tubal ligation, hysterectomy,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 (restless legs s yndrome) (Primary Dx); Recurrent major depressive disorder, in partial remission ([facility]); Essential (primary) hypertension; ANTONIO (obstructive sleep apnea); Encounter for screening mammogram for malignant neoplasm of breast; Medicare annual wellness visit, subsequent Start: 08-02-2023 End: 08-02-2023 Office outpatient visit 15 minutes Wendy Rodriguez BULB GRADER-[employer] Work Phone: [facility] Comment on above: Pain in both wrists (Primary Dx); Carpal tunnel syndrome of right wrist; Median nerve dysfunction, left; [facility] arthritis Start: 07-31-2023 Non-patient / Non-visit MAHAMED RODRIGUEZ Work Phone: [facility] Start: 07-31-2023 End: 07-31-2023 ambulatory WENDY RODRIGUEZ Work Phone: Work Phone: Start: 07-31-2023 End: 07-31-2023 Patient encounter procedure WENDY RODRIGUEZ Work Phone: -Pulmonary Services/Neurology Work Phone: Start: 07-29-2023 End: 07-29-2023 Subsequent hospital visit by physician Darnell X-Ray 1 [facility] Comment on above: Unilateral primary o steoarthritis, right knee Bilateral knee pain Start: 07-01-2023 End: 07-01-2023 Office outpatient visit 25 minutes Wendy Rodriguez BULB GRADER-DIRECTOR OF INSTRUCTIONAL TECHNOLOGY Work Phone: [facility] Comment on above: Carpal tunnel syndro me of right wrist (Primary Dx); Pain in both wrists; Median nerve dysfunction, left Start: 07-01-2023 End: 07-01-2023 Subsequent hospital visit by physician Darnell [id number] X-Ray [facility] Comment on above: Arrived Start: 06-17-2023 End: 06-17-2023 Office outpatient visit 25 minutes Wendy Rodriguez BULB GRADER-DIRECTOR OF INSTRUCTIONAL TECHNOLOGY Work Phone: 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 Kevin Pickett Facility:[id number] Start: 10-03-[address] Carlos Dorman [facility] ity:[id number] Start: 04-25-2021 [facility], Provider: Lan Zhong, Status: Pen, Time: 7:30 AM Kevin Pickett Work Phone: [facility] Work Phone: Start: 04-24-2021 Chart Update Kevin caban Work Phone: [facility] Work Phone: Start: 04-18-2021 AUDIT Kevin caban Work Phone: [facility] Work Phone: Start: 05-22-2017 End: 05-23-2017 Ambulatory Vanessa Rojas Facility:[facility] Start: 05-21-2017 End: 05-22-2017 Ambulatory Carlos Dorman Facility:[facility] Start: 02-20-2017 End: 02-21-2017 Ambulatory Ruth Samaniego Facility:[facility] Procedures Date Procedure Procedure Detail Performing Clinician Start: 10-21-2024 Plain X-ray abdomen Smiley Noyola STOCK TRANSFER CLERK-C Work Phone: Start: 09-14-2024 Ecg routine ecg w/le ast 12 lds trcg only w/o i&r Angela Baltazar PA-C Work Phone: Start: 09-14-2024 Ct angiography chest w/contrast/noncontrast Angela Baltazar PA-C Work Phone: Start: 09-14-2024 End: 09-14-2024 Comprehensive metabolic panel Angela Baltazar PA-C Work Phone: Start: 09-14-2024 Troponin I.cardiac p omari - Serum or Plasma by High sensitivity method Angela Baltazar PA-C Work Phone: Start: 09-14-2024 Radex ribs uni w/pos teroant ch minimum 3 views Angela Baltazar PA-C Work Phone: Start: 06-19-2024 Mri spinal canal lum bar w/o & w/contr matrl Carlos Dorman MD Work Phone: Start: 02-14-2024 Lipid 1996 panel - S merry or Plasma Darnell [facility] Start: 01-20-2024 End: 01-20-2024 Screening digital breast tomosynthesis bi Lan Dawn DO Work Phone: Start: 10-11-2023 HOME SLEEP APNEA SHABBIR T (HSAT) CHLOE GALAVIZ Start: 07-29-2023 Radiologic examinati on knee 3 views Carlos Dorman MD Work Phone: Start: 07-01-2023 Radex wrist complete minimum 3 views Wendy Rodriguez BULB GRADER-DIRECTOR OF INSTRUCTIONAL TECHNOLOGY Work Phone: Start: 06-10-2023 CBC W Auto Different ial panel - Blood LAN OBERHAUSER Start: 06-10-2023 Comprehensive metabo lic 2000 panel - Serum or Plasma LAN OBSHELDONHAUSSHELDON Start: 06-10-2023 Cyanocobalamin vitamin b-12 LAN EMILIE Start: 06-10-2023 Ferritin [Mass/volum e] in Serum or Plasma LAN EMILIE Start: 06-10-2023 Hemoglobin A1c/Hemoglobin.total in Blood LAN EMILIE Start: 06-10-2023 IRON AND TIBC LAN OBE RHAUSER Start: 06-10-2023 Lipid panel LAN ANI DEDE Start: 06-10-2023 TSH WITH REFLEX TO F REE T4 IF ABNORMAL LAN GUILLERMOERHAUSER Start: 06-10-2023 VITAMIN D 25-HYDROXY,TOTAL LAN GUILLERMOERHAUSER Start: 06-10-2023 Lipid 1996 panel - S merry or Plasma Wendy Rodriguez BULB GRADER-DIRECTOR OF INSTRUCTIONAL TECHNOLOGY Work Phone: Start: 01-17-2023 Mammography Lan Ani dede DO Work Phone: Start: 12-23-2019 Colonoscopy Lan Ani dede DO Work Phone: Start: 07-14-2019 Lipid 1996 panel - S merry or Plasma Lan Oberhauser DO Work Phone: Start: 06-03-2012 Excision of lumbar intervertebral disc Kevin Pickett Work Phone: Comment on above: l5-s1; Start: 06-03-1999 Total abdominal hysterectomy Kevin Pickett Work Phone: Comment on above: cervical cancer insi tu-left ovary remains; Abdominoplasty Kevin page Work Phone: Arthroscopy of shoulder Donavon Pickett Work Phone: Bariatric operative procedure Kevin Pickett Work Phone: Comment on above: Sleeve gastrectomy i n 2008. Initially weighed about 250 pounds, lost 120 pounds.; Ligation of fallopian tube Jeanne Pickett Work Phone: Reduction mammoplasty Kevin Pickett Work Phone: Repair of umbilical hernia Jeanne Pickett Work Phone: Plan of Treatment Date Care Activity Detail Author Start: 12-22-2029 Screening for malign ant neoplasm of colon [facility] Start: 02-13-2029 Lipid panel Lipid Panel [facility] Start: 06-10-2028 Lipid panel Lipid Panel [facility] Start: 09-15-2027 Diabetes mellitus screening Diabetes Screening [facility] Start: 02-13-2027 Diabetes mellitus screening Diabetes Screening [facility] Start: 06-10-2026 Diabetes mellitus screening Diabetes Screening [facility] Start: 2026 RSV patient s and/or patients aged 60+ years (1 - 1-dose 60+ series) RSV patients and/or patients aged 60+ years (1 - 1-dose 60+ series) [facility] Start: 12-10-2025 Medicare Annual Wellness Visit Medicare Annual Wellness Visit (AWV) [facility] Start: 06-23-2025 End: 06-23-2025 Patient encounter procedure 06/23/2025 8:20 AM EST Office Visit [address] [place] [address] Chloe Galaviz, BULB GRADER-DIRECTOR OF INSTRUCTIONAL TECHNOLOGY [address] [place] [address] [facility] Start: 02-11-2025 End: 02-11-2025 Patient encounter procedure 02/11/2025 2:30 PM EDT Office Visit [facility] Building [address] [facility] 1[address] [place] [phone] Sosa Silva MD [address] [facility] [address] [place] [address] [facility] Start: 02-01-2025 Influenza vaccination [facility] Start: 01-27-2025 End: 01-27-2025 Patient encounter procedure 01/27/2025 9:15 AM EDT Appointment [facility] [address] [place] [phone] [facility] Start: 01-19-2025 End: 02-09-2026 DBT Breast - bilateral BI mammo bilateral screening tomosynthesis Imaging Routine Encounter for screening mammogram for malignant neoplasm of breast Expected: 01/19/2025, Expires: 02/09/2026 [facility] Service Area Work Phone: Comment on above: Expected: 01/19/2025 , Expires: 02/09/2026 Start: 01-19-2025 Screening for malign ant neoplasm of breast Mammogram [facility] Start: 01-06-2025 End: 01-06-2025 Patient encounter procedure 01/06/2025 9:00 AM EDT Office Visit [facility] [address] [place] [phone] Dorita Lewis, DIRECTOR OF INSTRUCTIONAL TECHNOLOGY [address] [place] [phone] [facility] Start: 11-25-2024 End: 11-25-2024 Patient encounter procedure 11/25/2024 8:20 AM EDT Office Visit [address] [place] [address] Chloe Galaviz, BULB GRADER-DIRECTOR OF INSTRUCTIONAL TECHNOLOGY [address] [facility] [address] [place] [address] [facility] Start: 09-30-2024 End: 09-30-2024 Patient encounter procedure 09/30/2024 9:00 AM EDT Office Visit [address] [place] [address] Chloe Galaviz, BULB GRADER-DIRECTOR OF INSTRUCTIONAL TECHNOLOGY [address] [address] [facility] Start: 09-16-2024 Medicare Annual Wellness Visit Medicare Annual Wellness Visit (AWV) [facility] Start: 09-15-2024 Medicare Wellness Visit Medicare Wel lness Visit [facility] Start: 07-14-2024 Lipid panel Lipid Panel [facility] Start: 06-22-2024 End: 06-22-2024 Patient encounter procedure 06/22/2024 11:40 AM EST Office Visit [facility] [address] [facility] [address] [place] [phone] Lan Dawn, DO [address] [facility] [place] [address] [facility] Start: 03-23-2024 End: 03-23-2024 Patient encounter procedure 03/23/2024 8:40 AM EDT Office Visit [facility] [address] [facility] [address] [place] [address] Lan Dawn, DO [address] [facility] [address] [facility] Start: 02-11-2024 End: 02-10-2025 Comprehensive metabolic 2000 panel - Serum or Plasma Comprehensive Metabolic Panel Lab Routine Weight gain Expected: 02/11/2024 (Approximate), Expires: 02/10/2025 [facility] Work Phone: Comment on above: Expected: 02/11/2024 (Approximate), Expires: 02/10/2025 Start: 02-11-2024 End: 02-10-2025 Hemoglobin A1c/Hemoglobin.total in Blood Hemoglobin A1C Lab Routine Weight gain Elevated blood sugar Expected: 02/11/2024 (Approximate), Expires: 02/10/2025 [facility] Service Area Work Phone: Comment on above: Expected: 02/11/2024 (Approximate), Expires: 02/10/2025 Start: 02-11-2024 End: 02-10-2025 Lipid 1996 panel - Serum or Plasma Lipid Panel Lab Routine Weight gain Encounter for lipid screening for cardiovascular disease Expected: 02/11/2024 (Approximate), Expires: 02/10/2025 [facility] Work Phone: Comment on above: Expected: 02/11/2024 (Approximate), Expires: 02/10/2025 Start: 02-11-2024 End: 02-10-2025 TSH with reflex to Free T4 if abnormal TSH with reflex to Free T4 if abnormal Lab Routine Weight gain Expected: 02/11/2024 (Approximate), Expires: 02/10/2025 [facility] Work Phone: Comment on above: Expected: 02/11/2024 (Approximate), Expires: 02/10/2025 Start: 02-11-2024 End: 02-11-2024 Patient encounter procedure 02/11/2024 8:40 AM EDT Office Visit [facility] [address] [place] [id number] Lan Dawn DO [address] [facility] [place] [address] [facility] Start: 02-02-2024 COVID-19 Vaccine ( season) COVID-19 Vaccine ( season) [facility] Start: 02-02-2024 COVID-19 Vaccine ( season) COVID-19 Vaccine () [facility] Start: 02-02-2024 COVID-19 Vaccine ( season) COVID-19 Vaccine ( season) [facility] Start: 02-02-2024 Influenza vaccination [facility] Start: 01-18-2024 Screening for malign ant neoplasm of breast Mammogram [facility] Start: 09-16-2023 End: 11-15-2024 DBT Breast - bilateral BI mammo bilateral screening tomosynthesis Imaging Routine Encounter for screening mammogram for malignant neoplasm of breast Expected: 09/16/2023, Expires: 11/15/2024 [facility] Work Phone: Comment on above: Expected: 09/16/2023 , Expires: 11/15/2024 Start: 09-16-2023 End: 09-16-2023 Patient encounter procedure 09/16/2023 9:40 AM EDT Office Visit [facility] [address] [address] [place] [id number] Lan Dawn DO [address] [place] [address] [facility] Start: 07-01-2023 End: 07-01-2024 EMG & nerve conduction EMG & nerve conduction Neurology Routine Pain in both wrists Carpal tunnel syndrome of right wrist Median nerve dysfunction, left Expected: 07/01/2023 (Approximate), Expires: 07/01/2024 [facility] Work Phone: Comment on above: Expected: 07/01/2023 (Approximate), Expires: 07/01/2024 Start: 07-01-2023 End: 07-01-2023 Patient encounter procedure 07/01/2023 9:45 AM EST Office Visit [facility] [address] [place] [id number] Wendy Rodriguez, BULB GRADER-DIRECTOR OF INSTRUCTIONAL TECHNOLOGY [address] [facility], [address] [place] [id number] 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 Vitamin D deficiency Expected: 06/07/2023 (Approximate), Expires: 06/07/2024 [facility] Work Phone: Comment on above: Expected: 06/07/2023 (Approximate), Expires: 06/07/2024 Start: 06-07-2023 End: 06-07-2024 CBC W Auto Differential panel - Blood CBC and Auto Differential Lab Routine RLS (restless legs syndrome) Expected: 06/07/2023 (Approximate), Expires: 06/07/2024 [facility] Work Phone: Comment on above: Expected: 06/07/2023 (Approximate), Expires: 06/07/2024 Start: 06-07-2023 End: 06-07-2024 Cobalamin (Vitamin B12) [Mass/volume] in Serum or Plasma Vitamin B12 Lab Routine RLS (restless legs syndrome) Expected: 06/07/2023 (Approximate), Expires: 06/07/2024 [facility] Service [facility] Work Phone: Comment on above: Expected: 06/07/2023 (Approximate), Expires: 06/07/2024 Start: 06-07-2023 End: 06-07-2024 Comprehensive metabolic 2000 panel - Serum or Plasma Comprehensive Metabolic Panel Lab Routine RLS (restless legs syndrome) Expected: 06/07/2023 (Approximate), Expires: 06/07/2024 [facility] Work Phone: Comment on above: Expected: 06/07/2023 (Approximate), Expires: 06/07/2024 Start: 06-07-2023 End: 06-07-2024 Ferritin [Mass/volume] in Serum or Plasma Ferritin Lab Routine RLS (restless legs syndrome) 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 Expected: 06/07/2023 (Approximate), Expires: 06/07/2024 [facility] Work Phone: Comment on above: Expected: 06/07/2023 (Approximate), Expires: 06/07/2024 Start: 06-07-2023 End: 06-07-2024 Hemoglobin A1c/Hemoglobin.total in Blood Hemoglobin A1C Lab Routine RLS (restless legs syndrome) Elevated blood sugar Expected: 06/07/2023 (Approximate), Expires: 06/07/2024 [facility] Work Phone: Comment on above: Expected: 06/07/2023 (Approximate), Expires: 06/07/2024 Start: 06-07-2023 End: 06-07-2024 Iron and Iron binding capacity panel - Serum or Plasma Iron and TIBC Lab Routine RLS (restless legs syndrome) 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 Expected: 06/07/2023 (Approximate), Expires: 06/07/2024 [facility] Work Phone: Comment on above: Expected: 06/07/2023 (Approximate), Expires: 06/07/2024 Start: 06-07-2023 End: 06-07-2024 Lipid 1996 panel - Serum or Plasma Lipid Panel Lab Routine Screening for lipid disorders Expected: 06/07/2023 (Approximate), Expires: 06/07/2024 [facility] Work Phone: Comment on above: Expected: 06/07/2023 (Approximate), Expires: 06/07/2024 Start: 06-07-2023 End: 06-07-2024 TSH with reflex to Free T4 if abnormal TSH with reflex to Free T4 if abnormal Lab Routine RLS (restless legs syndrome) 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: Lan Zh[facility], Status: Pen, Time: 7:30 AM [facility]: Lan Zhong, Status: Pen, Time: 7:30 AM [facility] Work Phone: Start: 04-13-2021 COVID-19 Vaccine (3 - Pfizer series) COVID-19 Vaccine (3 - Pfizer series) [facility] Start: 2016 Pneumococcal Vaccine : Age 50+ (1 of 1 - PCV) Pneumococcal Vaccine: Age 50+ (1 of 1 - PCV) [facility] Start: 2016 Screening for malign ant neoplasm of colon Flexible sigmoidoscopy [facility] Start: 1996 Screening for malign ant neoplasm of cervix [facility] Start: 09-03-1995 Hepatitis B Vaccines (3 of 3 - 19+ 3-dose series) Hepatitis B Vaccines (3 of 3 - 19+ 3-dose series) [facility] Start: 1988 DTaP/Tdap/Td Vaccine s (1 - Tdap) DTaP/Tdap/Td Vaccines (1 - Tdap) [facility] Start: 1987 Screening for malign ant neoplasm of cervix [facility] Start: 1985 Pneumococcal vaccination Pneumococcal Vaccine (1 of 2 - PCV) [facility] Start: 1984 Hepatitis C screening Hepatitis C [facility] Start: 1981 HIV screening HIV Screening [facility] Start: 1978 Depression screening using PHQ-9 (Patient Health Questionnaire 9) score Depression Screening/Follow-Up (PHQ-2/9) [facility] Start: 1972 Pneumococcal Vaccine : Pediatrics (0 to 5 Years) and At-Risk Patients (6 to 64 Years) (1 of 2 - PCV) Pneumococcal Vaccine: Pediatrics (0 to 5 Years) and At-Risk Patients (6 to 64 Years) (1 of 2 - PCV) [facility] Start: 1967 MMR Vaccines (1 of 1 - Standard series) MMR Vaccines (1 of 1 - Standard series) [facility] Start: 1966 HIV screening HIV Screening [facility] Start: 1966 Medicare Annual Wellness Visit Medicare Annual Wellness Visit (AWV) [facility] Start: 1966 Screening for malign ant neoplasm of colon [facility] Start: 1966 Tetanus vaccination Tetanus: Every 1 0yrs [facility] End: 12-01-2025 B12/Folate B12/Folate Lab Routine Schizoaffective disorder, bipolar type (HCC) 1 Occurrences starting 12/01/2024 until 12/01/2025 [facility] Comment on above: 1 Occurrences starti ng 12/01/2024 until 12/01/2025 ECG 12 Lead ECG 12 Lead ECG STAT 09/14/2024 2:58 PM EDT [facility] Work Phone: End: 09-14-2024 Incentive spirometry Instruct Incentive spirometry Instruct Respiratory Care Routine Once for 1 Occurrences starting 09/14/2024 until 09/14/2024 [facility] Work Phone: Comment on above: Once for 1 Occurrenc es starting 09/14/2024 until 09/14/2024 End: 09-14-2024 Pulse oximetry, continuous Pulse oximetry, continuous Respiratory Care STAT Continuous until discontinued starting 09/14/2024 [facility] Service [facility] Work Phone: Comment on above: Continuous until dis continued starting 09/14/2024 End: 12-01-2025 Vitamin D, 25-hydroxy measurement Vitamin D, Total, 25-OH Lab Routine Vitamin D deficiency 1 Occurrences starting 12/01/2024 until 12/01/2025 [facility] Work Phone: Comment on above: 1 Occurrences starti ng 12/01/2024 until 12/01/2025 XR Wrist - right 3 Views XR wrist right 3+ views Imaging Routine Right wrist pain 07/01/2023 8:18 AM EST [facility] Service Area Work Phone: Immunizations Immunization Date Immunization Notes Care Provider Saray fuller 01-12-2020 zoster vaccine recombinant Chloe Galaviz BULB GRADER-DIRECTOR OF INSTRUCTIONAL TECHNOLOGY Work Phone: [facility] Work Phone: 11-10-2019 zoster vaccine recombinant Chloe Galaviz BULB GRADER-DIRECTOR OF INSTRUCTIONAL TECHNOLOGY Work Phone: [facility] Work Phone: 07-09-1995 hepatitis B vaccine, adult dosage Chloe Galaviz BULB GRADER-DIRECTOR OF INSTRUCTIONAL TECHNOLOGY Work Phone: [facility] Work Phone: 02-08-1995 hepatitis B vaccine, adult dosage Chloe Galaviz BULB GRADER-DIRECTOR OF INSTRUCTIONAL TECHNOLOGY Work Phone: [facility] Work Phone: Payers Date Payer Category Payer Self-pay 2023 Dual Eligibility Medicare/Medicaid Organization [id number] 2023 Medicare Managed Car e (unspecified) [facility] (H[facility] SNP) [id number] 2023 Private Health Insurance [facility] DUAL COM[facility]TE [facility] DUAL COM[facility] [id number] 2023-Present [address] [place] [id number] 2023 Unknown [id number] 2017 Medicare 2015 Medicaid [id number] 2015 Medicaid [id number] 2009 Medicare [id number] 1966 Unknown [id number] [id number] .2.1069 1966 Unknown [id number] [id number] .2.1069 1966 Unknown [id number] 2.16.840.1.849122.3.579 .2.1245 1966 Unknown [id number] 2.16.840.1.765087.3.579 .2.1245 1966 Unknown [id number] 2.16.840.1.231693.3.579 .2.1243 1966 Unknown [id number] 2.16.840.1.420025.3.579 .2.1243 1966 Unknown [id number] 2.16.840.1.569314.3.579 .2.1243 1966 Unknown [id number] 2.16.840.1.138832.3.579 .2.1243 1966 Unknown [id number] 2.16.840.1.203903.3.579 .2.903 1966 Unknown [id number] 2.16.840.1.485257.3.579 .2.1244 1966 Unknown [id number] 2.16.840.1.285945.3.579 .2.1244 1966 Unknown [id number] 2.16.840.1.984922.3.579 .2.1244 1966 Unknown [id number] 2.16.840.1.761683.3.579 .2.1244 Unknown Unknown [id number] 2.16.840.1.555038.3.579 .2.462 Unknown [id number] [id number] .2.462 Unknown [id number] [id number] .2.462 Social History Date Type Detail Facility Start: 06-07-2023 End: 09-30-2024 Former smoker Former smoker [facility] Work Phone: Start: 06-07-2023 End: 12-28-2024 Tobacco smoking status [facility] Ex-smoker [facility] Work Phone: History of tobacco use Current smoker [facility] Work Phone: History of tobacco use Cigarette Smoker [facility] Work Phone: Start: 06-07-2023 End: 02-11-2024 Tobacco use and exposure Smokeless tobacco non-user [facility] Work Phone: Start: 06-07-2023 End: 12-09-2024 Alcohol intake Ex-drinker (finding) [facility] Work Phone: Start: 06-07-2023 End: 09-30-2024 Tobacco use panel [facility] Work Phone: Start: 1965 Sex Assigned At Not on file [facility] Work Phone: Start: 05-28-2023 End: 09-30-2024 Exposure to SARS-CoV-2 (event) Not sure [facility] Start: 1965 Sex Assigned At Female [facility] Work Phone: Start: 07-14-2015 [facility] Start: 12-01-2024 Alcoholic beverage intake Current non-drinker of alcohol (finding) [facility] Adult Depression Screening Assessment 24 [facility] Medical Equipment Procedure Code Equipment Code Equipment Original Text Equipment Identifier Dates Endo, Clip, 5mm, M/L Case [id number] Start: 04-25-2021 Comment on above: Description: Convert ed from [facility] Acute. Please see archived information for full log information. Functional Status Date Assessment Result Facility 12-09-2024 Patient Health [facility] ionnaire 2 item (PHQ-2) [Reported] [facility] Work Phone: 09-30-2024 [facility] suicide s everity rating scale screener - recent [C-SSRS] [facility] Work Phone: 09-30-2024 Patient Health [facility] ionnaire 2 item (PHQ-2) [Reported] [facility] Work Phone: 09-30-2024 PHQ-9 quick depressi on assessment panel [Reported.PHQ] [facility] Work Phone: [facility] Work Phone: Clinical Notes 06-07-2023 to 01-01-2025 Note Date & Type Note Facility 01-01-2025 Evaluation note Diagnosis Onset Date Resolution Constipation acute January 01, 2025 1:28pm Kidney stones acute January 01, 2025 1:28pm Mixed incontinence acute January 01, 2025 1:28pm Nocturia acute January 01 1:28pm Overactive bladder acute January 01, 2025 1:28pm Hypertension chronic January 01, 2025 1:28pm [facility] Work Phone: 1(702) 714-773607-09-2025 Evaluation + Plan note* Assessment & Plan Note - LEN Musa - 12/09/2024 10:40 AM EDTAssociated Problem(s): RLS (restless legs syndrome) Increase pramipexole to 0.5 mg nightly Orders: pramipexole (Mirapex) 0.5 mg tablet; Take 1 tablet (0.5 mg) by mouth once daily at bedtime. [facility] Work Phone: 1(792) 471-540707-09-2025 Evaluation + Plan note* Assessment & Plan Note - LEN Musa - 12/09/2024 10:40 AM EDTAssociated Problem(s): Schizoaffective disorder, bipolar type (Multi) Disha lewis-at [facility] Just started on Cobenfy [facility] Work Phone: 1(537) 458-158707-09-2025 Evaluation + Plan note* Assessment & Plan Note - LEN Musa - 12/09/2024 10:40 AM EDTAssociated Problem(s): BMI 32.0-32.9,adult [facility] Work Phone: 1(771) 851-768107-09-2025 History of Present illness Narrative* LEN Musa - 12/09/2024 10:40 AM EDT Subjective Reason for Visit: Desiree Thornton is an 59 y.o. female here for a Medicare Wellness visit. Past Medical, Surgical, and Family History reviewed and updated in chart. HPI Desiree returns for [facility] exam and f/up. Saw psychiatry-chacha lewis-was started on cobenfy. Is having some GI upset with medication. Also, GENESIGHT testing reviewed and copy of results given to patient. RLS: she reports that the medication helps but it wears off. Mammogram: 01/20/24-ordered Colon CA Screen: 12/23/19-needs repeat (sippey) Patient Care Team: LEN Musa as PCP - General (Family Medicine) Carlos Dorman MD as Consulting Physician (Pain Medicine) Review of Systems Constitutional: Negative for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 albuterol inhaler currently [facility] Work Phone: [phone]) [phone] Miscellaneous Notes* Assessment & Plan Note - LEN Musa - 09/30/2024 2:33 PM EDTAssociated Problem(s): Moderate persistent asthma without complication (HHS-HCC) Will try advair if flovent is not covered Or trilegy She is having difficulty with the current inhaler she is on, it is not effective She does not have her albuterol inhaler currently * Assessment & Plan Note - LEN Musa - 09/30/2024 2:29 PM EDT Associated Problem(s): Vitamin D deficiency Start vitamin D 50,000 units weekly * Assessment & Plan Note - LEN Musa - 09/30/2024 2:29 PM EDT Associated Problem(s): QI (stress urinary incontinence, female) Referral to urology * Assessment & Plan Note - LEN Musa - 09/30/2024 2:28 PM EDT Associated Problem(s): RLS (restless legs syndrome) Start mirapex 0.125 for the first week, and then increase to 0.25 mg nightly [facility] Work Phone: [phone]) 951-487904-30-2025 Evaluation + Plan note* Assessment & Plan Note - LEN Musa - 09/30/2024 2:29 PM EDTAssociated Problem(s): Vitamin D deficiency Start vitamin D 50,000 units weekly [facility] Work Phone: [phone]) [phone] Evaluation + Plan note* Assessment & Plan Note - LEN Musa - 09/30/2024 2:29 PM EDTAssociated Problem(s): QI (stress urinary incontinence, female) Referral to urology [facility] Work Phone: 1([phone]) 713-590904-30-2025 Evaluation + Plan note* Assessment & Plan Note - LEN Musa - 09/30/2024 2:28 PM EDTAssociated Problem(s): RLS (restless legs syndrome) Start mirapex 0.125 for the first week, and then increase to 0.25 mg nightly [facility] Work Phone: [phone] 228-612504-30-2025 History of Present illness Narrative* LNE Musa - 09/30/2024 9:00 AM EDT Subjective Patient ID: Desiree Thornton is a 59 y.o. female who presents for Establish Care (Est Care with PCP Was in ER Bruised ribs Depression ). HPI NPV Desiree here to establish care. Previous PCP Dr. Dawn. Asthma: needs albuterol inhaler. And current daily inhaler does not work. Was on flovent but had tochange due to insurance not covering last year. Was seen in ER on 09/14/24: Feels like someone punched her in the back. Laying on the floor. When trying to get up from the floor. [place] a pop and started having pain in her shoulder blade. Started on the left and moved to right. Now is across her shoulder blades. Is difficult for her to take a deep breath. She reports she can't take a deep breath. She has discussed with her pain mgmt doctor-. He has given her exercises to do, which she has not done yet. She will try these and let us know how she is doing. Kidney stone/urinary incontinence: Kidney stone seen on CT angio on left side 7 mm non-obstructing upper pole. Does have chronic back pain so isn't sure if it is any different than what she is feeling. She also is having problems with stress incontinence. She reports that if she sneezes or coughs toohard she will have to change her clothes due to urinating on herself. RLS: has not found anything that will work for her. Was on requip in the past but this just made her feel sick and did not help with her restless legs. She reports she will just wander all night because of her legs. She says she Loses time: Has alters-doesn't know when she does things. She states, I fight first and when I wake up in the morning I don't know where I am at or what I did. Because I wake up not where I fell asleep. She reports that she sleep walks/sleep eats. [facility] but didn't like how they made her feel, so she stopped them all. She has a list of the medications she was on at [facility] these include abilify, latuda, seroquel, venlafaxine, and Trihexyphendyl. She states, I am an all in or all out kind ofperson. States, I don't drink because I am an alcoholic. Was diagnosed bipolar. Is not in counseling. Feels mad all the time. Has anxiety, OCD. Has to go the same way when she is driving. Has to do the same thing at home. States, I am a hoarder, but a clean hoarder. States, Feels like my brain won't shut off and I have trouble sleeping. She was taking wellbtrin from her previous PCP for weight gain. Mammogram: had done 01/20/24 Colonoscopy: done 12/23/19-surv yearly due to poor prep-(sippey) Pap: hysterectomy-cervical cancer Review of Systems Constitutional: Negative for fatigue. HENT: Negative. Respiratory: Negative for chest tightness and shortness of breath. Cardiovascular: Positive for leg swelling (bilaterally lower extremitites). Negative for chest painand palpitations. Gastrointestinal: Negative for abdominal pain, blood in stool, constipation, diarrhea, nausea and vomiting. Genitourinary: Negative for dysuria. Musculoskeletal: Negative for arthralgias and myalgias. Restless legs Skin: Negative for color change. Neurological: Negative for dizziness, light-headedness and headaches. Psychiatric/Behavioral: Negative. Objective BP (!) 138/94 (BP Location: Right arm) Pulse 78 Ht 1.6 m (5' 3) Wt 85.4 kg (188 lb 4 oz) LMP (LMP Unknown) BMI 33.35 kg/m Physical Exam Vitals and nursing note reviewed. Constitutional: Appearance: Normal appearance. HENT: Head: Normocephalic and atraumatic. Cardiovascular: Rate and Rhythm: Normal rate and regular rhythm. Pulses: Normal pulses. Heart sounds: Normal heart sounds. Pulmonary: Effort: Pulmonary effort is normal. Breath sounds: Normal breath sounds. Abdominal: General: Bowel sounds are normal. Palpations: Abdomen is soft. Musculoskeletal: Cervical back: Normal range of motion. Right lower leg: Edema present. Left lower leg: Edema present. Skin: General: Skin is warm and dry. Neurological: General: No focal deficit present. Mental Status: She is alert and oriented to person, place, and time. Psychiatric: Attention and Perception: Attention normal. Mood and Affect: Mood normal. Speech: Speech normal. Behavior: Behavior normal. Behavior is cooperative. Thought Content: Thought content normal. Judgment: Judgment normal. 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 Assessment/Plan Problem List Items Addressed This Visit ICD-10-CM Depression F32.A Relevant Orders Referral to Psychiatry Moderate persistent asthma without complication ([facility]) - Primary J45.40 Will try advair if flovent is not covered Or trilegy She is having difficulty with the current inhaler she is on, it is not effective She does not have her albuterol inhaler currently Relevant Medications albuterol 90 mcg/actuation inhaler Advair HFA 115-21 mcg/actuation inhaler BMI 33.0-33.9,adult Z68.33 Kidney stone on left side N20.0 Relevant Orders Referral to Urology QI (stress urinary incontinence, female) N39.3 Referral to urology Relevant Orders Referral to Urology Leg swelling M79.89 Relevant Medications furosemide (Lasix) 20 mg tablet Vitamin D deficiency E55.9 Start vitamin D 50,000 units weekly Relevant Medications cholecalciferol (Vitamin D-3) 1.25 mg (50,000 units) tablet RLS (restless legs syndrome) G25.81 Start mirapex 0.125 for the first week, and then increase to 0.25 mg nightly Relevant Medications pramipexole (Mirapex) 0.125 mg tablet Other Visit Diagnoses Codes Shoulder blade pain M89.8X1 Follow up in 2 months. Return precautions discussed. For any new medications that were prescribed today, the patient was educated about their indications for use, administration, frequency and potential side effects of the medication. [facility] Work Phone: [phone] Instructions* Patient Instructions* LEN Musa - 09/30/2024 9:00 AM EDT Start Pramipexole (mirapex) for Restless leg syndrome. You will take 1 tablet nightly for the firstweek and then increase to 2 tablets nightly. documented in this [facility] Work Phone: [phone] Physician Emergency department Note* Angela Baltazar PA-C - 09/14/2024 12:02 PM EDTAssociated Order(s): ECG 12 Lead Patient is a 59-year-old female who presents to the emergency room with a chief complaint of left rib pain. Patient states that the pain started yesterday while she was laying on the ground. She states that she was stretching her back and went to go sit up. She states that she felt a pop but has noidea where the pop came from. She states that she noticed shortly thereafter that she was having pain to the left side of her chest. She states that she has pain when she breathes. She denies any direct trauma to her chest. She has placed a heating pad on the area with no relief. The pain is worse with breathing and also at times with movement. She denies any cough, fever, or chills. No rash. Shestates that the pain has been persistent since yesterday evening at around 1030. She has not taken any [id number] medication. Review of Systems Constitutional: Negative for chills and fever. HENT: Negative for ear pain and sore throat. Eyes: Negative for pain and visual disturbance. Respiratory: Negative for cough and shortness of breath. Cardiovascular: Negative for chest pain and palpitations. Gastrointestinal: Negative for abdominal pain and vomiting. Genitourinary: Negative for dysuria and hematuria. Musculoskeletal: Negative for arthralgias and back pain. Left rib pain Skin: Negative for color change and rash. Neurological: Negative for seizures and syncope. All other systems reviewed and are negative. Physical Exam Vitals and nursing note reviewed. Constitutional: General: She is not in acute distress. Appearance: Normal appearance. She is well-developed. She is not ill-appearing. HENT: Head: Normocephalic and atraumatic. Eyes: Extraocular Movements: Extraocular movements intact. Conjunctiva/sclera: Conjunctivae normal. Cardiovascular: Rate and Rhythm: Normal rate and regular rhythm. Heart sounds: No murmur heard. Pulmonary: Effort: Pulmonary effort is normal. No respiratory distress. Breath sounds: Normal breath sounds. No stridor. No wheezing, rhonchi or rales. Chest: Chest wall: Tenderness (left lateral lower rib pain) present. Abdominal: General: There is no distension. Palpations: Abdomen is soft. There is no mass. Tenderness: There is no abdominal tenderness. There is no guarding or rebound. Hernia: No hernia is present. Musculoskeletal: General: No swelling. Cervical back: Normal range of motion and neck supple. No rigidity. Skin: General: Skin is warm and dry. Capillary Refill: Capillary refill takes less than 2 seconds. Neurological: General: No focal deficit present. Mental Status: She is alert and oriented to person, place, and time. Psychiatric: Mood and Affect: Mood normal. Labs Reviewed CBC WITH AUTO DIFFERENTIAL - Abnormal Result Value WBC 7.5 nRBC 0.0 RBC 4.31 Hemoglobin 12.9 Hematocrit 40.5 MCV 94 MCH 29.9 MCHC 31.9 (*) RDW 13.8 Platelets 280 Neutrophils % 51.9 Immature Granulocytes %, Automated 0.4 Lymphocytes % 39.7 Monocytes % 6.5 Eosinophils % 0.8 Basophils % 0.7 Neutrophils Absolute 3.90 Immature Granulocytes Absolute, Automated 0.03 Lymphocytes Absolute 2.98 Monocytes Absolute 0.49 Eosinophils Absolute 0.06 Basophils Absolute 0.05 D-DIMER, VTE EXCLUSION - Abnormal D-Dimer, Quantitative VTE Exclusion 891 (*) Narrative: The VTE Exclusion D-Dimer assay is reported in ng/mL Fibrinogen Equivalent Units (FEU). Per tin cutter's instructions for use, a value of less than 500 ng/mL (FEU) may help to exclude DVT or PE in outpatients when the assay is used with a clinical pretest probability assessment.(AE must utilize and document eCalc 'Wells Score Deep Vein Thrombosis Risk' for DVT exclusion only. Emergency Department should utilize Guidelines for Emergency Department Use of the VTE Exclusion D-Dimer and Clinical Pretest probability assessment model for DVT or PE exclusion.) COMPREHENSIVE METABOLIC PANEL - Normal Glucose 95 Sodium 137 Potassium 4.8 Chloride 105 Bicarbonate 23 Anion Gap 14 Urea Nitrogen 10 Creatinine 0.65 eGFR >90 Calcium 9.3 Albumin 4.2 Alkaline Phosphatase 91 Total Protein 6.7 AST 24 Bilirubin, Total 0.7 ALT 20 MAGNESIUM - Normal Magnesium 1.96 APTT - Normal aPTT 36 Narrative: The APTT is no longer used for monitoring Unfractionated Heparin Therapy. For monitoring Heparin Therapy, use the Heparin Assay. PROTIME-INR - Normal Protime 12.1 INR 1.1 SERIAL TROPONIN-INITIAL - Normal Troponin I, High Sensitivity 3 Narrative: Less than 99th percentile of normal range cutoff- Female and children under 18 years old <14 ng/L; Male <21 ng/L: Negative Repeat testing should be performed if clinically indicated. Female and children under 18 years old 14-50 ng/L; Male 21-50 ng/L: Consistent with possible cardiac damage and possible increased clinical risk. Serial measurements may help to assess extent of myocardial damage. >50 ng/L: Consistent with cardiac damage, increased clinical risk and myocardial infarction. Serial measurements may help assess extent of myocardial damage. NOTE: Children less than 1 year old may have higher baseline troponin levels and results should be interpreted in conjunction with the overall clinical context. NOTE: Troponin I testing is performed using a different testing methodology at [facility] than at [facility]. Direct result comparisons should only be made within the same method. SERIAL TROPONIN, 1 HOUR - Normal Troponin I, High Sensitivity 4 Narrative: Less than 99th percentile of normal range cutoff- Female and children under 18 years old <14 ng/L; Male <21 ng/L: Negative Repeat testing should be performed if clinically indicated. Female and children under 18 years old 14-50 ng/L; Male 21-50 ng/L: Consistent with possible cardiac damage and possible increased clinical risk. Serial measurements may help to assess extent of myocardial damage. >50 ng/L: Consistent with cardiac damage, increased clinical risk and myocardial infarction. Serial measurements may help assess extent of myocardial damage. NOTE: Children less than 1 year old may have higher baseline troponin levels and results should be interpreted in conjunction with the overall clinical context. NOTE: Troponin I testing is performed using a different testing methodology at [facility] than at [facility]. Direct result comparisons should only be made within the same method. TROPONIN SERIES- (INITIAL, 1 HR) Narrative: The following orders were created for panel order Troponin I Series, High Sensitivity (0, 1 HR). Procedure Abnormality Status --------- ------ Troponin I, High Sensiti...[[id number]] Normal Final result Troponin, High Sensitivi...[[id number]] Normal Final result Please view results for these tests on the individual orders. CT angio chest for pulmonary embolism Final Result No evidence of a pulmonary embolism. MACRO: None. Signed by: Dar Lisa 09/14/2024 1:24 PM Dictation workstation: [id number] XR ribs 2 views left w chest pa or ap Final Result No acute significant abnormality. Scattered likely postinflammatory calcifications. MACRO: None Signed by: Lele Hernandez 09/14/2024 12:20 PM Dictation workstation: [id number] ECG 12 Lead Performed by: Angela Baltazar PA-C Authorized by: Angela Baltazar PA-C ECG interpreted by ED Physician in the absence of a rate setter: yes Comments: EKG shows normal sinus rhythm with a rate of [address] elevation. WA interval is 126 ms and QRSduration is 82 ms. EKG interpretation per myself, Angela Baltazar Medical Decision Making Patient is a 59-year-old female who presents to the emergency room with a chief complaint of of left-sided rib pain. She states that the pain started yesterday while she was laying on the ground although she denies any direct trauma to her left rib. She reports that she felt pain when she went to stand up and also felt a pop although she was unsure exactly where the pop came from. She was mildly t uriel to her left lateral lower rib on exam although given her story and no direct trauma to her chest further cardiac workup was performed. Patient had an elevated D-dimer and CT angio of the chest performed which shows no evidence of PE. No findings with regards to a rib fracture or any acute abnormalities. Workup is otherwise unremarkable. Patient was given Toradol here in the emergency department. She reported minor relief. We discussed medications that can be given given that she drove herself to the ED. I reviewed the patient's OARRS report and given that she is prescribed narcotics, I discussed with patient that I would not be able to prescribe a narcotic for her. She verbalized understanding. We discussed prescribing NSAIDs versus prednisone. Patient states that she does not want to be on prednisone. Prescription for naproxen and lidocaine patch given. Patient instructed to follow-up with primary care physician. Incentive spirometry per respiratory therapy performed and patient instructed to perform incentive spirometry at home. Differential diagnosis includes but not limited to rib contusion, rib fracture, pleurisy, costochondritis, pneumonia, pulmonary embolism, ACS Amount and/or Complexity of Data Reviewed Labs: ordered. Decision-making details documented in ED Course. Radiology: ordered and independent interpretation performed. Decision-making details documented in ED Course. Details: Left rib with chest per my interpretation shows no fracture. No infiltrate or effusion. Diagnoses as of 09/14/24 1458 Rib sprain, initial encounter Angela Baltazar PA-C 09/14/241457 [facility] Work Phone: [phone] Emergency department Note* Angela Baltazar PA-C - 09/14/2024 12:02 PM EDTAssociated Order(s): ECG 12 Lead Patient is a 59-year-old female who presents to the emergency room with a chief complaint of left rib pain. Patient states that the pain started yesterday while she was laying on the ground. She states that she was stretching her back and went to go sit up. She states that she felt a pop but has noidea where the pop came from. She states that she noticed shortly thereafter that she was having pain to the left side of her chest. She states that she has pain when she breathes. She denies any direct trauma to her chest. She has placed a heating pad on the area with no relief. The pain is worse with breathing and also at times with movement. She denies any cough, fever, or chills. No rash. Shestates that the pain has been persistent since yesterday evening at around 1030. She has not taken any [id number] medication. Review of Systems Constitutional: Negative for chills and fever. HENT: Negative for ear pain and sore throat. Eyes: Negative for pain and visual disturbance. Respiratory: Negative for cough and shortness of breath. Cardiovascular: Negative for chest pain and palpitations. Gastrointestinal: Negative for abdominal pain and vomiting. Genitourinary: Negative for dysuria and hematuria. Musculoskeletal: Negative for arthralgias and back pain. Left rib pain Skin: Negative for color change and rash. Neurological: Negative for seizures and syncope. All other systems reviewed and are negative. Physical Exam Vitals and nursing note reviewed. Constitutional: General: She is not in acute distress. Appearance: Normal appearance. She is well-developed. She is not ill-appearing. HENT: Head: Normocephalic and atraumatic. Eyes: Extraocular Movements: Extraocular movements intact. Conjunctiva/sclera: Conjunctivae normal. Cardiovascular: Rate and Rhythm: Normal rate and regular rhythm. Heart sounds: No murmur heard. Pulmonary: Effort: Pulmonary effort is normal. No respiratory distress. Breath sounds: Normal breath sounds. No stridor. No wheezing, rhonchi or rales. Chest: Chest wall: Tenderness (left lateral lower rib pain) present. Abdominal: General: There is no distension. Palpations: Abdomen is soft. There is no mass. Tenderness: There is no abdominal tenderness. There is no guarding or rebound. Hernia: No hernia is present. Musculoskeletal: General: No swelling. Cervical back: Normal range of motion and neck supple. No rigidity. Skin: General: Skin is warm and dry. Capillary Refill: Capillary refill takes less than 2 seconds. Neurological: General: No focal deficit present. Mental Status: She is alert and oriented to person, place, and time. Psychiatric: Mood and Affect: Mood normal. Labs Reviewed CBC WITH AUTO DIFFERENTIAL - Abnormal Result Value WBC 7.5 nRBC 0.0 RBC 4.31 Hemoglobin 12.9 Hematocrit 40.5 MCV 94 MCH 29.9 MCHC 31.9 (*) RDW 13.8 Platelets 280 Neutrophils % 51.9 Immature Granulocytes %, Automated 0.4 Lymphocytes % 39.7 Monocytes % 6.5 Eosinophils % 0.8 Basophils % 0.7 Neutrophils Absolute 3.90 Immature Granulocytes Absolute, Automated 0.03 Lymphocytes Absolute 2.98 Monocytes Absolute 0.49 Eosinophils Absolute 0.06 Basophils Absolute 0.05 D-DIMER, VTE EXCLUSION - Abnormal D-Dimer, Quantitative VTE Exclusion 891 (*) Narrative: The VTE Exclusion D-Dimer assay is reported in ng/mL Fibrinogen Equivalent Units (FEU). Per tin cutter's instructions for use, a value of less than 500 ng/mL (FEU) may help to exclude DVT or PE in outpatients when the assay is used with a clinical pretest probability assessment.([facility] must utilize and document eCalc 'Wells Score Deep Vein Thrombosis Risk' for DVT exclusion only. Emergency Department should utilize Guidelines for Emergency Department Use of the VTE Exclusion D-Dimer and Clinical Pretest probability assessment model for DVT or PE exclusion.) COMPREHENSIVE METABOLIC PANEL - Normal Glucose 95 Sodium 137 Potassium 4.8 Chloride 105 Bicarbonate 23 Anion Gap 14 Urea Nitrogen 10 Creatinine 0.65 eGFR >90 Calcium 9.3 Albumin 4.2 Alkaline Phosphatase 91 Total Protein 6.7 AST 24 Bilirubin, Total 0.7 ALT 20 MAGNESIUM - Normal Magnesium 1.96 APTT - Normal aPTT 36 Narrative: The APTT is no longer used for monitoring Unfractionated Heparin Therapy. For monitoring Heparin Therapy, use the Heparin Assay. PROTIME-INR - Normal Protime 12.1 INR 1.1 SERIAL TROPONIN-INITIAL - Normal Troponin I, High Sensitivity 3 Narrative: Less than 99th percentile of normal range cutoff- Female and children under 18 years old <14 ng/L; Male <21 ng/L: Negative Repeat testing should be performed if clinically indicated. Female and children under 18 years old 14-50 ng/L; Male 21-50 ng/L: Consistent with possible cardiac damage and possible increased clinical risk. Serial measurements may help to assess extent of myocardial damage. >50 ng/L: Consistent with cardiac damage, increased clinical risk and myocardial infarction. Serial measurements may help assess extent of myocardial damage. NOTE: Children less than 1 year old may have higher baseline troponin levels and results should be interpreted in conjunction with the overall clinical context. NOTE: Troponin I testing is performed using a different testing methodology at [facility] than at other [facility]. Direct result comparisons should only be made within the same method. SERIAL TROPONIN, 1 HOUR - Normal Troponin I, High Sensitivity 4 Narrative: Less than 99th percentile of normal range cutoff- Female and children under 18 years old <14 ng/L; Male <21 ng/L: Negative Repeat testing should be performed if clinically indicated. Female and children under 18 years old 14-50 ng/L; Male 21-50 ng/L: Consistent with possible cardiac damage and possible increased clinical risk. Serial measurements may help to assess extent of myocardial damage. >50 ng/L: Consistent with cardiac damage, increased clinical risk and myocardial infarction. Serial measurements may help assess extent of myocardial damage. NOTE: Children less than 1 year old may have higher baseline troponin levels and results should be interpreted in conjunction with the overall clinical context. NOTE: Troponin I testing is performed using a different testing methodology at [facility] than at other [facility]. Direct result comparisons should only be made within the same method. TROPONIN SERIES- (INITIAL, 1 HR) Narrative: The following orders were created for panel order Troponin I Series, High Sensitivity (0, 1 HR). Procedure Abnormality Status --------- ------ Troponin I, High Sensiti...[[id number]] Normal Final result Troponin, High Sensitivi...[[id number]] Normal Final result Please view results for these tests on the individual orders. CT angio chest for pulmonary embolism Final Result No evidence of a pulmonary embolism. MACRO: None. Signed by: Dar Lisa 09/14/2024 1:24 PM Dictation workstation: [id number] XR ribs 2 views left w chest pa or ap Final Result No acute significant abnormality. Scattered likely postinflammatory calcifications. MACRO: None Signed by: Lele Hernandez 09/14/2024 12:20 PM Dictation workstation: [id number] ECG 12 Lead Performed by: Angela Baltazar PA-C Authorized by: Angela Baltazar PA-C ECG interpreted by ED Physician in the absence of a rate setter: yes Comments: EKG shows normal sinus rhythm with a rate of [address] elevation. WA interval is 126 ms and QRSduration is 82 ms. EKG interpretation per myself, Angela Baltazar Medical Decision Making Patient is a 59-year-old female who presents to the emergency room with a chief complaint of of left-sided rib pain. She states that the pain started yesterday while she was laying on the ground although she denies any direct trauma to her left rib. She reports that she felt pain when she went to stand up and also felt a pop although she was unsure exactly where the pop came from. She was mildly t uriel to her left lateral lower rib on exam although given her story and no direct trauma to her chest further cardiac workup was performed. Patient had an elevated D-dimer and CT angio of the chest performed which shows no evidence of PE. No findings with regards to a rib fracture or any acute abnormalities. Workup is otherwise unremarkable. Patient was given Toradol here in the emergency department. She reported minor relief. We discussed medications that can be given given that she drove herself to the ED. I reviewed the patient's OARRS report and given that she is prescribed narcotics, I discussed with patient that I would not be able to prescribe a narcotic for her. She verbalized understanding. We discussed prescribing NSAIDs versus prednisone. Patient states that she does not want to be on prednisone. Prescription for naproxen and lidocaine patch given. Patient instructed to follow-up with primary care physician. Incentive spirometry per respiratory therapy performed and patient instructed to perform incentive spirometry at home. Differential diagnosis includes but not limited to rib contusion, rib fracture, pleurisy, costochondritis, pneumonia, pulmonary embolism, ACS Amount and/or Complexity of Data Reviewed Labs: ordered. Decision-making details documented in ED Course. Radiology: ordered and independent interpretation performed. Decision-making details documented in ED Course. Details: Left rib with chest per my interpretation shows no fracture. No infiltrate or effusion. Diagnoses as of 09/14/24 1458 Rib sprain, initial encounter Angela Baltazar PA-C 09/14/24 1458 [facility] Work Phone: [phone]) [phone] History of Present illness Narrative* Lan Dawn, DO - 02/11/2024 8:40 AM EDT Subjective Patient ID: Desiree Thornton is a 58 y.o. female who presents for Follow-up (6 month) and Obesity (Discuss weight). HPI Patient is here today for 6 mo follow up Pt reports that she feels like she is continuing to yo -yo with her diet. She will gain and loose weight but she not drop weight like normal and she is concerned coming into winter. She normally doesmore of a keto kind of diet, but is having some abd issues with eating more fiber. Admits that she feels like she is having trouble maintaining any weight loss plan and having willpower. Review of Systems Constitutional: Positive for unexpected weight change. Negative for activity change, appetite change, chills and fatigue. HENT: Negative for congestion, postnasal drip, sinus pressure, sinus pain and sore throat. Respiratory: Negative for cough, shortness of breath and wheezing. Cardiovascular: Negative for chest pain and leg swelling. Gastrointestinal: Negative for abdominal distention, diarrhea, nausea and vomiting. Musculoskeletal: Negative for back pain. Neurological: Negative for weakness and numbness. Objective BP 137/78 Pulse 88 Ht 1.6 m (5' 2.99) Wt 110 kg (243 lb) LMP (LMP Unknown) BMI 43.06 kg/m Physical Exam Constitutional: General: She is [...] Breath sounds: Normal breath sounds. No wheezing. Musculoskeletal: General: No swelling. Normal range of motion. Skin: General: Skin is warm and dry. Coloration: Skin is not jaundiced. Neurological: General: No focal deficit present. Mental Status: She is alert and oriented to person, place, and time. Cranial Nerves: No cranial nerve deficit. Psychiatric: Mood and Affect: Mood normal. Behavior: Behavior normal. Assessment/Plan Problem List Items Addressed This Visit Depression, unspecified Essential (primary) hypertension Other Visit Diagnoses Weight gain - Primary Relevant Orders Hemoglobin A1C Comprehensive Metabolic Panel Lipid Panel TSH with reflex to Free T4 if abnormal Anaphylaxis, sequela Relevant Medications EPINEPHrine (EpiPen) 0.3 mg/0.3 mL injection syringe BMI 40.0-44.9, adult (Multi) Relevant Medications buPROPion XL (Wellbutrin XL) 150 mg 24 hr tablet Other Relevant Orders Referral to Nutrition Services Elevated blood sugar Relevant Orders Hemoglobin A1C Encounter for lipid screening for cardiovascular disease Relevant Orders Lipid Panel Nerve pain Relevant Medications gabapentin (Neurontin) 300 mg capsule Immunizations Flu shot declines COVID declines Pna -- Shingles received RSV -- Mammo 01/24 Pap s/p hysterectomy DEXA -- Colon cancer screening 2019 , repeat 2029 normal Chronic back pain s/p back surgery - follows with Pain Management, Dr Dorman - on Hyslingla ER 20mg po daily 2. OA - emg negative for carpel tunnel - seeing Ortho 3. Asthma, controlled - continue arnuity and albuterol 4. RLS - continue requip 5. Depression - continue cymbalta 6. Former smoker - smoked from 13 - mid 40s - smoked 1-2 ppd 7. ANTONIO - pt interested in inspire device - hates wearing her cpap, will take it off at night often so not receiving as much benefit as couldas it presses on nerves in her face , will try gabapentin at bedtime - currently using cpap - seeing sleep medicine 8. Obesity. 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 Final diagnoses: [R63.5] Weight gain [T78.2XXS] Anaphylaxis, sequela [Z68.41] BMI 40.0-44.9, adult (Multi) [R73.9] Elevated blood sugar [Z13.220, Z13.6] Encounter for lipid screening for cardiovascular disease [M79.2] Nerve pain [I10] Essential (primary) hypertension [F33.41] Recurrent major depressive disorder, in partial remission ([facility] [place] [facility] Work Phone: [phone]) 515-230404-15-2024 History of Present illness Narrative* Lan Dawn DO - 09/16/2023 9:40 AM EDT Chief Complaint: Medicare Wellness Exam/Comprehensive Problem Focused Follow Up and Physical Exam HPI: Pt is here today for MWV. Active Problem List Patient Active Problem List Diagnosis Carpal tunnel syndrome of right wrist Pain in both wrists Median nerve dysfunction, left CMC (carpometacarpal joint) dislocation, right, initial encounter CMC arthritis Depression, unspecified Essential (primary) hypertension Comprehensive Medical/Surgical/Social/Family History Past Medical History: Diagnosis Date Depression, unspecified 09/16/2023 Depression Essential (primary) hypertension 09/16/2023 Hypertension Personal history of malignant neoplasm of cervix uteri History of cervical cancer Unspecified asthma, uncomplicated ([facility]) Asthma Past Surgical History: Procedure Laterality Date OTHER SURGICAL HISTORY 11/19/2019 Lumbar discectomy OTHER SURGICAL HISTORY 11/19/2019 Breast reduction OTHER SURGICAL HISTORY 11/19/2019 Shoulder arthroscopy OTHER SURGICAL HISTORY 11/19/2019 Total hysterectomy abdominal OTHER SURGICAL HISTORY 11/19/2019 Tubal ligation OTHER SURGICAL HISTORY 05/11/2021 Cholecystectomy laparoscopic OTHER SURGICAL HISTORY 02/23/2021 Abdominoplasty OTHER SURGICAL HISTORY 02/23/2021 Umbilical hernia repair OTHER SURGICAL HISTORY 02/23/2021 Bariatric surgery Social History Tobacco Use Smoking status: Former Current packs/day: 1.50 Types: Cigarettes Smokeless tobacco: Never Substance Use Topics Alcohol use: Not Currently Drug use: Never Family History Problem Relation Name Age of Onset Cirrhosis Mother Other (dmii) Mother Cirrhosis Sister Other (liver transplant) Sister Other (dmii) Sister Mental illness Other Diabetes Other Liver disease Other Allergies and Medications Bee venom protein (honey bee), Fruit extracts, and Egg Current Outpatient Medications on File Prior to Visit Medication Sig Dispense Refill albuterol 90 mcg/actuation inhaler Inhale 2 puffs every 6 hours if needed. cholecalciferol (Vitamin D3) 1,250 mcg (50,000 unit) tablet Take 1 tablet (50,000 Units) by mouth 1(one) time per week. 12 tablet 3 diclofenac sodium (Voltaren) 1 % gel gel Apply 0.5 Applications topically 4 times a day as needed (as needed pain and/or swelling). 100 g 1 DULoxetine (Cymbalta) [address] capsule Take 1 capsule (20 mg) by mouth once daily. Do not crush or chew. 30 capsule 5 EPINEPHrine (EpiPen) 0.3 mg/0.3 mL injection syringe Inject 0.3 mL (0.3 mg) into the muscle 1 time if needed. fluticasone (Flovent) 110 mcg/actuation inhaler Inhale 1 puff 2 times a day. Hysingla ER 20 mg 24 hr tablet Take 1 tablet (20 mg) by mouth once daily. as directed [DISCONTINUED] rOPINIRole (Requip) 0.5 mg tablet Take 1 tablet (0.5 mg) by mouth 3 times a day. 90 tablet 11 No current facility-administered medications on file prior to visit. Medicare Wellness Questionnaire How have you been on Medicare less than a year ? No Have you had a Medicare Wellness exam before ? Yes Have you had any surgeries in the last year ? No Have you developed any new diseases in the last year ? No Have any close family members developed new diseases in the last year ? No Have you been to a the hospital in the last year ? No Do you take any pills or supplements other than those prescribed for you ? No Do you take any opiates for pain such as Tramadol, Percocet or [place] ? Yes How do you consider your overall health ?Fair Have you ever used tobacco products ? Yes Have you smoked more than 100 cigarettes in your life ? Yes What form of tobacco have you used ? Cigarettes How many packs per day ? 1-2 ppd x10-15 years How many years ? 35 Have you quit ? Yes Do you drink alcohol ? No Have you ever used illegal drugs at anytime in your life including Marijuana ? No Which of the following describes your diet ?Unhealthy How many days per week on average do you exercise ? 0 days Do you have any loss of hearing ? No Do you have hearing aids ? No Have you or others noted you have loss of memory ? No Do you need someone to assist you with any of the following ? None Do you need someone to assist you with any of the following ? None Have you fallen in the last 6 months ? No Do you have any of the following in your house ? None Do you have a living will ? Yes Do you have a durable power of Garment Alteration Examiner for health care decisions ? Yes Medications and Supplements prescribed by me and other practitioners or clinical pharmacist (such as prescriptions, OTC's, herbal therapies and supplements) were reviewed and documented in the medical record. Tobacco/Alcohol/Opioid use, as well as Illicit Drug Use was screened for/reviewed and documented inSocial History section and medication list as appropriate Activities of Daily Living In your present state of health, do you have any difficulty performing the following activities?: Preparing food and eating?: No Bathing yourself: No Getting dressed: No Using the toilet:No Moving around from place to place: No In the past year have you fallen or had a near fall?:No Depression Screen (Note: if answer to either of the following is Yes, then a more complete depression screening is indicated) Q1: Over the past two weeks, have you felt down, depressed or hopeless? No Q2: Over the past two weeks, have you felt little interest or pleasure in doing things? no Current exercise habits: The patient does not participate in regular exercise at present. Dietary issues discussed: Yes Hearing difficulties: No Safe in current home environment: yes Visual Acuity assessed: no Cognitive Impairment assessed: yes Advance directives Advanced Care Planning (including a Living Will, Healthcare POA, as well as specific end of life choices and/or directives), was discussed for approximately 5 minutes with the patient and/or surrogate, voluntarily, and documented in the medical record. Cardiac Risk Assessment Cardiovascular risk was discussed and, if needed, lifestyle modifications recommended, including nutritional choices, exercise, and elimination of habits contributing to risk. We agreed on a plan to reduce the current cardiovascular risk based on above discussion as needed. Aspirin use/disuse was discussed after reviewing the updated guidelines below: Consider low dose Aspirin (81-162 mg) use if the benefit for cardiovascular disease prevention outweighs risk for bleeding complications. In general, low dose ASA should be considered: In patients WITHOUT prior MS/stroke/PAD (primary prevention): a. Age <60: Use if 10-year cardiovascular disease risk >20%, with discussion of risks and benefits with patient b. Age 60-<70: Use if 10-year cardiovascular disease risk >20% and low bleeding (e.g., gastrointenstinal) risk, with discussion of risks and benefits with patient c. Age >=70: Do not use In patients WITH prior MS/stroke/PAD (secondary prevention): Generally use unless extremely high bleeding (e.g., gastrointenstinal) risk, with discussion of risks and benefits with patient ROS otherwise negative aside from what was mentioned above in HPI. Vitals BP 144/86 Pulse 99 Ht 1.6 m (5' 2.99) Wt 106 kg (234 lb) LMP (LMP Unknown) BMI 41.46 kg/m Body mass index is 41.46 kg/m . Physical Exam Gen: Alert, NAD HEENT: PERRLA, EOMI, conjunctiva and sclera normal in appearance. Neck: Supple with FROM; No masses/nodes palpable; Thyroid nontender and without nodules; No ALLAN Respiratory: Lungs CTAB Cardiovascular: Heart RRR. No M/R/G. Peripheral pulses equal bilaterally Abdomen: Soft, nontender, BS present throughout; No R/G/R; No HSM or masses palpated Extremities: FROM all extremities; Muscle strength grossly normal with good tone Neuro: CN II-XII intact; Reflexes 2+/2+; Gross motor and sensory intact Skin: No suspicious lesions present Mammo 01/23 DEXA -- Colonoscopy 2019 PAP s/p hysterectomy Flu shot declines PNA -- Shingles received RSV -- COVID received Assessment and Plan: Problem List Items Addressed This Visit Depression, unspecified Overview Depression Essential (primary) hypertension Overview Hypertension Other Visit Diagnoses RLS (restless legs syndrome) - Primary Relevant Medications rOPINIRole (Requip) 1 mg tablet ANTONIO (obstructive sleep apnea) Relevant Orders Referral to Adult Sleep Medicine Chronic back pain s/p back surgery - follows with Pain Management, Dr Dorman - on Hyslingla ER 20mg po daily 2. OA - emg negative for carpel tunnel - seeing Ortho will have injections in both knees 3. Asthma, controlled - continue flovent (flovent no longer covered is going to call with formulary alternatives ) and albuterol 4. RLS - was started on Amitriptyline does not think that has helped - increase requip 5. Depression - continue wellbutrin 300mg po daily 6. Former smoker - smoked from 13 - mid 40s - smoked 1-2 ppd 7. ANTONIO - pt interested in inspire device - hates wearing her cpap, will take it off at night often so not receiving as much benefit as could - currently using cpap - referral to sleep medicine During the course of the visit the patient was educated and counseled about age appropriate screening and preventive services. Completed preventive screenings were documented in the chart and orders were placed for outstanding screenings/procedures as documented in the Assessment and Plan. Patient Instructions (the written plan) was given to the patient at check out. Lan Dawn DO [facility] Work Phone: 1(371) 885-234903-01-2024 Evaluation + Plan note* Assessment & Plan Note - Wendy Rodriguez APRN-JANEY - 08/02/2023 12:47 PM ESTAssociated Problem(s): CMC (carpometacarpal joint) dislocation, right, initial encounter We discussed symptom control with OTC Tylenol and topical pain relievers. Instructed on 2 grams diclofenac gel 4 times daily. Patient may also use heat or ice, whichever offers better relief. Continue to wear thumb spica brace at nighttime and as needed with aggravating activities. We did discuss risk and benefits of cortisone injection for acute flare of symptoms, sown injection and OT offered at today's visit. Patient wishes to wait as she is pending epidural spinal injections and bilateral knee injections with her pain management doctor. She states she will contact her insurance company and contact the office for an injection visit after she receives those other injections. Patient in agreement with plan of care. This note was generated using Joystickers software. It may contain errors in wording, punctuation or spelling. [facility] Work Phone: 1(755) 824-293803-01-2024 Miscellaneous Notes* Assessment & Plan Note - LEN Colon - 08/02/2023 12:47 PM ESTAssociated Problem(s): CMC (carpometacarpal joint) dislocation, right, initial encounter We discussed symptom control with OTC Tylenol and topical pain relievers. Instructed on 2 grams diclofenac gel 4 times daily. Patient may also use heat or ice, whichever offers better relief. Continue to wear thumb spica brace at nighttime and as needed with aggravating activities. We did discuss risk and benefits of cortisone injection for acute flare of symptoms, sown injection and OT offered at today's visit. Patient wishes to wait as she is pending epidural spinal injections and bilateral knee injections with her pain management doctor. She states she will contact her insurance company and contact the office for an injection visit after she receives those other injections. Patient in agreement with plan of care. This note was generated using Joystickers software. It may contain errors in wording, punctuation or spelling. documented in this encounterC[facility] Work Phone: [phone]) 212-127703-01-2024 History of Present illness Narrative* LEN Colon - 08/02/2023 9:45 AM EST Subjective Patient ID: Desiree Thornton is a 58 y.o. female. Chief Complaint: Follow-up and Pain of the Right Wrist (Patient had EMG done on 07/31/2023.) Right Wrist Associated symptoms include arthralgias. Desiree is a pleasant 58-year-old female presenting for FUV of right wrist pain. Symptoms are progressively worse over the last 7 months. L wrist/hand sx are worsening over time but not as bad as right. No new injuries Rotates Diclo gel and horse linament with no improvement Aggravated with anything she does with R hand, moving R worse than L No improvements Diclo gel no help,horse linament works Worse with using it No heat or ice attempted Bracing at night,soft wrap during datimey Seeing pain mgmt for back and bilat knee injections 08/13/23 Patient is right-hand dominant. Accompanied by friend for today's visit Review of Systems Constitutional: Negative. HENT: Negative. Respiratory: Negative. Cardiovascular: Negative. Endocrine: Negative. Musculoskeletal: Positive for arthralgias. Skin: Negative. Neurological: Negative. Hematological: Negative. Psychiatric/Behavioral: Negative. Objective Right Hand Exam Tenderness The patient is experiencing tenderness in the dorsal area and radial area (Proximal carpal row/medial radial and ulnar region). Range of Motion Wrist Extension: 40 Flexion: 70 Pronation: normal Supination: normal Tests Phalen s sign: positive Tinel's sign (median nerve): negative Delano's test: negative Other Sensation: normal Pulse: present Comments: Full ROM with radial and ulnar deviation, no sx aggravation Mildly positive Phalen's with increased paraesthesia through palm and thumb, index, middle and partial ring fingers. Mild incrae in pain with Finkelsteins Full ROM of distal joints with no sx aggravation, distal motor and sensory intact, cap refill at 2 seconds. Patient is tender over the right thumb CMC joint and positive grind test. There is small amount of thenar edema noted, aggravates paresthesia your carpal tunnel with palpation and certain motions. Left Hand Exam Tenderness Left hand tenderness location: volar region, carpal tunnel. Range of Motion Wrist Extension: 50 Flexion: 70 Tests Tinel's sign (median nerve): positive Other Erythema: absent Sensation: normal Pulse: present Comments: Full ROM of distal joints with no sx aggravation, distal motor and sensory intact, cap refill at 2 seconds. Image Results: FINDINGS: Bony structures: Intact Joint spaces: Maintained Soft tissues: Unremarkable without significant edema or radiodense foreign body Other: None significant IMPRESSION: No acute findings. MACRO: None Signed by: Sage Carcamo 07/02/2023 10:23 AM Dictation workstation: [id number] Reviewed EMG report findings during today's visit, needle exam of muscles of bilateral upper extremities was within normal limits, impression of no electrodiagnostic evidence of right or left carpal tunnel syndrome Assessment/Plan Encounter Diagnoses: Problem List Items Addressed This Visit ICD-10-CM Carpal tunnel syndrome of right wrist G56.01 Pain in both wrists - Primary M25.531, M25.532 Relevant Orders Follow Up In Orthopaedic Surgery Median nerve dysfunction, left G56.12 CMC arthritis M19.049 We discussed symptom control with OTC Tylenol and topical pain relievers. Instructed on 2 grams diclofenac gel 4 times daily. Patient may also use heat or ice, whichever offers better relief. Continue to wear thumb spica brace at nighttime and as needed with aggravating activities. We did discuss risk and benefits of cortisone injection for acute flare of symptoms, sown injection and OT offered at today's visit. Patient wishes to wait as she is pending epidural spinal injections and bilateral knee injections with her pain management doctor. She states she will contact her insurance company and contact the office for an injection visit after she receives those other injections. Patient in agreement with plan of care. This note was generated using Joystickers software. It may contain errors in wording, punctuation or spelling. documented in this encounterC[facility] Work Phone: [phone]) 667-883902-28-2024 Procedure [facility] 07-01-2023 Evaluation + Plan note* Assessment & Plan Note - LEN Colon - 07/01/2023 12:59 PM ESTAssociated Problem(s): Carpal tunnel syndrome of right wrist [...] of care This note was generated using Joystickers software. It may contain errors in wording, punctuation or spelling. [facility] Work Phone: [phone]) 367-837101-29-2024 Miscellaneous Notes* Assessment & Plan Note - LEN Colon - 07/01/2023 12:59 PM ESTAssociated Problem(s): Carpal tunnel syndrome of right wrist [...] of care This note was generated using Joystickers software. It may contain errors in wording, punctuation or spelling. documented in this encounterC[facility] Work Phone: 1(410) 375-267001-29-2024 History of Present illness Narrative* LEN Colon - 07/01/2023 9:45 AM EST Subjective Patient ID: Desiree Thornton is a [...] months. L wrist/hand sx are worsening over timebut not as bad as right. Bracing x [...] of care This note was generated using Joystickers software. It may contain errors in wording, punctuation or spelling. Relevant Orders EMG & nerve conduction Follow Up In Orthopaedic Surgery Pain in both wrists M25.531, M25.532 Relevant Orders EMG & nerve conduction Follow Up In Orthopaedic Surgery Median nerve dysfunction, left G56.12 Relevant Orders EMG & nerve conduction Follow Up In Orthopaedic Surgery documented in this encounterC[facility] Work Phone: 1([phone]) 274-634401-15-2024 Evaluation + Plan note* Assessment & Plan Note - LEN Colon - 06/17/2023 12:52 PM ESTAssociated Problem(s): Carpal tunnel syndrome of right wrist Sx control with rx Medrol Dosepak to take as directed, take with food, Tylenol prn. We discussed use of topical diclofenac gel up to 4 times daily to the wrist. Patient was fitted in a carpal tunnel brace with good fit and support per staff at today's visit. Idid encourage the patient to wear throughout the daytime and repetitive activities x 1 week then may decrease to Nighttime bracing and prn for repetitive or aggravating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 Referring Provider, Other Provider Act julieta Dr. Lan Dawn DO Primary Care Provider Active Dr. Troy Dillon MD Attending Provider Active Team Status: Inactive Member Role Status Dates MICHAEL RAHMAN Attending Provider, Referring Provider Active Dr. 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 Relationship Specialty Start Date End Date Lan Dawn DO [address] [facility] [place] [phone] (Fax) PCP - General Internal Medicine 06/07/23 Front End Software Developer Relationship Specialty Start Date End Date Lan Dawn DO [address] [facility] [place] [address] (Fax) PCP - General Internal Medicine 06/07/23 Front End Software Developer Relationship Specialty Start Date End Date Lan Dawn DO [address] [facility] [place] [address] (Fax) PCP - General Internal Medicine 06/07/23 Front End Software Developer Relationship Specialty Start Date End Date Lan Dawn DO [address] [facility] [place] [address] PCP - General Internal Medicine 06/07/23 Front End Software Developer Relationship Specialty Start Date End Date Chloe Galaviz APRN-JANEY [address] [place] [address] PCP - General Family Medicine 09/14/24 Front End Software Developer Relationship Specialty Start Date End Date Chloe Galaviz APRN-DIRECTOR OF INSTRUCTIONAL TECHNOLOGY [address] [address] PCP - General Family Medicine 09/30/24 Carlos Dorman MD [address] [facility] [place] [address] Consulting Physician Pain Medicine 09/30/24 Team Status: Active Member Role Status Dates NISHA Mendoza Primary Care Provider Active Team Status: Inactive Member Role Status Dates NISHA Mendoza Primary Care Provider Active Start: October 21, 2024 End: October 21, 2024 Dr. Slime Collier MD Attending Provider Active Start: October 21, 2024 End: October 21, 2024 Dr. Slime Collier MD Referring Provider Active Start: October 21, 2024 End: October 21, 2024 Front End Software Developer Relationship Specialty Start Date End Date Kevin Pickett MD PCP - General 09/10/12 Kevin Pickett MD [address] [place] [address] 09/10/12 Front End Software Developer Relationship Specialty Start Date End Date Chloe Galaviz APRN-DIRECTOR OF INSTRUCTIONAL TECHNOLOGY [address] [address] PCP - General Family Medicine 09/30/24 Carlos Dorman MD [address] [facility] [place] [address] Consulting Physician Pain Medicine 09/30/24 Team Status: Active Member Role/Relationship Status Dates NISHA Mendoza Primary Care Provider Active Team Status: Inactive Member Role/Relationship Status Dates NISHA Mendoza Primary Care Provider Active Start: October 21, 2024 End: October 21, 2024 Dr. Slime Collier MD Attending Provider Active Start: October 21, 2024 End: October 21, 2024 Dr. Slime Collier MD Referring Provider Active Start: October 21, 2024 End: October 21, 2024 Team Status: Inactive Member Role/Relationship Status Dates NISHA Mendoza Primary Care Provider Active Start: January 01, 2025 End: January 01, 2025 NISHA Mendoza Referring Provider Active Sta rt: January 01, 2025 End: January 01, 2025 Dr. Slime Collier MD Attending Provider Active Start: January 01, 2025 End: January 01, 2025 Goals (unrecognized section and content) Goals may be documented in a n alternate sectionGoals may be documented in an alternate sectionGoals may be documented in an alternate section Scheduled Active and Recently Administ ered Medications (unrecognized section and content) Medication Order 09/12/2024 09/13/2024 09/14/2024 iohexol (OMNIPaque) 350 mg iodine/mL solution 70 mL (COMPLETED) 70 mL, intravenous, Once in imaging, Starting on Sat09/14/24 at 1318, For 1 dose 1318 (Given - Provid er: Lauren Sharma) ketorolac (Toradol) injection 30 mg (COMPLETED) 30 mg, intravenous, Once, On Sat09/14/24 at 1300, For 1 dose 1313 (Given - Provid er: Libra Benavides RN) FOR RECORDS PERTAINING TO PATIENTS WHO ARE [...] BE BASED ON THE PRIMARY CLINICAL RECORDS. [facility]. provides no warranty or guarantee of the accuracy or completeness of information in this document.
--- OUTSIDE RECORDS SUMMARY | 2025-01-07 09:51 | XMS RPT_ITS | CCD ---
Author Organization [facility] Care Team Providers Care Catering Coordinator Name Role Phone Ruth Samaniego Unavailable Unavailable [...] Lan Dawn DO Primary Care Provider [phone] WENDY RODRIGUEZ Referring Provider WENDY RODRIGUEZ Other Provider Dr. Lan Dawn Primary Care Provider Dr. Troy Dillon Attending Provider LAN DAWN Primary Care Unavailable OBERHAUSLAN CHUNG Primary Care Unavailable Chloe Freitas Primary Care Provider CHLOE GALAVIZ Primary Care Unavailable OBERHAUSER, LAN Oconnor Referring Unavailable OBLAN RIGGS Primary Care Unavailable OBERHAUSER, LAN Oconnor Referring Unavailable OBERHAUSER, LAN Oconnor Primary Care Unavailable CARLOS DORMAN Referring Unavailable OBLAN RIGGS Primary Care Unavailable Chloe Freitas Primary Care Provider [phone] Carlso Dorman MD Unavailable Galaviz SCUBA DIVER-C, Chloe Primary Care Provider [phone] Dr. Slime Collier MD Attending Provider Dr. Slime Collier MD Referring Provider [phone] Kevin Pickett MD Primary Care Provider Piyush [...] Dr. Slime Collier MD Referring Provider Ben SCUBA DIVER-C, Chloe Referring Provider Slime Collier Attending Unavailable [...] [Bee Stings] Propensity to adverse reactions (disorder) [facility] Repository (3 sources) Egg; Translations: [Eggs] Propensity to adverse reactions to drug (disorder) [facility] ([facility]) [place]; Translations: [Peaches] Propensity to adverse reactions to drug (disorder) [facility] ([facility] sources) Spiders; Translations: [Spiders] Propensity to adverse reactions (disorder) [facility] Repository (1 source) No Known Allergies; Translations: [No Known Allergies] Propensity to adverse reactions to drug (disorder) [facility] Repository (2 sources) apis mellifera venom Allergy to substance (finding) [facility] Work Phone: (20 sources) egg extract; Translations: [EGG] Drug Allergy 6 Rash [facility] Work Phone: (20 sources) Fruit; Translations: [FRUIT EXTRACTS] Propensity to adverse reactions 6 [facility] Work Phone: (20 sources) Bee Venom Protein (Honey Bee); Translations: [BEE VENOM PROTEIN (HONEY BEE)] Propensity to adverse reactions 6 [facility] (5 sources) Insect Venom; Translations: [INSECT VENOM] Propensity to adverse reactions 5 Anaphylaxis [facility] Work Phone: (2 sources) Other; Translations: [OTHER] Propensity to adverse reactions 6 [facility] (2 sources) peach allergenic extract; Translations: [peach] Drug Allergy 5 [facility] (2 sources) Food Allergies: Uncoded; Translations: [Food Allergies: Uncoded] Allergy to substance [address] [place] [address] Comment on above: PEACHES (2 sources) spider venom; Translations: [spider venom] Allergy to substance 5 Anaphylaxis [facility] (1 source) egg extract Drug Allergy 5 [facility] Repository (1 source) bee venom protein (honey bee) Drug allergy (disorder) 5 [facility] Repository Medications Current Medications Medication Drug Class(es) Dates Sig (Normalized) Sig (Original) [id number] 200 actuat albuterol 0.09 mg/actuat metered dose [...] by mouth 2 times a day. Active [id number] 0.3 ml EPINEPHrine 1 mg/ml auto-injector (20 [...] inhaler Indications: Moderate persistent asthma without complication ([facility]) Inhale 2 puffs 2 times a day. [...] Reference Range Facility MR/PATCharli 01-04-2025 MR/PAT.[facility] Medical Records Department [address] [place] [address] PAT - Anesthesia 01/04/25 1149 MR#: [id number] Acct: [id number] Name: DESIREE THORNTON Rep #: [id number] : 1965 59 From: Jhonathan Logan MD PCP: NISHA Mendoza Status:PRE [facility] Y Race: C Location: [facility] Pre-Assessment Diagnosis/Proposed Procedure Planned Operative Procedure(s): LEFT RENAL ESWL Anesthesia History Anesthesia History - supervisor curing room: Anesthesia History - supervisor curing room Hx Hospitalization No 12/24/24 08:22 Any Problems [...] take am of surgery PONV PONV - supervisor curing room: PONV - supervisor curing room Female Yes 12/24/24 08:22 HX of Motion Sickness No 12/24/24 08:22 HX of N/V After Surgery No 12/24/24 08:22 Non-Smoker Yes 12/24/24 08:22 Duration of Surgery greater Yes 12/24/24 08:22 than 60 minutes Number of Risk Factors 3 12/24/24 08:22 PONV Score Moderate Risk 12/24/24 08:22 Respiratory Assessment Respiratory Assessment - supervisor curing room: Respiratory Tract Infection Hx - supervisor curing room Hx Respiratory Tract Infection No 12/24/24 08:22 STOP Sleep Apnea STOP Sleep Apnea - supervisor curing room: STOP Sleep Apnea - supervisor curing room Hx Hypertension No 12/24/24 08:22 Hx Sleep [...] Tobacco Use History Tobacco Use History - supervisor curing room: Tobacco Use History - supervisor curing room Tobacco Use Smoking Status Former smoker 12/24/24 08:22 Hx Tobacco Use No 12/24/24 08:22 Years Smoking Packs Smoked per Day Smoking Cessation Date was Yes - quit smoking within 15 12/24/24 08:22 within the last 15 years years Hx Smoking Cessation Date Hx Smoking Cessation Counseling Hematologic Medial History Hematologic Hx - supervisor curing room: 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 Normal [facility] Basic Metabolic Profile (BMP )on 01-01-2025 BUN/CRE 25.8 RATIO High 10-20 [facility] Comment on above: Performed By: #### L 500.2500, L100.0500 #### [facility] [address] [place], [address] Calcium [Mass/Vol] 9.9 mg/dL Normal 7.6-11.0 [facility] Comment on above: Performed By: #### L 500.2500, L100.0500 #### [facility] [address] [place], [address] Chloride [Moles/Vol] 103 mmol/L Normal 98-108 [facility] Comment on above: Performed By: #### L 500.2500, L100.0500 #### [facility] [address] [place], [address] CO2 [Moles/Vol] 25.3 mmol/L Normal 21.0-32.0 [facility] Comment on above: Performed By: #### L 500.2500, L100.0500 #### [facility] [address] [place], [address] Creatinine [Mass/Vol] 0.68 mg/dL Low 0.70-1.20 [facility] Comment on above: Performed By: #### L 500.2500, L100.0500 #### [facility] [address] [place], [address] GAP 11 Normal 5-15 [facility] Comment on above: Performed By: #### L 500.2500, L100.0500 #### [facility] [address] [place], [address] GFR/1.73 sq M.predicted among non-blacks MDRD (S/P/Bld) [Vol rate/Area] 101 mL/min/{1.73_m2} Normal >60 [facility] Comment on above: Result Comment: mL/m in/1.73m2 CKD-EPI Creatinine Equation (2020) Performed By: #### L 500.2500, L100.0500 #### [facility] [address] [place], [address] Glucose [Mass/Vol] 104 mg/dL High 70-99 [facility] Comment on above: Performed By: #### L 500.2500, L100.0500 #### [facility] [address] [place], [address] Potassium [Moles/Vol] 5.2 mmol/L High 3.3-5.1 [facility] Comment on above: Performed By: #### L 500.2500, L100.0500 #### [facility] [address] [place], [address] Sodium [Moles/Vol] 139 mmol/L Normal 133-145 [facility] Comment on above: Performed By: #### L 500.2500, L100.0500 #### [facility] [address] [place], [address] Urea nitrogen [Mass/Vol] 18 mg/dL Normal 4-19 [facility] Comment on above: Performed By: #### L 500.2500, L100.0500 #### [facility] [address] [place], [address] CBC-Complete Blood Cnt No Di ffon 01-01-2025 Erythrocyte distribution width (RBC) [Ratio] 13.6 % Normal 11.6-14.6 [facility] Comment on above: Performed By: #### L 500.2500, L100.0500 #### [facility] [address] [place], [address] Hematocrit (Bld) [Volume fraction] 43.4 % Normal 37-47 [facility] Comment on above: Performed By: #### L 500.2500, L100.0500 #### [facility] [address] [place], [address] Hemoglobin (Bld) [Mass/Vol] 13.8 g/dL Normal 12.0-15.0 [facility] Comment on above: Performed By: #### L 500.2500, L100.0500 #### [facility] [address] [place], [address] MCH (RBC) [Entitic mass] 29.9 pg Normal 27.0-32.0 [facility] Comment on above: Performed By: #### L 500.2500, L100.0500 #### [facility] [address] [place], [address] MCHC (RBC) [Mass/Vol] 31.8 g/dL Low 32-36 [facility] Comment on above: Performed By: #### L 500.2500, L100.0500 #### [facility] [address] [place], [address] MCV (RBC) [Entitic vol] 93.9 fL Normal 81-99 [facility] Comment on above: Performed By: #### L 500.2500, L100.0500 #### [facility] [address] [place], [address] Platelet mean volume (Bld) [Entitic vol] 10.0 fL Normal 6.2-12.0 [facility] Comment on above: Performed By: #### L 500.2500, L100.0500 #### [facility] [address] [place], [address] Platelets (Bld) [#/Vol] 260 10*3/uL Normal 150-450 [facility] Comment on above: Performed By: #### L 500.2500, L100.0500 #### [facility] [address] [place], [address] RBC (Bld) [#/Vol] 4.62 10*6/uL Normal 4.2-5.4 [facility] Comment on above: Performed By: #### L 500.2500, L100.0500 #### [facility] [address] [place], [address] RDW SD 46.6 fl High 35.1-43.9 [facility] Comment on above: Performed By: #### L 500.2500, L100.0500 #### [facility] [address] [place], [address] WBC (Bld) [#/Vol] 10.4 10*3/uL Normal 4.4-11.0 [facility] Comment on above: Performed By: #### L 500.2500, L100.0500 #### [facility] [address] [place], [address] MR/HELENsaadia 01-01-2025 MR/HELEN [facility] [address] [facility], [address] [place] [address] OFFICE VISIT Date of Service: 01/01/25 MR#: [id number] Acct: [id number] Name: DESIREE THORNTON Rep #: [id number] : 1965 Provider: Dr. 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 Normal [facility] Abdomen Single Viewon 2024 Abdomen Single View [facility] Imaging Services [address] [place], [place] [id number] Abdomen Single View MR#: [id number] Acct: [id number] Name: DESIREE THORNTON Rep #: [id number] : 1965 F 59 From: Seamus Morales MD PCP: NISHA Mendoza Status: REG CLI Study: Abdomen Single View Date of Exam: 10/21/24 Exam# [id number] Ordering Dr: Slime Collier MD EXAM: XR [...] the colon consistent with constipation. Reading Location: [facility] CC: SCUBA DIVER-C Chloe Galaviz; Dr. Slime Collier MD Transmission Engineer: Signed Normal [facility] CBC W Auto Differential pane l (Bld)on 09-14-2024 Basophils (Bld) [#/Vol] 0.05 10*3/uL [facility] Basophils/100 WBC (Bld) 0.7 % 0.0 - 2.0 % [facility] Eosinophils (Bld) [#/Vol] 0.06 10*3/uL [facility] Eosinophils/100 WBC (Bld) 0.8 % 0.0 - 6.0 % [facility] Erythrocyte distribution width (RBC) [Ratio] 13.8 % 11.5 - 14.5 % [facility] Hematocrit (Bld) [Volume fraction] 40.5 % 36.0 - 46.0 % [facility] Hemoglobin (Bld) [Mass/Vol] 12.9 g/dL 12.0 - 16.0 g/dL [facility] Immature granulocytes (Bld) [#/Vol] 0.03 10*3/uL [facility] Immature granulocytes/100 WBC (Bld) 0.4 % 0.0 - 0.9 % [facility] Comment on above: Immature Granulocyte Count (IG) includes promyelocytes, myelocytes and metamyelocytes but does not include bands. Percent differential counts (%) should be interpreted in the context of the absolute cell counts (cells/UL). Interpretation and review of laboratory results Abnormal [facility] Lymphocytes (Bld) [#/Vol] 2.98 10*3/uL [facility] Lymphocytes/100 WBC (Bld) 39.7 % 13.0 - 44.0 % [facility] MCH (RBC) [Entitic mass] 29.9 pg 26.0 - 34.0 pg [facility] MCHC (RBC) [Mass/Vol] 31.9 g/dL Low 32.0 - 36.0 g/dL [facility] MCV (RBC) [Entitic vol] 94 fL 80 - 100 fL [facility] Monocytes (Bld) [#/Vol] 0.49 10*3/uL [facility] Monocytes/100 WBC (Bld) 6.5 % 2.0 - 10.0 % [facility] Neutrophils (Bld) [#/Vol] 3.9 10*3/uL [facility] Comment on above: Percent differential counts (%) should be interpreted in the context of the absolute cell counts (cells/uL). Neutrophils/100 WBC (Bld) 51.9 % 40.0 - 80.0 % [facility] Nucleated RBC/100 WBC (Bld) [Ratio] 0 % [facility] Platelets (Bld) [#/Vol] 280 10*3/uL [facility] RBC (Bld) [#/Vol] 4.31 10*6/uL [facility] WBC (Bld) [#/Vol] 7.5 10*3/uL [facility] Basophils (Bld) [#/Vol] 0.05 x10*3/uL Normal 0.00-0.10 [facility] Comment on above: Performed By: #### 5 7021-8 #### KATE STEVENS ([id number]) [facility] ([facility]) [address] [place] [address] Basophils/100 WBC (Bld) 0.7 % Normal 0.0-2.0 [facility] Comment on above: Performed By: #### 5 7021-8 #### KATE STEVENS ([id number]) [facility] ([facility]) [address] [place] [address]38[address] Eosinophils (Bld) [#/Vol] 0.06 x10*3/uL Normal 0.00-0.70 [facility] Comment on above: Performed By: #### 5 7021-8 #### KATE STEVENS ([id number]) [facility] ([facility]) [address] [place] [address]242 Eosinophils/100 WBC (Bld) 0.8 % Normal 0.0-6.0 [facility] Comment on above: Performed By: #### 5 7021-8 #### KATE STEVENS ([id number]) [facility] ([facility]) [address] [place] [address] 42081 Erythrocyte distribution width (RBC) [Ratio] 13.8 % Normal 11.5-14.5 [facility] Comment on above: Performed By: #### 5 7021-8 #### KATE STEVENS ([id number]) [facility] ([facility]) [address] [place] [address]149 Hematocrit (Bld) [Volume fraction] 40.5 % Normal 36.0-46.0 [facility] Comment on above: Performed By: #### 5 7021-8 #### KATE STEVENS ([id number]) [facility] ([facility]) [address] [place] [address] 19582 Hemoglobin (Bld) [Mass/Vol] 12.9 g/dL Normal 12.0-16.0 [facility] Comment on above: Performed By: #### 5 7021-8 #### KATE STEVENS ([id number]) [facility] ([facility]) [address] [place] [address] 23144 Immature granulocytes (Bld) [#/Vol] 0.03 x10*3/uL Normal 0.00-0.70 [facility] Comment on above: Performed By: #### 5 7021-8 #### KATE STEVENS ([id number]) [facility] ([facility]) [address] [place] [address] 11932 Immature granulocytes/100 WBC (Bld) 0.4 % Normal 0.0-0.9 [facility] Comment on above: Result Comment: Cyndy ture Granulocyte Count (IG) includes promyelocytes, myelocytes and metamyelocytes but does not include bands. Percent differential counts (%) should be interpreted in the context of the absolute cell counts (cells/UL). Performed By: #### 5 7021-8 #### KATE STEVENS ([id number]) [facility] ([facility]) [address] [place] [address]14 Lymphocytes (Bld) [#/Vol] 2.98 x10*3/uL Normal 1.20-4.80 [facility] Comment on above: Performed By: #### 5 7021-8 #### KATE STEVENS ([id number]) [facility] ([facility]) [address] [place] [address] 45225 Lymphocytes/100 WBC (Bld) 39.7 % Normal 13.0-44.0 [facility] Comment on above: Performed By: #### 5 7021-8 #### KATE STEVENS ([id number]) [facility] ([facility]) [address] [place] [address] 79765 MCH (RBC) [Entitic mass] 29.9 pg Normal 26.0-34.0 [facility] Comment on above: Performed By: #### 5 7021-8 #### KATE STEVENS ([id number]) [facility] ([facility]) [address] [place] [address] MCHC (RBC) [Mass/Vol] 31.9 g/dL Low 32.0-36.0 [facility] Comment on above: Performed By: #### 5 7021-8 #### KATE STEVENS ([id number]) [facility] ([facility]) [address] [place] [address] MCV (RBC) [Entitic vol] 94 fL Normal 80-100 [facility] Comment on above: Performed By: #### 5 7021-8 #### KATE STEVENS ([id number]) [facility] ([facility]) [address] [place] [address] 29466 Monocytes (Bld) [#/Vol] 0.49 x10*3/uL Normal 0.10-1.00 [facility] Comment on above: Performed By: #### 5 7021-8 #### KATE STEVENS ([id number]) [facility] ([facility]) [address] [place] [address] 72643 Monocytes/100 WBC (Bld) 6.5 % Normal 2.0-10.0 [facility] Comment on above: Performed By: #### 5 7021-8 #### KATE STEVENS ([id number]) [facility] ([facility]) [address] [place] [address] 83976 Neutrophils (Bld) [#/Vol] 3.90 x10*3/uL Normal 1.20-7.70 [facility] Comment on above: Result Comment: Perc ent differential counts (%) should be interpreted in the context of the absolute cell counts (cells/uL). Performed By: #### 5 7021-8 #### KATE STEVENS ([id number]) [facility] ([facility]) [address] [place] [address] 64[address] Neutrophils/100 WBC (Bld) 51.9 % Normal 40.0-80.0 [facility] Comment on above: Performed By: #### 5 7021-8 #### KATE STEVENS ([id number]) [facility] ([facility]) [address] [place] [address] 53624 Nucleated RBC/100 WBC (Bld) [Ratio] 0.0 /100 WBCs Normal 0.0-0.0 [facility] Comment on above: Performed By: #### 5 7021-8 #### KATE STEVENS ([id number]) [facility] ([facility]) [address] [place] [address] 71256 Platelets (Bld) [#/Vol] 280 x10*3/uL Normal 150-450 [facility] Comment on above: Performed By: #### 5 7021-8 #### KATE STEVENS ([id number]) [facility] ([facility]) [address] [place] [address] 28131 RBC (Bld) [#/Vol] 4.31 x10*6/uL Normal 4.00-5.20 [facility] Comment on above: Performed By: #### 5 7021-8 #### KATE STEVENS ([id number]) [facility] ([facility]) [address] [place] [address] 72081 WBC (Bld) [#/Vol] 7.5 x10*3/uL Normal 4.4-11.3 [facility] Comment on above: Performed By: #### 5 7021-8 #### KATE STEVENS ([id number]) [facility] ([facility]) [address] [place] [address] ANGIO CHEST FOR PULMONARY EMBOLISMon 09-14-2024 CT ANGIO CHEST FOR PULMONARY EMBOLISM Interpreted By: Dar Lisa, STUDY: CT ANGIO CHEST FOR PULMONARY EMBOLISM; 09/14/2024 1:17 pm INDICATION: Signs/Symptoms:left rib pain, pleuritic pain. COMPARISON: None. ACCESSION NUMBER(S): [id number] ORDERING CLINICIAN: ANGELA BALTAZAR TECHNIQUE: Helical data [...] Dar Lisa 09/14/2024 1:24 PM Dictation workstation: [id number] [facility] CT Chest W contrast IV and C T angiogram Pulmonary arteries for pulmonary embolus W contrast Adriel 09-14-2024 No evidence of a pul monary embolism. MACRO: None. Signed by: Dar Lisa 09/14/2024 1:24 PM Dictation workstation: [id number] Interpreted By: Dar Eckert, STUDY: CT ANGIO CHEST FOR PULMONARY EMBOLISM; 09/14/2024 1:17 pm INDICATION: Signs/Symptoms:left rib pain, pleuritic pain. COMPARISON: None. ACCESSION NUMBER(S): [id number] ORDERING CLINICIAN: ANGELA BALTAZAR TECHNIQUE: Helical data [...] pain, pleuritic pain. COMPARISON: None. ACCESSION NUMBER(S): [id number] ORDERING CLINICIAN: ANGELA BALTAZAR TECHNIQUE: Helical data [...] Dar Lisa 09/14/2024 1:24 PM Dictation workstation: [id number] [facility] Work Phone: Radiology Study observation (narrative) [facility] Work Phone: CT Chest W contrast IV and C T angiogram Pulmonary arteries for pulmonary embolus W contrast IVOrdered By: Dar Lisa on 09-14-2024 [facility] Work Phone: Coagulation surface inducedo n 09-14-2024 aPTT Coag (PPP) [Time] 36 s Normal 26-36 [facility] Comment on above: Order Comment: The A PTT is no longer used for monitoring Unfractionated Heparin Therapy. For monitoring Heparin Therapy, use the Heparin Assay. Performed By: #### 1 4979-9 #### LOVE RODNEY ([id number]) [facility] ([facility]) [address] [place] [address] Coagulation tissue factor in ducedon 09-14-2024 PT Coag (PPP) [Time] 12.1 s Normal 9.8-12.4 [facility] Comment on above: Performed By: #### 5 902-2 #### LOVE RODNEY ([id number]) [facility] ([facility]) [address] [place] [id number] Comprehensive metabolic 2000 panelon 09-14-2024 Albumin BCP dye [Mass/Vol] 4.2 g/dL 3.4 - 5.0 g/dL [facility] ALP [Catalytic activity/Vol] 91 U/L 33 - 110 U/L [facility] ALT With P-5'-P [Catalytic activity/Vol] 20 U/L 7 - 45 U/L [facility] Comment on above: Patients treated wit h Sulfasalazine may generate falsely decreased results for ALT. Anion gap [Moles/Vol] 14 mmol/L 10 - 20 mmol/L [facility] AST With P-5'-P [Catalytic activity/Vol] 24 U/L 9 - 39 U/L [facility] Comment on above: MILD HEMOLYSIS DETEC VAZQUEZ. The result may be falsely elevated due to hemolysis or other interferents. Clinical correlation is recommended. Repeat testing may be considered. Bilirubin [Mass/Vol] 0.7 mg/dL 0.0 - 1.2 mg/dL [facility] Calcium [Mass/Vol] 9.3 mg/dL 8.6 - 10. 3 mg/dL [facility] Chloride [Moles/Vol] 105 mmol/L 98 - 107 mmol/L [facility] CO2 [Moles/Vol] 23 mmol/L 21 - 32 mmol/L [facility] Creatinine [Mass/Vol] 0.65 mg/dL 0.50 - 1.05 mg/dL [facility] eGFR - PINF [facility] Comment on above: Calculations of amee mated GFR are performed using the 2020 CKD-EPI Study Refit equation without the race variable for the IDMS-Traceable creatinine methods. https://jasn.asnjournals.org/content//ASN.13047600 88 Glucose [Mass/Vol] 95 mg/dL 74 - 99 mg/dL [facility] Potassium [Moles/Vol] 4.8 mmol/L 3.5 - 5.3 mmol/L [facility] Comment on above: MILD HEMOLYSIS DETEC VAZQUEZ. The result may be falsely elevated due to hemolysis or other interferents. Clinical correlation is recommended. Repeat testing may be considered. Protein [Mass/Vol] 6.7 g/dL 6.4 - 8.2 g/dL [facility] Sodium [Moles/Vol] 137 mmol/L 136 - 145 mmol/L [facility] Urea nitrogen [Mass/Vol] 10 mg/dL 6 - 23 mg/dL [facility] Albumin BCP dye [Mass/Vol] 4.2 g/dL Normal 3.4-5.0 [facility] Comment on above: Performed By: #### 2 4323-8 #### KATE STEVENS ([id number]) [facility] ([facility]) [facility] [place] [address] ALP [Catalytic activity/Vol] 91 U/L Normal 33-110 [facility] Comment on above: Performed By: #### 2 4323-8 #### KATE STEVENS ([id number]) [facility] ([facility]) [address] [place] [address] 64822 ALT With P-5'-P [Catalytic activity/Vol] 20 U/L Normal 7-45 [facility] Comment on above: Result Comment: Rosa ents treated with Sulfasalazine may generate falsely decreased results for ALT. Performed By: #### 2 4323-8 #### KATE STEVENS ([id number]) [facility] ([facility]) [address] [place] [address] Anion gap [Moles/Vol] 14 mmol/L Normal 10-20 [facility] Comment on above: Performed By: #### 2 4323-8 #### KATE STEVENS ([id number]) [facility] ([facility]) [facility] [place] [address] AST With P-5'-P [Catalytic activity/Vol] 24 U/L Normal 9-39 [facility] Comment on above: Result Comment: MILD HEMOLYSIS DETECTED. The result may be falsely elevated due to hemolysis or other interferents. Clinical correlation is recommended. Repeat testing may be considered. Performed By: #### 2 4323-8 #### KATE STEVENS ([id number]) [facility] ([facility]) [address] [place] [address] 90282 Bilirubin [Mass/Vol] 0.7 mg/dL Normal 0.0-1.2 [facility] Comment on above: Performed By: #### 2 4323-8 #### KATE STEVENS ([id number]) [facility] ([facility]) [address] [place] [address] 31497 Calcium [Mass/Vol] 9.3 mg/dL Normal 8.6-10.3 [facility] Comment on above: Performed By: #### 2 4323-8 #### KATE STEVENS ([id number]) [facility] ([facility]) [address] [place] [address] 84093 Chloride [Moles/Vol] 105 mmol/L Normal 98-107 [facility] Comment on above: Performed By: #### 2 4323-8 #### KATE STEVENS ([id number]) [facility] ([facility]) [address] [place] [address] 03751 CO2 [Moles/Vol] 23 mmol/L Normal 21-32 [facility] Comment on above: Performed By: #### 2 4323-8 #### KATE STEVENS ([id number]) [facility] ([facility]) [address] [place] [address] 31584 Creatinine [Mass/Vol] 0.65 mg/dL Normal 0.50-1.05 [facility] Comment on above: Performed By: #### 2 4323-8 #### KATE STEVENS ([id number]) [facility] ([facility]) [address] [place] [address] 95684 GFR/1.73 sq M.predicted MDRD (S/P/Bld) [Vol rate/Area] mL/min/{1.73_m2} Normal >60 [facility] Comment on above: Result Comment: Calc ulations of estimated GFR are performed using the 2020 CKD-EPI Study Refit equation without the race variable for the IDMS-Traceable creatinine methods. https://jasn.asnjournals.org/content//ASN.41391684 88 Performed By: #### 2 4323-8 #### KATE STEVENS ([id number]) [facility] ([facility]) [address] [place] [address] 77547 Glucose [Mass/Vol] 95 mg/dL Normal 74-99 [facility] Comment on above: Performed By: #### 2 4323-8 #### KATE STEVENS ([id number]) [facility] ([facility]) [address] [place] [address] 34532 Potassium [Moles/Vol] 4.8 mmol/L Normal 3.5-5.3 [facility] Comment on above: Result Comment: MILD HEMOLYSIS DETECTED. The result may be falsely elevated due to hemolysis or other interferents. Clinical correlation is recommended. Repeat testing may be considered. Performed By: #### 2 4323-8 #### KATE STEVENS ([id number]) [facility] ([facility]) [address] [place] [address] 07386 Protein [Mass/Vol] 6.7 g/dL Normal 6.4-8.2 [facility] Comment on above: Performed By: #### 2 4323-8 #### KATE STEVENS ([id number]) [facility] ([facility]) [address] [place] [address] 22535 Sodium [Moles/Vol] 137 mmol/L Normal 136-145 [facility] Comment on above: Performed By: #### 2 4323-8 #### KATE STEVENS ([id number]) [facility] ([facility]) [address] [place] [address] 45921 Urea nitrogen [Mass/Vol] 10 mg/dL Normal 6-23 [facility] Comment on above: Performed By: #### 2 4323-8 #### KATE STEVENS ([id number]) [facility] ([facility]) [address] [place] [address] D-Dimer, VTE Exclusionon Fibrin D-dimer FEU (PPP) [Mass/Vol] 891 High NINF [facility] ECG 12-LEADon 09-14-2024 ECG 12-LEAD Ventricular Rate 88 Atrial Rate 88 P-R Interval 126 QRS Duration 82 Q-T Interval 380 QTC Calculation(Bazett) 459 P Parlin 58 R Parlin 35 T Parlin 46 QRS Count 15 Q Onset 220 P Onset 157 P Offset 215 T Offset 410 QTC Fredericia 431 Diagnosis Normal sinus rhythm Normal ECG No previous ECGs available See ED provider note for full interpretation and clinical correlation Confirmed by Angela Stallings ([id number]) on 09/16/2024 6:34:33 PM Normal [facility] Fibrin D-dimer FEUon 025 Fibrin D-dimer FEU (PPP) [Mass/Vol] 891 ng/mL FEU High <=500 [facility] Comment on above: Order Comment: The V TE Exclusion D-Dimer assay is reported in ng/mL Fibrinogen Equivalent Units (FEU). Per ammunition storekeeper's instructions for use, a value of less [...] By: #### 4 8065-7 #### LOVE RODNEY ([id number]) [facility] ([facility]) [address] [place] [address] Fibrin D-dimer FEU (PPP) [Ma ss/Vol]on 09-14-2024 Interpretation and review of laboratory results Abnormal [facility] The VTE Exclusion D- Dimer assay is reported in ng/mL Fibrinogen Equivalent Units (FEU). Per ammunition storekeeper's instructions for use, a value of less [...] assessment model for DVT or PE exclusion.) [facility] Magnesiumon 09-14-2024 Magnesium [Mass/Vol] 1.96 mg/dL 1.60 - 2.40 mg/dL [facility] Magnesium [Mass/Vol] 1.96 mg/dL Normal 1.60-2.40 [facility] Comment on above: Performed By: #### 1 9123-9 #### KATE STEVENS ([id number]) [facility] ([facility]) [facility] [place] [address] No Panel Informationon 09-14 Interpretation and review of laboratory results Normal [facility] Interpretation and review of laboratory results Normal [facility] PT Coag (PPP) [Time]on 09-14 INR Coag (PPP) [Relative time] 1.1 {INR} 0.9 - 1.1 [facility] INR Coag (PPP) [Relative time] 1.1 Normal 0.9-1.1 [facility] Comment on above: Performed By: #### 5 902-2 #### KATE STEVENS ([id number]) [facility] ([facility]) [address] [place] [address] Protime-INRon 09-14-2024 PT Coag (PPP) [Time] 12.1 s [facility] Tropinin I.cardiac panel Hig h sensitivity methodon 09-14-2024 Interpretation and review of laboratory results Normal [facility] Less than 99th perce ntile of normal [...] performed using a different testing methodology at [facility] than at other [facility]. Direct result comparisons should only be made within the same method. [facility] Interpretation and review of laboratory results Normal [facility] Less than 99th perce ntile of normal [...] performed using a different testing methodology at [facility] than at other [facility]. Direct result comparisons should only be made within the same method. [facility] Troponin I, High Sensitivity , Initialon 09-14-2024 Tropinin I.cardiac panel High sensitivity method 3 ng/L 0 - 13 ng/L [facility] Troponin I.cardiac panelon 0 09-14-2024 Tropinin I.cardiac panel High sensitivity method 4 ng/L Normal 0-13 [facility] Comment on above: Order Comment: Less than [...] is performed using a differenttesting methodology at [facility] than at [facility]. Direct result comparisons should onlybe made within the same method. Performed By: #### 8 9577-1 ####KATE STEVENS ([id number])[facility] ([facility] [place] [id number] Tropinin I.cardiac panel High sensitivity method 3 ng/L Normal 0-13 [facility] Comment on above: Order Comment: Less than [...] performed using a different testing methodology at [facility] than at [facility]. Direct result comparisons should only be made within the same method. Performed By: #### 8 9577-1 #### KATE STEVENS ([id number]) [facility] ([facility]) [facility] [place] [phone] Troponin, High Sensitivity, 1 Houron 09-14-2024 Tropinin I.cardiac panel High sensitivity method 4 ng/L 0 - 13 ng/L [facility] XR RIBS 2 VIEWS LEFT WITH CH EST PA OR APon 09-14-2024 XR RIBS 2 VIEWS LEFT WITH CHEST PA OR AP Interpreted By: Lele Hernandez, STUDY: XR RIBS 2 VIEWS LEFT WITH CHEST PA OR AP; ; 09/14/2024 12:14 pm INDICATION: Signs/Symptoms:left sided rib pain. COMPARISON: January 30, 2021 CT abdomen and pelvis ACCESSION NUMBER(S): [id number] ORDERING CLINICIAN: ANGELA BALTAZAR FINDINGS: Five views [...] Lele Hernandez 09/14/2024 12:20 PM Dictation workstation: [id number] [facility] XR Ribs Views and Chest PAon 09-14-2024 No acute significant abnormality. Scattered likely postinflammatory calcifications. MACRO: None Signed by: Lele Hernandez 09/14/2024 12:20 PM Dictation workstation: [id number] [facility]AL Interpreted By: Lele Trammell, STUDY: XR RIBS 2 VIEWS LEFT WITH CHEST PA OR AP; ; 09/14/2024 12:14 pm INDICATION: Signs/Symptoms:left sided rib pain. COMPARISON: January 30, 2021 CT abdomen and pelvis ACCESSION NUMBER(S): [id number] ORDERING CLINICIAN: ANGELA BALTAZAR FINDINGS: Five views [...] 2021 CT abdomen and pelvis ACCESSION NUMBER(S): [id number] ORDERING CLINICIAN: ANGELA BALTAZAR FINDINGS: Five views [...] Lele Hernandez 09/14/2024 12:20 PM Dictation workstation: [id number] [facility] Work Phone: Radiology Study observation (narrative) [facility] Work Phone: XR Ribs Views and Chest PAOr dered By: Lele Hernandez on 09-14-2024 [facility] Work Phone: aPTTon 09-14-2024 aPTT Coag (PPP) [Time] 36 s [facility] aPTT Coag (PPP) [Time]on The APTT is no longe r used for monitoring Unfractionated Heparin Therapy. For monitoring Heparin Therapy, use the Heparin Assay. [facility] MR LUMBAR SPINE W AND WO IV CONTRASTon 06-19-2024 MR LUMBAR SPINE W AND WO IV CONTRAST Interpreted By: Davis Jacome, STUDY: MR LUMBAR SPINE W AND WO IV CONTRAST; ; 06/19/2024 2:17 pm INDICATION: Signs/Symptoms:leg ache. ,M54.16 Radiculopathy, lumbar region,M96.1 Postlaminectomy syndrome, not elsewhere classified COMPARISON: MRI of the lumbar spine from 11/23/2013. ACCESSION NUMBER(S): [id number] ORDERING CLINICIAN: CARLOS DORMAN TECHNIQUE: MRI of [...] at L5-S1. This study was interpreted at [facility]. MACRO: None Signed by: Davis Jacome 06/19/2024 2:50 PM Dictation workstation: [id number] [facility] MR Lumbar spine WO and W con trast Adriel 06-19-2024 Degenerative changes , most pronounced at L4-L5 and L5-S1 as detailed above. There is no striking spinal canal stenosis at any level. There is a small annular fissure within the L4-L5 intervertebral disc and there is moderate bilateral neural foraminal narrowing at L5-S1. This study was interpreted at [facility]. MACRO: None Signed by: Davis Jacome 06/19/2024 2:50 PM Dictation workstation: [id number] [facility]ODAL Interpreted By: Davis Ferraro, STUDY: MR LUMBAR SPINE W AND WO IV CONTRAST; ; 06/19/2024 2:17 pm INDICATION: Signs/Symptoms:leg ache. ,M54.16 Radiculopathy, lumbar region,M96.1 Postlaminectomy syndrome, not elsewhere classified COMPARISON: MRI of the lumbar spine from 11/23/2013. ACCESSION NUMBER(S): [id number] ORDERING CLINICIAN: CARLOS DORMAN TECHNIQUE: MRI of [...] the lumbar spine from 11/23/2013. ACCESSION NUMBER(S): [id number] ORDERING CLINICIAN: CARLOS DORMAN TECHNIQUE: MRI of [...] at L5-S1. This study was interpreted at [facility]. MACRO: None Signed by: Davis Jacome 06/19/2024 2:50 PM Dictation workstation: [id number] [facility] Work Phone: Radiology Study observation (narrative) [facility] Work Phone: MR Lumbar spine WO and W con trast IVOrdered By: Davis Jacome on 06-19-2024 [facility] Work Phone: Comprehensive metabolic 2000 panelon 02-14-2024 Albumin BCP dye [Mass/Vol] 4.1 g/dL Normal 3.4-5.0 [facility] Comment on above: Performed By: #### 2 4323-8 #### KATE STEVENS ([id number]) [facility] ([facility]) [facility] [place] [phone] ALP [Catalytic activity/Vol] 88 U/L Normal 33-110 [facility] Comment on above: Performed By: #### 2 4323-8 #### KATE STEVENS ([id number]) [facility] ([facility]) [address] [place] [address] 59160 ALT With P-5'-P [Catalytic activity/Vol] 32 U/L Normal 7-45 [facility] Comment on above: Result Comment: Rosa ents treated with Sulfasalazine may generate falsely decreased results for ALT. Performed By: #### 2 4323-8 #### KATE STEVENS ([id number]) [facility] ([facility]) [address] [place] [address] Anion gap [Moles/Vol] 12 mmol/L Normal 10-20 [facility] Comment on above: Performed By: #### 2 4323-8 #### KATE STEVENS ([id number]) [facility] ([facility]) [address] [place] [address] 00210 AST With P-5'-P [Catalytic activity/Vol] 26 U/L Normal 9-39 [facility] Comment on above: Performed By: #### 2 4323-8 #### KATE STEVENS ([id number]) [facility] ([facility]) [address] [place] [address] 02814 Bilirubin [Mass/Vol] 0.4 mg/dL Normal 0.0-1.2 [facility] Comment on above: Performed By: #### 2 432-8 #### KATE STEVENS ([id number]) [facility] ([facility]) [address] [place] [address] Calcium [Mass/Vol] 9.1 mg/dL Normal 8.6-10.3 [facility] Comment on above: Performed By: #### 2 432-8 #### KATE STEVENS ([id number]) [facility] ([facility]) [address] [place] [address] Chloride [Moles/Vol] 107 mmol/L Normal 98-107 [facility] Comment on above: Performed By: #### 2 4323-8 #### KATE STEVENS ([id number]) [facility] ([facility]) [address] [place] [address] CO2 [Moles/Vol] 24 mmol/L Normal 21-32 [facility] Comment on above: Performed By: #### 2 4323-8 #### KATE STEVENS ([id number]) [facility] ([facility]) [address] [place] [address] Creatinine [Mass/Vol] 0.75 mg/dL Normal 0.50-1.05 [facility] Comment on above: Performed By: #### 2 4323-8 #### KATE STEVENS ([id number]) [facility] ([facility]) [address] [place] [address] 21014 GFR/1.73 sq M.predicted MDRD (S/P/Bld) [Vol rate/Area] mL/min/{1.73_m2} Normal >60 [facility] Comment on above: Result Comment: Calc ulations of estimated GFR are performed using the 2020 CKD-EPI Study Refit equation without the race variable for the IDMS-Traceable creatinine methods. https://jasn.asnjournals.org/content//ASN.82852663 88 Performed By: #### 2 4323-8 #### KATE STEVENS ([id number]) [facility] ([facility]) [address] [place] [address] 21484 Glucose [Mass/Vol] 80 mg/dL Normal 74-99 [facility] Comment on above: Performed By: #### 2 4323-8 #### KATE STEVENS ([id number]) [facility] ([facility]) [address] [place] [address] 64174 Potassium [Moles/Vol] 4.2 mmol/L Normal 3.5-5.3 [facility] Comment on above: Performed By: #### 2 4323-8 #### KATE STEVENS ([id number]) [facility] ([facility]) [address] [place] [address] 61937 Protein [Mass/Vol] 6.7 g/dL Normal 6.4-8.2 [facility] Comment on above: Performed By: #### 2 4323-8 #### KATE STEVENS ([id number]) [facility] ([facility]) [address] [place] [address] 32456 Sodium [Moles/Vol] 139 mmol/L Normal 136-145 [facility] Comment on above: Performed By: #### 2 4323-8 #### KATE STEVENS ([id number]) [facility] ([facility]) [address] [place] [address] Urea nitrogen [Mass/Vol] 18 mg/dL Normal 6-23 [facility] Comment on above: Performed By: #### 2 4323-8 #### KATE STEVENS ([id number]) [facility] ([facility]) [address] [place] [address] HbA1c (Bld) [Mass fraction]o n 02-14-2024 Average glucose Estimated from glycated hemoglobin (Bld) [Mass/Vol] 114 mg/dL Normal Not Established [facility] Comment on above: Order Comment: Diagn osis of Ndzidqqu-BgnifpVmq-Rrncvhcp: < or = 5.6%Increased risk for developing diabetes: 5.7-6.4%Diagnostic of diabetes: > or = 6.5% Performed By: #### 2 4323-8 #### KATE STEVENS ([id number]) [facility] ([facility]) [facility] [place] [address] Hemoglobin A1c/Hemoglobin.to evelyn 02-14-2024 HbA1c (Bld) [Mass fraction] 5.6 % Normal see below [facility] Comment on above: Order Comment: Diagn osis of Xairgquv-WvqujfJjk-Vzmsydgw: < or = 5.6%Increased risk for developing diabetes: 5.7-6.4%Diagnostic of diabetes: > or = 6.5% Performed By: #### 2 4323-8 #### KATE STEVENS ([id number]) [facility] ([facility]) [address] [place], [place] [id number] Lipid 1996 panelon 4 Cholesterol [Mass/Vol] 151 mg/dL Normal 0-199 [facility] Comment on above: Result Comment: [...] By: #### 2 4331-1 #### KATE STEVENS (78353) [facility] ([facility]) [address] [place] [address] 12497 Cholesterol in HDL [Mass/Vol] 63.0 mg/dL Normal [facility] Comment on above: Result Comment: Age Very Low Low Normal High 0-19 Y < 35 < 40 40-45 ---- 20-24 Y ---- < 40 >45 ---- >24 Y ---- < 40 40-60 >60 Performed By: #### 2 4331-1 #### KATE STEVENS ([id number]) [facility] ([facility]) [address] [place] [address] 96408 Cholesterol in LDL [Mass/Vol] 76 mg/dL Normal <=99 [facility] Comment on above: Result Comment: Near Borderline AGE Desirable Optimal High High Very High 0-19 Y 0 - 109 --- 110-129 >/= 130 ---- 20-24 Y 0 - 119 --- 120-159 >/= 160 ---- >24 Y 0 - 99 100-129 130-159 160-189 >/=190 Performed By: #### 2 4331-1 #### KATE STEVENS ([id number]) [facility] ([facility]) [address] [place] [address] 00637 Cholesterol in VLDL [Mass/Vol] 12 mg/dL Normal 0-40 [facility] Comment on above: Performed By: #### 2 4331-1 #### KATE STEVENS ([id number]) [facility] ([facility]) [address] [place] [address] 87142 CHOLESTEROL/HDL RATIO 2.4 Normal [facility] Comment on above: Result Comment: Ref Values Desirable < 3.4 High Risk > 5.0 Performed By: #### 2 4331-1 #### KATE STEVENS ([id number]) [facility] ([facility]) [address] [place] [address] 71191 NON HDL CHOLESTEROL 88 mg/dL Normal 0-149 [facility] Comment on above: Result Comment: Age Desirable Borderline High High Very High 0-19 Y 0 - 119 120 - 144 >/= 145 >/= 160 20-24 Y 0 - 149 150 - 189 >/= 190 ---- >24 Y 30 mg/dL above LDL Cholesterol goal Performed By: #### 2 4331-1 #### KATE STEVENS ([id number]) [facility] ([facility]) [address] [place] [address] Triglyceride [Mass/Vol] 61 mg/dL Normal 0-149 [facility] Comment on above: Result Comment: [...] By: #### 2 4331-1 #### KATE STEVENS ([id number]) [facility] ([facility]) [address] [place] [address] TSH WITH REFLEX TO FREE T4 I F ABNORMALon 02-14-2024 TSH Qn 1.45 m[IU]/L Normal 0.44-3.98 [facility] Comment on above: Order Comment: TSH t esting is performed using different testing methodology at [facility] than at other [facility]. Direct result comparisons should only be made within the same method. Performed By: #### 2 4323-8 #### KATE STEVENS ([id number]) [facility] ([facility]) [address] [place], [place] [id number] BI MAMMO BILATERAL SCREENING TOMOSYNTHESISon 01-20-2024 BI MAMMO BILATERAL SCREENING TOMOSYNTHESIS Interpreted By: Xavi Chavarria, STUDY: BI MAMMO BILATERAL SCREENING TOMOSYNTHESIS; 01/20/2024 9:12 am ACCESSION NUMBER(S): [id number] ORDERING CLINICIAN: LAN DAWN INDICATION: Screening. COMPARISON: [...] Xavi Chavarria 01/20/2024 11:24 AM Dictation workstation: [id number] [facility] DBT Breast - bilateralon No mammographic evid ence of malignancy. BI-RADS CATEGORY: BI-RADS Category: 2 Benign. Recommendation: Routine Screening Mammogram in 1 Year. Recommended Date: 1 Year. Laterality: Bilateral. MACRO: None Signed by: Xavi Chavarria 01/20/2024 11:24 AM Dictation workstation: [id number] Interpreted By: Xavi Saldivar, STUDY: BI MAMMO BILATERAL SCREENING TOMOSYNTHESIS; 01/20/2024 9:12 am ACCESSION NUMBER(S): [id number] ORDERING CLINICIAN: LAN DAWN INDICATION: Screening. COMPARISON: [...] SCREENING TOMOSYNTHESIS; 01/20/2024 9:12 am ACCESSION NUMBER(S): [id number] ORDERING CLINICIAN: LAN DAWN INDICATION: Screening. COMPARISON: [...] Xavi Chavarria 01/20/2024 11:24 AM Dictation workstation: [id number] [facility] Work Phone: Radiology Study observation (narrative) [facility] Work Phone: DBT Breast - bilateralOrdere d By: Xavi Chavarria on 01-20-2024 [facility] Work Phone: XR Knee - bilateral 3 Viewso n 07-30-2023 Interpreted By: Raquel Black ud, STUDY: XR KNEE 3 VIEWS BILATERAL; 07/29/2023 5:39 pm INDICATION: Signs/Symptoms:Pain. COMPARISON: none ACCESSION NUMBER(S): [id number] ORDERING CLINICIAN: CARLOS DORMAN FINDINGS: Three views bilateral knees. Bilateral knee Mild tricompartment productive degenerative changes. Degenerative changes predominantly involving the medial compartment. No fracture or dislocation. No osseous lesion. No sizable effusion bilaterally. IMPRESSION Bilateral knee Mild tricompartment productive degenerative changes. Degenerative changes predominantly involving the medial compartment. MACRO none Signed by: Raquel Flores 07/30/2023 10:16 AM Dictation workstation: [id number] Kelsie Flores MD - 07/30/2023 Interpreted By: Raquel Flores, STUDY: XR KNEE 3 VIEWS BILATERAL; 07/29/2023 5:39 pm INDICATION: Signs/Symptoms:Pain. COMPARISON: none ACCESSION NUMBER(S): [id number] ORDERING CLINICIAN: CARLOS DORMAN FINDINGS: Three views bilateral knees. Bilateral knee Mild tricompartment productive degenerative changes. Degenerative changes predominantly involving the medial compartment. No fracture or dislocation. No osseous lesion. No sizable effusion bilaterally. IMPRESSION Bilateral knee Mild tricompartment productive degenerative changes. Degenerative changes predominantly involving the medial compartment. MACRO none Signed by: Raquel Flores 07/30/2023 10:16 AM Dictation workstation: [id number] [facility] Work Phone: XR Knee - bilateral 3 ViewsO rdered By: Kelsie Flores on 07-30-2023 [facility] Work Phone: XR Knee - bilateral 3 Viewso n 07-29-2023 Radiology Study observation (narrative) [facility] Work Phone: XR Wrist - right 3 Viewson 0 07-02-2023 No acute findings. MACRO: None Signed by: Sage Carcamo 07/02/2023 10:23 AM Dictation workstation: [id number] [facility] Interpreted By: Sage Martinez, STUDY: XR WRIST RIGHT 3+ VIEWS; 07/01/2023 8:18 am INDICATION: Signs/Symptoms:PAIN. COMPARISON: None. ACCESSION NUMBER(S): [id number] ORDERING CLINICIAN: WENDY RODRIGUEZ FINDINGS: Bony structures: Intact Joint spaces: Maintained Soft tissues: Unremarkable without significant edema or radiodense foreign body Other: None significant [facility] Sage Carcamo MD - 07/02/2023 Interpreted By: Sage Carcamo, STUDY: XR WRIST RIGHT 3+ VIEWS; 07/01/2023 8:18 am INDICATION: Signs/Symptoms:PAIN. COMPARISON: None. ACCESSION NUMBER(S): [id number] ORDERING CLINICIAN: WENDY RODRIGUEZ FINDINGS: Bony structures: Intact Joint spaces: Maintained Soft tissues: Unremarkable without significant edema or radiodense foreign body Other: None significant IMPRESSION: No acute findings. MACRO: None Signed by: Sage Carcamo 07/02/2023 10:23 AM Dictation workstation: [id number] [facility] Work Phone: XR Wrist - right 3 ViewsOrde red By: Sage Carcamo on 07-02-2023 [facility] Work Phone: XR Wrist - right 3 Viewson 0 07-01-2023 Radiology Study observation (narrative) [facility] Work Phone: CBC W Auto Differential pane l (Bld)on 06-10-2023 Basophils (Bld) [#/Vol] 0.04 x10*3/uL Normal 0.00-0.10 [facility] Comment on above: Performed By: #### 5 7021-8 #### KATE STEVENS ([id number]) [facility] ([facility]) [address] [place] [address] 13249 Basophils/100 WBC (Bld) 0.5 % Normal 0.0-2.0 [facility] Comment on above: Performed By: #### 5 7021-8 #### KATE STEVENS ([id number]) [facility] ([facility]) [address] [place] [address] 44748 Eosinophils (Bld) [#/Vol] 0.12 x10*3/uL Normal 0.00-0.70 [facility] Comment on above: Performed By: #### 5 7021-8 #### KATE STEVENS ([id number]) [facility] ([facility]) [address] [place] [address] 23576 Eosinophils/100 WBC (Bld) 1.6 % Normal 0.0-6.0 [facility] Comment on above: Performed By: #### 5 7021-8 #### KATE STEVENS ([id number]) [facility] ([facility]) [address] [place] [address] 21576 Erythrocyte distribution width (RBC) [Ratio] 13.2 % Normal 11.5-14.5 [facility] Comment on above: Performed By: #### 5 7021-8 #### KATE STEVENS ([id number]) [facility] ([facility]) [address] [place] [address] 42317 Hematocrit (Bld) [Volume fraction] 42.0 % Normal 36.0-46.0 [facility] Comment on above: Performed By: #### 5 7021-8 #### KATE STEVENS ([id number]) [facility] ([facility]) [address] [place], [place] [id number] Hemoglobin (Bld) [Mass/Vol] 13.1 g/dL Normal 12.0-16.0 [facility] Comment on above: Performed By: #### 5 7021-8 #### KATE STEVENS ([id number]) [facility] ([facility]) [address] [place] [address] 59580 Immature granulocytes (Bld) [#/Vol] 0.02 x10*3/uL Normal 0.00-0.70 [facility] Comment on above: Performed By: #### 5 7021-8 #### KATE STEVENS ([id number]) [facility] ([facility]) [address] [place] [address] 37913 Immature granulocytes/100 WBC (Bld) 0.3 % Normal 0.0-0.9 [facility] Comment on above: Result Comment: Cyndy ture Granulocyte Count (IG) includes promyelocytes, myelocytes and metamyelocytes but does not include bands. Percent differential counts (%) should be interpreted in the context of the absolute cell counts (cells/UL). Performed By: #### 5 7021-8 #### KATE STEVENS ([id number]) [facility] ([facility]) [address] [place] [address] 14265 Lymphocytes (Bld) [#/Vol] 2.49 x10*3/uL Normal 1.20-4.80 [facility] Comment on above: Performed By: #### 5 7021-8 #### KATE STEVENS ([id number]) [facility] ([facility]) [address] [place] [address] 92070 Lymphocytes/100 WBC (Bld) 33.0 % Normal 13.0-44.0 [facility] Comment on above: Performed By: #### 7021-8 #### KATE STEVENS ([id number]) [facility] ([facility]) [address] [place] [address] 65743 MCH (RBC) [Entitic mass] 29.2 pg Normal 26.0-34.0 [facility] Comment on above: Performed By: #### 5 7021-8 #### KATE STEVENS ([id number]) [facility] ([facility]) [address] [place] [address] 29328 MCHC (RBC) [Mass/Vol] 31.2 g/dL Low 32.0-36.0 [facility] Comment on above: Performed By: #### 5 7021-8 #### KATE STEVENS ([id number]) [facility] ([facility]) [address] [place] [address] 70829 MCV (RBC) [Entitic vol] 94 fL Normal 80-100 [facility] Comment on above: Performed By: #### 5 7021-8 #### KATE STEVENS ([id number]) [facility] ([facility]) [address] [place] [address] 36424 Monocytes (Bld) [#/Vol] 0.47 x10*3/uL Normal 0.10-1.00 [facility] Comment on above: Performed By: #### 5 7021-8 #### KATE STEVENS ([id number]) [facility] ([facility]) [address] [place] [address] 84015 Monocytes/100 WBC (Bld) 6.2 % Normal 2.0-10.0 [facility] Comment on above: Performed By: #### 5 7021-8 #### KTAE STEVENS ([id number]) [facility] ([facility]) [address] [place] [address] 94451 Neutrophils (Bld) [#/Vol] 4.41 x10*3/uL Normal 1.20-7.70 [facility] Comment on above: Result Comment: Perc ent differential counts (%) should be interpreted in the context of the absolute cell counts (cells/uL). Performed By: #### 5 7021-8 #### KATE STEVENS ([id number]) [facility] ([facility]) [address] [place] [address] 45725 Neutrophils/100 WBC (Bld) 58.4 % Normal 40.0-80.0 [facility] Comment on above: Performed By: #### 5 7021-8 #### KATE STEVENS ([id number]) [facility] ([facility]) [address] [place], [place] [phone] Nucleated RBC/100 WBC (Bld) [Ratio] 0.0 /100 WBCs Normal 0.0-0.0 [facility] Comment on above: Performed By: #### 5 7021-8 #### KATE STEVENS ([id number]) [facility] ([facility]) [address] [place] [address] 91114 Platelets (Bld) [#/Vol] 358 x10*3/uL Normal 150-450 [facility] Comment on above: Performed By: #### 5 7021-8 #### KATE STEVENS ([id number]) [facility] ([facility]) [address] [place] [address] 08939 RBC (Bld) [#/Vol] 4.48 x10*6/uL Normal 4.00-5.20 [facility] Comment on above: Performed By: #### 5 7021-8 #### KATE STEVENS ([id number]) [facility] ([facility]) [address] [place] [address] 02017 WBC (Bld) [#/Vol] 7.6 x10*3/uL Normal 4.4-11.3 [facility] Comment on above: Performed By: #### 5 7021-8 #### KATE STEVENS ([id number]) [facility] ([facility]) [address] [place] [address] 61169 Calcidiolon 06-10-2023 25-hydroxyvitamin D3 [Mass/Vol] 8 ng/mL Low 30-100 [facility] Comment on above: Order Comment: Defic iency: < 20 ng/ml Insufficiency: 20-29 ng/ml Sufficiency: 30-100 ng/ml This assay accurately quantifies the sum of Vitamin D3, 25-Hydroxy and Vitamin D2,25-Hydroxy. Performed By: #### 1 989-3 #### KATE STEVENS ([id number]) [facility] ([facility]) [address] [place] [address] Cobalaminson 06-10-2023 Cobalamin (Vitamin B12) [Mass/Vol] 273 pg/mL Normal 211-911 [facility] Comment on above: Performed By: #### 2 132-9 #### KATE STEVENS ([id number]) [facility] ([facility]) [address] [place] [address] Comprehensive metabolic 2000 panelon 06-10-2023 Albumin BCP dye [Mass/Vol] 4.2 g/dL Normal 3.4-5.0 [facility] Comment on above: Performed By: #### 2 4323-8 #### KATE STEVENS ([id number]) [facility] ([facility]) [address] [place] [address] ALP [Catalytic activity/Vol] 110 U/L Normal 33-110 [facility] Comment on above: Performed By: #### 2 4323-8 #### KATE STEVENS ([id number]) [facility] ([facility]) [address] [place] [address] 29970 ALT With P-5'-P [Catalytic activity/Vol] 20 U/L Normal 7-45 [facility] Comment on above: Result Comment: Rosa ents treated with Sulfasalazine may generate falsely decreased results for ALT. Performed By: #### 2 4323-8 #### KATE STEVENS ([id number]) [facility] ([facility]) [address] [place] [address] 59810 Anion gap [Moles/Vol] 11 mmol/L Normal 10-20 [facility] Comment on above: Performed By: #### 2 4323-8 #### KATE STEVENS ([id number]) [facility] ([facility]) [address] [place] [address] AST With P-5'-P [Catalytic activity/Vol] 16 U/L Normal 9-39 [facility] Comment on above: Performed By: #### 2 4323-8 #### KATE STEVENS ([id number]) [facility] ([facility]) [address] [place] [address] 82174 Bilirubin [Mass/Vol] 0.5 mg/dL Normal 0.0-1.2 [facility] Comment on above: Performed By: #### 2 4322-8 #### KATE STEVENS ([id number]) [facility] ([facility]) [address] [place] [address] 03220 Calcium [Mass/Vol] 9.1 mg/dL Normal 8.6-10.3 [facility] Comment on above: Performed By: #### 2 4322-8 #### KATE STEVENS ([id number]) [facility] ([facility]) [address] [place] [address] 22052 Chloride [Moles/Vol] 105 mmol/L Normal 98-107 [facility] Comment on above: Performed By: #### 2 432-8 #### KATE STEVENS ([id number]) [facility] ([facility]) [address] [place] [address] CO2 [Moles/Vol] 28 mmol/L Normal 21-32 [facility] Comment on above: Performed By: #### 2 432-8 #### KATE STEVENS ([id number]) [facility] ([facility]) [address] [place] [address] 47883 Creatinine [Mass/Vol] 0.67 mg/dL Normal 0.50-1.05 [facility] Comment on above: Performed By: #### 2 432-8 #### KATE STEVENS ([id number]) [facility] ([facility]) [address] [place] [address] GFR/1.73 sq M.predicted MDRD (S/P/Bld) [Vol rate/Area] mL/min/{1.73_m2} Normal >60 [facility] Comment on above: Result Comment: Calc ulations of estimated GFR are performed using the 2020 CKD-EPI Study Refit equation without the race variable for the IDMS-Traceable creatinine methods. https://jasn.asnjournals.org/content//ASN.27247436 88 Performed By: #### 2 4323-8 #### KATE STEVENS ([id number]) [facility] ([facility]) [address] [place] [address] 46095 Glucose [Mass/Vol] 89 mg/dL Normal 74-99 [facility] Comment on above: Performed By: #### 2 4323-8 #### KATE STEVENS ([id number]) [facility] ([facility]) [address] [place] [address] 71181 Potassium [Moles/Vol] 4.9 mmol/L Normal 3.5-5.3 [facility] Comment on above: Performed By: #### 2 4323-8 #### KATE STEVENS ([id number]) [facility] ([facility]) [address] [place] [address] 20387 Protein [Mass/Vol] 6.5 g/dL Normal 6.4-8.2 [facility] Comment on above: Performed By: #### 2 4323-8 #### KATE STEVENS ([id number]) [facility] ([facility]) [address] [place] [address] 50587 Sodium [Moles/Vol] 139 mmol/L Normal 136-145 [facility] Comment on above: Performed By: #### 2 4323-8 #### KATE STEVENS ([id number]) [facility] ([facility]) [address] [place] [address] 89670 Urea nitrogen [Mass/Vol] 18 mg/dL Normal 6-23 [facility] Comment on above: Performed By: #### 2 4323-8 #### KATE STEVENS ([id number]) [facility] ([facility]) [address] [place] [address] 52898 Ferritinon 06-10-2023 Ferritin [Mass/Vol] 18 ng/mL Normal 8-150 [facility] Comment on above: Performed By: #### 2 276-4 #### KATE STEVENS ([id number]) [facility] ([facility]) [facility] [place] [address] HbA1c (Bld) [Mass fraction]o n 06-10-2023 Average glucose Estimated from glycated hemoglobin (Bld) [Mass/Vol] 114 mg/dL Normal Not Established [facility] Comment on above: Order Comment: Diagn osis of Diabetes-Adults Non-Diabetic: < or = 5.6% Increased risk for developing diabetes: 5.7-6.4% Diagnostic of diabetes: > or = 6.5% Monitoring of Diabetes Age (y)....................... Therapeutic Goal (%) Adults: >18.........................<7.0 Pediatrics: 13-18...................<7.5 Pediatrics: 7-12....................<8.0 Pediatrics: 0-6..................... 7.5-8.5 [employer] [employer]. Diabetes Care 33(S1)Jun 2009 Performed By: #### 4 548-4 #### KATE STEVENS ([id number]) [facility] ([facility]) [facility] [place] [id number] Hemoglobin A1c/Hemoglobin.to evelyn 06-10-2023 HbA1c (Bld) [Mass fraction] 5.6 % Normal see below [facility] Comment on above: Order Comment: Diagn osis of Diabetes-Adults Non-Diabetic: < or = 5.6% Increased risk for developing diabetes: 5.7-6.4% Diagnostic of diabetes: > or = 6.5% Monitoring of Diabetes Age (y)....................... Therapeutic Goal (%) Adults: >18.........................<7.0 Pediatrics: 13-18...................<7.5 Pediatrics: 7-12....................<8.0 Pediatrics: 0-6..................... 7.5-8.5 [employer] [employer]. Diabetes Care 33(S1), Jun 2009 Performed By: #### 4 548-4 #### KATE STEVENS ([id number]) [facility] ([facility]) [address] [place] [address] 99683 Iron and Iron binding capaci ty panelon 06-10-2023 Iron [Mass/Vol] 81 ug/dL Normal 35-150 [facility] Comment on above: Performed By: #### 5 0190-8 #### KATE STEVENS ([id number]) [facility] ([facility]) [address] [place] [address] 61501 Iron binding capacity [Mass/Vol] 472 ug/dL High 240-445 [facility] Comment on above: Performed By: #### 5 0190-8 #### KATE STEVENS ([id number]) [facility] ([facility]) [address] [place] [address] 61341 Iron binding capacity.unsaturate d [Mass/Vol] 391 ug/dL High 110-370 [facility] Comment on above: Performed By: #### 5 0190-8 #### KATE STEVENS (90802) [facility] ([facility]) [address] [place] [address] 55131 Iron saturation [Mass fraction] 17 % Low 25-45 [facility] Comment on above: Performed By: #### 5 0190-8 #### KATE STEVENS (55709) [facility] ([facility]) [address] [place] [address] 06187 Lipid 1996 panelon 01-08-202 4 Cholesterol [Mass/Vol] 170 mg/dL Normal 0-199 [facility] Comment on above: Result Comment: [...] By: #### 2 4331-1 #### KATE STEVENS ([id number]) [facility] ([facility]) [address] [place] [address] 08993 Cholesterol in HDL [Mass/Vol] 74.0 mg/dL Normal [facility] Comment on above: Result Comment: Age Very Low Low Normal High 0-19 Y < 35 < 40 40-45 ---- 20-24 Y ---- < 40 >45 ---- >24 Y ---- < 40 40-60 >60 Performed By: #### 2 4331-1 #### KATE STEVENS ([id number]) [facility] ([facility]) [address] [place] [address] 59218 Cholesterol in LDL [Mass/Vol] 82 mg/dL Normal <=99 [facility] Comment on above: Result Comment: Near Borderline AGE Desirable Optimal High High Very High 0-19 Y 0 - 109 --- 110-129 >/= 130 ---- 20-24 Y 0 - 119 --- 120-159 >/= 160 ---- >24 Y 0 - 99 100-129 130-159 160-189 >/=190 Performed By: #### 2 4331-1 #### KATE STEVENS ([id number]) [facility] ([facility]) [address] [place] [address] 89637 Cholesterol in VLDL [Mass/Vol] 14 mg/dL Normal 0-40 [facility] Comment on above: Performed By: #### 2 4331-1 #### KATE STEVENS ([id number]) [facility] ([facility]) [address] [place] [address] 49184 CHOLESTEROL/HDL RATIO 2.3 Normal [facility] Comment on above: Result Comment: Ref Values Desirable < 3.4 High Risk > 5.0 Performed By: #### 2 4331-1 #### KATE STEVENS ([id number]) [facility] ([facility]) [address] [place] [address] 69663 NON HDL CHOLESTEROL 96 mg/dL Normal 0-149 [facility] Comment on above: Result Comment: Age Desirable Borderline High High Very High 0-19 Y 0 - 119 120 - 144 >/= 145 >/= 160 20-24 Y 0 - 149 150 - 189 >/= 190 ---- >24 Y 30 mg/dL above LDL Cholesterol goal Performed By: #### 2 4331-1 #### KATE STEVENS ([id number]) [facility] ([facility]) [address] [place] [address] 65064 Triglyceride [Mass/Vol] 70 mg/dL Normal 0-149 [facility] Comment on above: Result Comment: [...] By: #### 2 4331-1 #### KATE STEVENS ([id number]) [facility] ([facility]) [address] [place] [address] 32004 TSH WITH REFLEX TO FREE T4 I F ABNORMALon 06-10-2023 TSH Qn 2.28 m[IU]/L Normal 0.44-3.98 [facility] Comment on above: Order Comment: TSH t esting is performed using different testing methodology at [facility] than at other [facility]. Direct result comparisons should only be made within the same method. Performed By: #### T ANGELS #### LOVE RODNEY ([id number]) [facility] ([facility]) [address] [place] [phone] DIGITAL MAMM SCREENING W/ TO Horne 01-17-2023 DIGITAL MAMM SCREENING W/ JUAN Patient Name: DESIREE THORNTON STUDY: Digital mammography screening with juan; 01/17/2023 9:07 am ACCESSION NUMBER(S): [id number] ORDERING CLINICIAN: KEVIN PICKETT INDICATION: Screening. COMPARISON: [...] Screening. 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 COMPARISON: June 27, 2021 ACCESSION NUMBER(S): [id number] ORDERING CLINICIAN: CARLOS DORMAN FINDINGS: Mild lumbar [...] study. Electronically signed by: SUKH KENDALL MD [facility] Post Op (General Surgery)on 05-11-2021 Post [...] May 11 2021 10:28AM EST (Author) Normal [place] Coronavirus 2019 RNA by PCR, Screening Asymptomticon 04-22-2021 Coronavirus 2019 RNA by PCR, Screening Asymptomtic Not detected Normal See Below -[place] [facility] [place] Work Phone: Comment on above: SOURCE: Nasal, [...] make patient management decisions.Fact sheet for providers: https://www.fda.gov/media/476417/downloadFact sheet for patients: https://www.fda.gov/media/411735/downloadThis test has received FDA Emergency Use Authorization (EUA) and has been verified by [facility] ([facility]). This test is only authorized for the duration of time that circumstances exist to justify the authorization of the emergency use of in vitro diagnostic tests for the detection of SARS-CoV-2 virus and/or diagnosis of COVID-19 infection under section 564(b)(1) of the Act, 21 U.S.C. 360bbb-3(b)(1), unless the authorization is terminated or revoked sooner. [facility] is certified under CLIA-88 as qualified to perform high complexity testing. Testing is performed in the [facility] laboratories located at [address] [place] [address]. Hepatic Function Panelon Albumin BCP dye [Mass/Vol] 4.1 g/dL 3.4 - 5.0 [facility] Work Phone: ALP [Catalytic activity/Vol] 78 U/L 33 - 110 [facility] Work Phone: ALT With P-5'-P [Catalytic activity/Vol] 16 U/L 7 - 45 [facility] Work Phone: Comment on above: Patients treated wit h Sulfasalazine may generate falsely decreased results for ALT. AST With P-5'-P [Catalytic activity/Vol] 16 U/L 9 - 39 [facility] Work Phone: Bilirubin [Mass/Vol] 0.5 mg/dL 0.0 - 1.2 [facility] Work Phone: Bilirubin.direct [Mass/Vol] 0.1 mg/dL 0.0 - 0.3 [facility] Work Phone: Protein [Mass/Vol] 7.0 g/dL 6.4 - 8.2 [facility] Work Phone: No Panel Informationon 04-12 [facility] Work Phone: Coronavirus 2019 RNA by PCR, Screening Asymptomticon 04-10-2021 Coronavirus 2019 RNA by PCR, Screening Asymptomtic Not detected Normal See Below [facility] Work Phone: Comment on above: SOURCE: Nasal, [...] make patient management decisions.Fact sheet for providers: https://www.fda.gov/media/913697/downloadFact sheet for patients: https://www.fda.gov/media/144431/downloadThis test has received FDA Emergency Use Authorization (EUA) and has been verified by [facility] ([facility]). This test is only authorized for the duration of time that circumstances exist to justify the authorization of the emergency use of in vitro diagnostic tests for the detection of SARS-CoV-2 virus and/or diagnosis of COVID-19 infection under section 564(b)(1) of the Act, 21 U.S.C. 360bbb-3(b)(1), unless the authorization is terminated or revoked sooner. [facility] is certified under CLIA-88 as qualified to perform high complexity testing. Testing is performed in the [facility] laboratories located at [address] [place] [address]. Initial Visit (General Surge ry)on 02-23-2021 Initial [...] cholecystectomy. 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 Normal [place]iddle Mamm Screen w/CAD if perf ormed bilaton [...] Category 2-Benign findingRecommendation: Normal interval follow-up Normal [facility] XR Sacrum and Coccyx Min 2 [...] by: Hansel Knight MD Technologist: FLORENCIO Normal [facility] XR Spine Lumbar w/ Obliqueso n 05-21-2017 XR Spine Lumbar w/ Obliques Exam Date/Time:05/21/2017 12:07 ESTReason for Exam:[id number] SPINE-5 VIEWSHistory: Back pain.FINDINGS:The lumbar vertebrae are normal in height and alignment. Narrowing of the L5-Z0nwxamopiitrryn disc is present. The pedicles and posterior elements are intact.No facet arthropathy is present. There is no scoliosis.IMPRESSION:Moder ately severe degenerative disc disease at L5-S1. FINAL REPORT Dictated: 05/21/2017 4:45 pm Hansel Knight MDigned (Electronic Signature): 05/21/2017 4:45 pmSigned by: Hansel Knight MD Technologist: FLORENCIO Normal [facility] T3 Totalon 02-22-2017 T3 Total 130 ng/dL Normal 71-180 [facility] Comment on above: Result Comment: Perf ormed At: [address] [place], [place] [id number] Vincent PhD Ph:[phone] Performed By: #### 1 [id number] ####TYSHAWN [employer] Out[employer] [place] [id number] T3 Uptakeon 02-22-2017 T3 Uptake 25 % Normal [facility] Comment on above: Result Comment: No [...] 24 - 39 24 - 39Performed At: [employer] [address] [employer] [place], [place] [id number] Vincent PhD Ph:[phone] Performed By: #### 2 [id number] ####TYSHAWN [employer] [address] [place] [address] Auto Diffon 02-20-2017 Basophils Auto #/vol (Bld) 0.1 E3/mcL Normal 0.0-0.2 [facility] Comment on above: Order Comment: Order Added by Discern Expert. Performed By: #### 2 [id number] ####TYSHAWN LyonEiqSdgk5945 [place] [address] Basophils/100 WBC Auto (Bld) 0.6 % Normal 0.0-2.0 [facility] Comment on above: Order Comment: Order Added by Discern Expert. Performed By: #### 2 [id number] ####TYSHAWN LyonZoqTwdt5466 [place] [address] Eos Absolute 0.2 E3/mcL Normal 0.0-0.7 [facility] Comment on above: Order Comment: Order Added by Discern Expert. Performed By: #### 2 [id number] ####TYSHAWN KbeXttj3798 [place] [address] Eosinophils/100 leukocytes 1.9 % Normal 0.0-11.0 [facility] Comment on above: Order Comment: Order Added by Discern Expert. Performed By: #### 2 904133 ####TYSHAWN LyonTkyEnqz5134 [place] [address] Lymphocytes 3.9 E3/mcL High 1.2-3.4 [facility] Comment on above: Order Comment: Order Added by Discern Expert. Performed By: #### 2 [id number] ####TYSHAWN LyonFgpKstl3294 [place] [address] Lymphocytes/100 leukocytes 40.7 % Normal 20.0-55.0 [facility] Comment on above: Order Comment: Order Added by Discern Expert. Performed By: #### 2 [id number] ####TYSHAWN MylRjop4728 [place] [address] [place] Absolute 0.5 E3/mcL Normal 0.0-0.7 [facility] Comment on above: Order Comment: Order Added by Discern Expert. Performed By: #### 2 929004 ####TYSHAWN LyonTrwCmuu1062 [place] [address] Monocytes/100 leukocytes 5.6 % Normal 0.0-10.0 [facility] Comment on above: Order Comment: Order Added by Discern Expert. Performed By: #### 2 935728 ####TYSHAWN [address] [place] [address] Neutro Absolute 5.0 E3/mcL Normal 1.4-6.5 [facility] Comment on above: Order Comment: Order Added by Discern Expert. Performed By: #### 2 682554 ####TYSHAWN LyonTjyWgcy2271 [place] [address] Neutro Auto 51.2 % Normal 37.0-75.0 [facility] Comment on above: Order Comment: Order Added by Discern Expert. Performed By: #### 2 [id number] ####TYSHAWN [address] [place] [address] CBC w/ Auto Diffon 7 Erythrocyte distribution width Auto Ratio (RBC) 13.2 % Normal 11.5-14.5 [facility] Comment on above: Performed By: #### 2 [id number] ####TYSHAWN LyonJswCdxn4989 [place] [address] Erythrocytes (RBC) 4.34 E6/mcL Normal 3.90-5.40 [facility] Comment on above: Performed By: #### 2 965260 ####TYSHAWN [address] [place] [address] Hematocrit (HCT) 38.9 % Normal 36.0-48.0 [facility] Comment on above: Performed By: #### 2 700563 ####TYSHAWN LyonCivCsxn9926 [place] [address] Hemoglobin mass conc (Bld) 12.7 g/dL Normal 12.0-16.0 [facility] Comment on above: Performed By: #### 2 960872 ####TYSHAWN LyonNjwAkkb4731 [place] [address] MCH 29.3 pg Normal 27.0-31.0 [facility] Comment on above: Performed By: #### 2 538998 ####TYSHAWN [address] [place] [address] MCHC mass conc (RBC) 32.7 g/dL Low 33.0-37.0 [facility] Comment on above: Performed By: #### 2 921605 ####TYSHAWN [address] [place] [address] MCV 89.7 fL Normal 78.0-100.0 [facility] Comment on above: Performed By: #### 2 933029 ####TYSHAWN [address] [place] [address] Platelet mean volume (PMV) 9.0 fL Normal 7.4-11.0 [facility] Comment on above: Performed By: #### 2 722049 ####TYSHAWN [address] [place] [address] Platelets 294 E3/mcL Normal 130-400 [facility] Comment on above: Performed By: #### 2 396306 ####TYSHAWN [address] [place] [address] WBC (Leukocytes) 9.7 E3/mcL Normal 3.6-11.0 [facility] Comment on above: Performed By: #### 2 702927 ####TYSHAWN [address] [place] [address] CMPon 02-20-2017 Alanine aminotransferase (ALT) 15 Int._Unit/L Normal 10-40 [facility] Comment on above: Performed By: #### 2 928614 ####TYSHAWN YogFfdm2182 [place] [address] Albumin 4.3 g/dL Normal 3.2-5.0 [facility] Comment on above: Performed By: #### 2 743953 ####TYSHAWN TqaWyox0266 [place] [address] Albumin/Globulin Ratio 1.4 {ratio} Normal 1.1-1.9 [facility] Comment on above: Performed By: #### 2 465776 ####TYSHAWN KafNyru3618 [place] [address] Alk Phos 103 Int._Unit/L Normal 42-121 [facility] Comment on above: Performed By: #### 2 110391 ####TYSHAWN SpeLult5466 [place] [address] Aspartate aminotransferase (AST) 21 Int._Unit/L Normal 10-42 [facility] Comment on above: Performed By: #### 2 973623 ####TYSHAWN VrwAigu1507 [place] [address] Bili Total 0.6 mg/dL Normal 0.2-1.0 [facility] Comment on above: Performed By: #### 2 992482 ####TYSHAWN OxoMsif3104 [place] [address] BUN/Creatinine Ratio 18.6 ratio Normal 5.4-30.0 [facility] Comment on above: Performed By: #### 2 868420 ####TYSHAWN RqfWulf6218 [place] [address] Creatinine 0.7 mg/dL Normal 0.6-1.3 [facility] Comment on above: Performed By: #### 2 151182 ####TYSHAWNKarina CampbellHpaJuqv3442 [place] [address] Globulin 3.1 g/dL Normal 2.0-4.0 [facility] Comment on above: Performed By: #### 2 044946 ####TYSHAWN HcaKyem3308 [place] [address] Protein 7.4 g/dL Normal 6.4-8.3 [facility] Comment on above: Performed By: #### 2 [id number] ####TYSHAWNKarina CampbellJrlUmyd5190 [place] [address] Urea nitrogen 13 mg/dL Normal 7-18 [facility] Comment on above: Performed By: #### 2 424552 ####TYSHAWNKarina LyonFmnFcza8529 [place] [address] Calcium 9.3 mg/dL Normal 8.4-10.2 [facility] Comment on above: Performed By: #### 2 058208 ####TYSHAWNKarina LyonWmfFzyn2719 [place] [address] Chloride 102 mmol/L Normal 98-107 [facility] Comment on above: Performed By: #### 2 231302 ####TYSHAWN LyonFvpKqkx3330 [place] [address] CO2 25.3 mmol/L Normal 24.0-30.0 [facility] Comment on above: Performed By: #### 2 339041 ####TYSHAWNKarina LyonPorYngb1122 [place] [address] Glucose mass conc 80 mg/dL Normal 70-99 [facility] Comment on above: Performed By: #### 2 665182 ####TYSHAWNKarina LyonZvzWtxt8718 [place] [address] Potassium molar conc 3.8 mmol/L Normal 3.5-5.1 [facility] Comment on above: Performed By: #### 2 049738 ####TYSHAWNKarina CampbellXlqTltv2231 [place] [address] Sodium 134 mmol/L Low 136-145 [facility] Comment on above: Performed By: #### 2 704763 ####TYSHAWNKarina LyonXqfTvgp9507 [place] [address] SohN5lqk 02-20-2017 Hemoglobin A1c/Hemoglobin.tota l mass fraction (Bld) 5.8 % Normal 4.0-6.3 [facility] Comment on above: Performed By: #### 3 [id number] ####TYSHAWN Chemistry Manual L[address]afwedqm2347 [place] [address] Lipid Profileon 02-20-2017 Cholesterol 178 mg/dL Normal 50-200 [facility] Comment on above: Result Comment: TOTA L CHOLEESTEROL: <200 NORMAL 200 - 239 BORDERLINE HIGH >240 HIGH Performed By: #### 3 [id number] ####TYSHAWN LyonGmpCpvz7420 [place] [address] Cholesterol in VLDL mass conc 23 mg/dL Normal [facility] Comment on above: Performed By: #### 3 [id number] ####TYSHAWN LyonPdrZqgs3290 [place] [address] HDL Cholesterol 57 mg/dL Normal >=41 [facility] Comment on above: Performed By: #### 3 [id number] ####TYSHAWN LyonNhtNixn1398 [place] [address] LDL Cholesterol 98 mg/dL Normal 0-130 [facility] Comment on above: Result Comment: <100 [id number] NEAR / ABOVE [id number]- 159 BORDERLINE [id number] HIGH>190 VERY HIGHCALC LDL NOT VALID WHEN TRIGLYCERIDE IS >400 MG/DL Performed By: #### 3 [id number] ####TYSHAWN LyonPamIkht5711 [place] [address] Triglyceride 113 mg/dL Normal 35-150 [facility] Comment on above: Result Comment: <150 [id number] BORDERLINE [id number] HIGH>500 VERY HIGH Performed By: #### 3 [id number] ####TYSHAWN LyonVykPubh0637 [place] [address] T4 Totalon 02-20-2017 T4 5.68 MCG/D Low 6.09-12.23 [facility] Comment on above: Result Comment: Erro neously low T4 results in women could actually be high and mask hyperthyroidism. This test should not be used as the only marker for evaluating patients for thyroid disorders. Performed By: #### 1 [id number] ####TYSHAWN ByhUqep9335 [place] [address] TSHon 02-20-2017 Thyroid stimulating hormone (TSH) 1.76 mIU/m Normal 0.30-5.60 [facility] Comment on above: Performed By: #### 2 [id number] ####TYSHAWN LyonKteUaxv6290 [place] [address] eGFRon 02-20-2017 eGFR (non-black) mL/min/{1.73_m2} Normal [facility] Comment on above: Order Comment: Order added by Discern Expert. Performed By: #### 1 [id number] ####TYSHAWN LyonAqzSzzz3014 [place] [address] Vital Signs Date Time Vital Sign Value Performing Clinician Facility 01-01-2025 13:38-0400 Body height 160.02 cm Chloe Galaviz NP-C Work Phone: [facility] 01-01-2025 13:38-0400 Body mass index (BMI) [Ratio] 33.6 kg/m2 Chloe Galaviz NP-C Work Phone: [facility] 01-01-2025 13:38-0400 Body weight 86.18 kg Chloe Galaviz NP-C Work Phone: [facility] 01-01-2025 13:38-0400 Diastolic blood pressure 81 mm[Hg] Chloe Galaviz SCUBA DIVER-C Work Phone: 7(889)[phone] [place] [address] 01-01-2025 13:38-0400 Heart rate 70 /min Chloe Galaviz [employer]UBA DIVER-C Work Phone: 4(092)[phone] [place] [address] 01-01-2025 13:38-0400 Systolic blood pressure 140 mm[Hg] Chloe Galaviz SCUBA DIVER-C Work Phone: 4(769)[phone] [place] [address] 12-09-2024 10:37-0400 Body height 160 cm Chloe Galaviz WARP HAULER-ASSOCIATE APPLICATION DEVELOPER Work Phone: 9(020)[phone] [place] [address] 12-09-2024 10:37-0400 Body mass index (BMI) [Ratio] 32.1 kg/m2 Chloe Galaviz WARP HAULER-ASSOCIATE APPLICATION DEVELOPER Work Phone: 2(658)[phone] [place] [address] 12-09-2024 10:37-0400 Body weight 82.19 kg Chloe Galaviz WARP HAULER-ASSOCIATE APPLICATION DEVELOPER Work Phone: 7([phone])[phone] [place] [address] 12-09-2024 10:37-0400 Diastolic blood pressure 90 mm[Hg] Chloe Galaviz WARP HAULER-ASSOCIATE APPLICATION DEVELOPER Work Phone: 9(707)[phone] [place] [address] 12-09-2024 10:37-0400 Heart rate 73 /min Chloe Galaviz WARP HAULER-ASSOCIATE APPLICATION DEVELOPER Work Phone: 5(083)[phone] [place] [address] 12-09-2024 10:37-0400 Systolic blood pressure 140 mm[Hg] Chloe Galaviz WARP HAULER-ASSOCIATE APPLICATION DEVELOPER Work Phone: [phone])[phone] [place] [address] 12-01-2024 10:54-0400 Body height 157.5 cm Dorita Lewis CNP Work Phone: [facility] 12-01-2024 10:54-0400 Body mass index (BMI) [Ratio] 36.58 kg/m2 Dorita Lewis CNP Work Phone: [facility] 12-01-2024 10:54-0400 Body weight 90.72 kg Dorita Lewis CNP Work Phone: [facility] 12-01-2024 10:54-0400 Diastolic blood pressure 83 mm[Hg] Dorita Lewis ASSOCIATE APPLICATION DEVELOPER Work Phone: [facility] 12-01-2024 10:54-0400 Heart rate 72 /min Dorita Lewis ASSOCIATE APPLICATION DEVELOPER Work Phone: [facility] 12-01-2024 10:54-0400 Respiratory rate 16 /min Dorita Lewis ASSOCIATE APPLICATION DEVELOPER Work Phone: [facility] 12-01-2024 10:54-0400 SaO2% (BldA) [Mass fraction] 99 % Dorita Lewis ASSOCIATE APPLICATION DEVELOPER Work Phone: [facility] 12-01-2024 10:54-0400 Systolic blood pressure 129 mm[Hg] Dorita Lewis ASSOCIATE APPLICATION DEVELOPER Work Phone: [facility] 09-30-2024 10:18-0400 Diastolic blood pressure 94 mm[Hg] Chloe Galaviz WARP HAULER-ASSOCIATE APPLICATION DEVELOPER Work Phone: [facility] 09-30-2024 10:18-0400 Systolic blood pressure 138 mm[Hg] Chloe Galaviz WARP HAULER-ASSOCIATE APPLICATION DEVELOPER Work Phone: [facility] 09-30-2024 09:06-0400 Body height 160 cm Chloe Galaviz WARP HAULER-ASSOCIATE APPLICATION DEVELOPER Work Phone: [facility] 09-30-2024 09:06-0400 Body mass index (BMI) [Ratio] 33.35 kg/m2 Chloe Galaviz WARP HAULER-ASSOCIATE APPLICATION DEVELOPER Work Phone: [facility] 09-30-2024 09:06-0400 Body weight 85.39 kg Chloe Galaviz WARP HAULER-ASSOCIATE APPLICATION DEVELOPER Work Phone: [facility] 09-30-2024 09:06-0400 Heart rate 78 /min Chloe Galaviz WARP HAULER-ASSOCIATE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 1 1 * Consultation (Routine) - Authorized Specialty Diagnoses / Procedures Referred By Contac t Referred To Contact Nutrition Diagnoses BMI 40.0-44.9, adult (Multi) Lan Dawn DO [address] [facility] [place] [address] Referral ID Status Reason Start Date Expiration Date Visits Requested Visits Authorized [id number] Authorized Specialty Services Required 02/11/2024 02/10/2025 1 1 [facility] Work Phone: Reyavq for referral (narrative)No reason for referral information availableWCleveland Clinic [facility] Work Phone: Reason for visit Narrative* Imaging (Routine) - Authorized Specialty Diagnoses / Procedures Referred By Contac t Referred To Contact Radiology Diagnoses Lumbar radiculopathy Postlaminectomy syndrome, lumbar region Procedures MR lumbar spine w and wo IV contrast Carlos Dorman MD [address] [place] [facility] [address] Phone: tel: fax: Referral ID Status Reason Start Date Expiration Date Visits Requested Visits Authorized [id number] Authorized Perform Procedure 06/10/2024 07/05/2025 1 1 [facility] Work Phone: ReInsightly for visit Narrative* Psychiatric (Routine) - Pending Review Specialty Diagnoses / Procedures Referred By Sahara t Referred To Contact Psychiatry Diagnoses Reactive depression Chloe Galaviz, ASSOCIATE APPLICATION DEVELOPER [address] [facility] [address] [place] [address] Phone: tel: fax: [facility] [address] [place] [address] [address] [place] [address] Phone: tel: fax: Referral ID Status Reason Start Date Expiration Date Visits Requested Visits Authorized [id number] Pending Review Specialty Services Required/Pat ient's Best Interest 10/01/2024 10/01/2025 1 1 [facility] Summary Purpose Family History No Family [...] MD [address] [place] [facility] [address] Referral ID Status Reason Start Date Expiration Date Visits Requested Visits Authorized [id number] Authorized Perform Procedure 07/29/2023 07/28/2024 1 1 Specialty Diagnoses / Procedures Referred By Sahara tang Referred To Contact Radiology Diagnoses Encounter for screening mammogram for malignant neoplasm of breast Procedures BI mammo bilateral screening tomosynthesis Lan Dawn, DO [address] [facility] [address] [facility] [place] [address] Referral ID Status Reason Start Date Expiration Date Visits Requested Visits Authorized [id number] Authorized Perform Procedure 09/16/2023 09/15/2024 1 1 [...] section and content) DATE CREATED AUTHOR 11/26/2017 [facility] DATE CREATED AUTHOR AUTHOR'S ORGANIZ ATION 05/12/2021 [facility] DATE CREATED AUTHOR AUTHOR'S ORGANIZ ATION 01/19/2023 [facility] DATE CREATED AUTHOR AUTHOR'S ORGANIZ ATION 02/19/2024 [facility] DATE CREATED AUTHOR AUTHOR'S ORGANIZ ATION 09/19/2024 [facility] DATE CREATED AUTHOR AUTHOR'S ORGANIZ ATION 09/20/2024 [facility] DATE CREATED AUTHOR AUTHOR'S ORGANIZ ATION 12/03/2024 [facility] DATE CREATED AUTHOR AUTHOR'S ORGANIZ ATION 12/13/2024 [facility] DATE CREATED AUTHOR AUTHOR'S ORGANIZ ATION 01/06/2025 [facility] Reason for Visit (unrecogniz ed section and content) Reason Comments 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 Specialty Diagnoses / Procedures Referred By Sahara tang Referred To Contact Orthopaedic Surgery / Orthopedic Surgery Diagnoses Carpal tunnel syndrome of right wrist Lan Dawn, DO [address] [facility] [place] [address] Referral ID Status Reason Start Date Expiration Date Visits Requested Visits Authorized [id number] Authorized Specialty Services Required 06/07/2023 06/06/2024 1 1 Reason Comments Pain Patient states she h as had bad pain in her wrist for 2 months. Specialty Diagnoses / Procedures Referred By Sahara tang Referred To Contact Radiology Diagnoses Right wrist pain Procedures XR wrist right 3+ views Wendy Rodriguez, WARP HAULER-ASSOCIATE APPLICATION DEVELOPER [address] [facility], [place] [facility] [address] [place] [address] Referral ID Status Reason Start Date Expiration Date Visits Requested Visits Authorized [id number] Authorized Perform Procedure 06/14/2023 06/13/2024 1 1 Specialty Diagnoses / Procedures Referred By Sahara tang Referred To Contact Radiology Diagnoses Unilateral primary osteoarthritis, right knee Procedures XR knee 3 views bilateral XR knees anteroposterior standing bilateral Carlos Dorman MD [address] [facility] [place] [address] Referral ID Status Reason Start Date Expiration Date Visits Requested Visits Authorized [id number] Canceled Perform Procedure 07/29/2023 07/28/2024 1 1 Specialty Diagnoses / Procedures Referred By Contac t Referred To Contact Radiology Diagnoses Bilateral knee pain Procedures XR knee 3 views bilateral Carlos Dorman MD [address] [facility] [place] [address] Referral ID Status Reason Start Date Expiration Date Visits Requested Visits Authorized [id number] Authorized Perform Procedure 07/29/2023 07/28/2024 1 1 Reason Comments Follow-up Patient had EMG done on 07/31/2023. Pain Patient had EMG done on 07/31/2023. Specialty Diagnoses / Procedures Referred By Deweyac t Referred To Contact Orthopaedic Surgery / Orthopedic Surgery Diagnoses Pain in both wrists Carpal tunnel syndrome of right wrist Median nerve dysfunction, left Procedures Follow Up In Orthopaedic Surgery Wendy Rodriguez, WARP HAULER-ASSOCIATE APPLICATION DEVELOPER [address] [facility], [place] [address] Tom Coleman MD [address] [place] [phone] Referral ID Status Reason Start Date Expiration Date V isits Requested Visits Authorized [id number] Authorized 07/01/2023 06/30/2024 1 1 Reason Comments Medicare Annual Wellness Visit Initial + 3 month follow upDenies change in medications Specialty Diagnoses / Procedures Referred By Sahara t Referred To Contact Primary Care Procedures Follow Up In Primary Care - Established Lan Dawn DO [address] [place] [address] [place] [address] Referral ID Status Reason Start Date Expiration Date V isits Requested Visits Authorized [id number] Authorized 06/07/2023 06/06/2024 1 1 Specialty Diagnoses / Procedures Referred By Deweyac t Referred To Contact Radiology Diagnoses Encounter for screening mammogram for malignant neoplasm of breast Procedures BI mammo bilateral screening tomosynthesis Lan Dawn DO [address] [facility] [place] [address] Referral ID Status Reason Start Date Expiration Date Visits Requested Visits Authorized [id number] Authorized Perform Procedure 09/16/2023 09/15/2024 1 1 [...] Rib sprain, initial encounter Angela Baltazar PA-C [address] [place] [address] [place] [address] Phone: tel: fax: Referral ID Status Reason Start Date Expiration Date Visits Requested Visits Authorized [id number] Authorized Specialty Services Required 09/14/2024 09/14/2025 1 1 Reason Comments Follow-up Medicare Annual Wellness Visit Subsequen t 2 Month recheck Medicare Wellness Care Teams (unrecognized sec tion and content) Catering Coordinator Relationship Specialty Start Date End Date Lan Dawn DO [address] [facility] [place] [address] PCP - General Internal Medicine 06/07/23 Catering Coordinator Relationship Specialty Start Date End Date Lan Dawn DO [address] [facility] [place] [address] PCP - General Internal Medicine 06/07/23 Catering Coordinator Relationship Specialty Start Date End Date Lan Dawn DO [address] [facility] [place] [address] PCP - General Internal Medicine 06/07/23 Catering Coordinator Relationship Specialty Start Date End Date Lan Dawn DO [address] [facility] [place] [address] PCP - General Internal Medicine 06/07/23 Catering Coordinator Relationship Specialty Start Date End Date Lan Dawn DO [address] [facility] [place] [address] (Fax) PCP - General Internal Medicine 06/07/23 Catering Coordinator Relationship Specialty Start Date End Date Lan Dawn DO [address] [facility] [place] [address] (Fax) PCP - General Internal Medicine 06/07/23 [...] Attending Provider, Referring Provider Active Dr. Lan Danw , Primary Care Provider Active Catering Coordinator Relationship Specialty Start Date End Date Lan Dawn DO [address] [facility] Physician [place] [phone] (Fax) PCP - General Internal Medicine 06/07/23 Catering Coordinator Relationship Specialty Start Date End Date Lan Dawn DO [address] [facility] [place] [address] (Fax) PCP - General Internal Medicine 06/07/23 Catering Coordinator Relationship Specialty Start Date End Date Lan Dawn DO [address] [facility] [place] [address] (Fax) PCP - General Internal Medicine 06/07/23 Catering Coordinator Relationship Specialty Start Date End Date Lan Dawn DO [address] [facility] [place] [address] PCP - General Internal Medicine 06/07/23 Catering Coordinator Relationship Specialty Start Date End Date Chloe Galaviz APRN-JANEY [address] [place] [address] PCP - General Family Medicine 09/14/24 Catering Coordinator Relationship Specialty Start Date End Date Chloe Galaviz APRN-ASSOCIATE APPLICATION DEVELOPER [address] [address] PCP - General Family Medicine 09/30/24 Carlos Dorman MD [address] [facility] [place] [address] Consulting Physician Pain Medicine 09/30/24 Team Status: [...] October 21, 2024 End: October 21, 2024 Catering Coordinator Relationship Specialty Start Date End Date Kevin Pickett MD PCP - General 09/10/12 Kevin Pickett MD [address] [place] [address] 09/10/12 Catering Coordinator Relationship Specialty Start Date End Date Chloe Galaviz APRN-ASSOCIATE APPLICATION DEVELOPER [address] [address] PCP - General Family Medicine 09/30/24 Carlos Dorman MD [address] [facility] [place] [address] Consulting Physician Pain Medicine 09/30/24 Team Status: [...] BE BASED ON THE PRIMARY CLINICAL RECORDS. [employer] [facility]. provides no warranty or guarantee of the accuracy or completeness of information in this document.
--- NOTE | 2025-01-07 10:00 | PCM.PRE.AN2 ---
ASA Classification* ASA Classification ASA Classification: 2 Assessment & Plan Anesthesia* Anesthesia Assessment Anesthesia Assessment: Discussed sedation and/or anesthesia options, risks, benefits, and alternatives with patient/parents/legal guardian/POA. Questions invited. The patient/parents/legal guardian/POA seems to understand and agrees to proceed with anesthesia plan. Reviewed the physical assessment, medical history, allergy history and patient home medications list prior to surgery/procedure/anesthetic and documented any changes. Performed airway and anesthesia risk assessments. Anesthesia Type Anesthesia Type: General Anesthesia Focused Assessment* Temperature: 98.4 F Pulse Rate: 56 Blood Pressure: 135/81 Respiratory Rate: 16 Pulse Ox: 100 Airway Assessment Mouth opens: >3 cm Mallampati Score: II Labs Anesthesia Preop lab: CBC WBC 10.4 K/mm3 (4.4-11.0) 01/01/25 10:37 01/01/25 RBC 4.62 M/mm3 (4.2-5.4) 01/01/25 10:37 01/01/25 Hgb 13.8 g/dL (12.0-15.0) 01/01/25 10:37 01/01/25 Hct 43.4 % (37-47) 01/01/25 10:37 01/01/25 Plt Count 260 K/mm3 (150-450) 01/01/25 10:37 01/01/25 CHEMISTRY Potassium 5.2 mmol/L (3.3-5.1) H 01/01/25 10:37 01/01/25 Sodium 139 mmol/L (133-145) 01/01/25 10:37 01/01/25 BUN 18 mg/dL (4-19) 01/01/25 10:37 01/01/25 Creatinine 0.68 mg/dL (0.70-1.20) L 01/01/25 10:37 01/01/25 Glucose 104 mg/dL (70-99) H 01/01/25 10:37 01/01/25 COAG Pre-Assessment Diagnosis/Proposed Procedure Planned Operative Procedure(s): LEFT RENAL ESWL Anesthesia History Anesthesia History - mail weigher: Anesthesia History - mail weigher Hx Hospitalization No 12/24/24 08:22 Any Problems With Anesthesia No 12/24/24 08:22 Cholinesterase deficiency No 12/24/24 08:22 You/Your Family Experience No 12/24/24 08:22 fever (hyperthermia) with Relationship Recent Exposure to Contagious No 01/07/25 09:45 Disease Does patient have nerve No 12/24/24 08:22 stimulator Patient instructed to have device shut off --Does patient have Pacemaker No 01/07/25 09:45 or ICD? When Was Last Pacemaker Check QUESTION #4 FULL TEXT: You/Your Family Experience fever (hyperthermia) with Anesthesia Last Oral Intake Last Oral intake: Last Oral Intake NPO since 06:30 01/07/25 09:45 Meds taken in AM with sips of Yes 01/07/25 09:45 water? Meds patient instructed to take am of surgery PONV PONV - mail weigher: PONV - mail weigher Female Yes 12/24/24 08:22 HX of Motion Sickness No 12/24/24 08:22 HX of N/V After Surgery No 12/24/24 08:22 Non-Smoker Yes 12/24/24 08:22 Duration of Surgery greater Yes 12/24/24 08:22 than 60 minutes Number of Risk Factors 3 12/24/24 08:22 PONV Score Moderate Risk 12/24/24 08:22 Height & Weight Height & Weight: Anesthesia: Height & Weight Height 5 ft 2 in 01/07/25 09:45 Weight: 81 kg 01/07/25 09:45 Body Mass Index (BMI) 32.6 01/07/25 09:45 Respiratory Assessment Respiratory Assessment - mail weigher: Respiratory Tract Infection Hx - mail weigher Hx Respiratory Tract Infection No 12/24/24 08:22 STOP Sleep Apnea STOP Sleep Apnea - mail weigher: STOP Sleep Apnea - mail weigher Hx Hypertension No 12/24/24 08:22 Hx Sleep Apnea No 12/24/24 08:22 CPAP BIPAP Do you snore loudly (louder Yes 12/24/24 08:22 than talking or can be heard Do you often feel tired/ No 12/24/24 08:22 fatigued/ sleepy during daytime? Has anyone observed you stop Yes 12/24/24 08:22 breathing during sleep? STOP Results Positive 12/24/24 08:22 QUESTION #5 FULL TEXT : Do you snore loudly (louder than talking or can be heard through closed doors)? 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 Specify any problems Hx of Preganancy in last 3 No 12/24/24 08:22 Months Nurse Filling Out Transfusion [email or web address] 12/24/24 08:22 & Questions: Date: 12/24/24 12/24/24 08:22 Time: 08:12/24/24 08:22 Patient unable to answer at this time (ie. confused, unrespo /Reproduction History /Reproductive History - mail weigher: /Reproductive Hx- mail weigher Hx Now Gestational Age (in weeks): EDC: Hx Hx Para Hx Section SAB Active Medications Active Medications: Current Medications Generic Name Dose Route Start Last Admin Trade Name Freq PRN Reason Stop Dose Admin Lactated Ringer's 1,000 mls @ 15 mls/hr 01/07/25 09:15 01/07/25 09:50 IV 15 mls/hr .Q48H DORIAN Administration Cefazolin Sodium 2 gm/ Sodium 110 mls @ 200 mls/hr 01/07/25 09:30 Chloride IV 01/07/25 10:02 INTRAOP ONE PFSH Medical History Miscarriage UTI (urinary tract infection) Bowel disease Toe fracture Migraines Gestational diabetes Anemia Shoulder blade pain Vitamin D deficiency Stress incontinence Uterine cancer OCD (obsessive compulsive disorder) Wears partial dentures Cancer Schizophrenia Bipolar disorder Depression Anxiety Kidney stones Back pain Restless legs Arthritis Alcohol use History of ulceration Shortness of breath on exertion Former smoker Asthma Leg cramps Home Medications ?Medication ?Instructions ?Recorded ?Last Taken ?Type albuterol sulfate 90 mcg/actuation 2 puff inhalation Q4H PRN 12/24/24 01/06/25 History aerosol inhaler shortness of breath or wheezing budesonide-formoterol HFA 80 2 puff inhalation BID 12/24/24 01/07/25 06:30 History mcg-4.5 mcg/actuation aerosol inhaler (Symbicort) buprenorphine 5 mcg/hour weekly 1 patch topical QWEEK 12/24/24 01/03/25 History transdermal patch cholecalciferol (vitamin D3) 1,250 1,250 mcg PO QWEEK 12/24/24 Unknown History mcg (50,000 unit) capsule epinephrine 0.3 mg/0.3 mL 0.3 ml IM X1 PRN anaphylaxis 12/24/24 Unknown History injection, auto-injector furosemide 20 mg tablet 20 mg PO DAILY 12/24/24 01/06/25 History pramipexole 0.125 mg tablet 0.125 mg PO QHS 12/24/24 Unknown History doxycycline hyclate 100 mg tablet 100 mg PO BID #14 tabs 01/04/25 01/07/25 06:30 Rx Allergy/AdvReac Type Severity Reaction Status Date / Time bee venom protein (honey bee) Allergy Anaphylaxis Verified 01/07/25 09:42 egg (eggs) Allergy Hives Verified 01/07/25 09:42 Food Allergies: Uncoded Allergy Hives Verified 01/07/25 09:42 peach Allergy hives Verified 01/07/25 09:42 spider venom Allergy Anaphylaxis Verified 01/07/25 09:42 Family History Sister Skin cancer Blood clot associated with vein wall inflammation Miscarriage Diabetes Mother Miscarriage Osteoporosis Father Diabetes Grandmother Osteoporosis Surgical History History of throat surgery S/P gastric sleeve procedure Hx laparoscopic cholecystectomy H/O removal of cyst H/O rotator cuff surgery H/O gastric sleeve H/O bilateral breast reduction surgery Tubal ligation status H/O: hysterectomy History of back surgery History of cardiac catheterization Social History Smoking Status: Former smoker alcohol intake: never substance use type: does not use what type of physical activity do you participate in: none do you feel safe at home: Yes Review of Systems (Anesthesia) ROS Narrative System reviewed and no additional complaints, except as documented.
--- NOTE | 2025-01-07 10:00 | PCM.PRE.AN2 ---
ASA Classification* ASA Classification ASA Classification: 2 Assessment & Plan Anesthesia* Anesthesia Assessment Anesthesia Assessment: Discussed sedation and/or anesthesia options, risks, benefits, and alternatives with patient/parents/legal guardian/POA. Questions invited. The patient/parents/legal guardian/POA seems to understand and agrees to proceed with anesthesia plan. Reviewed the physical assessment, medical history, allergy history and patient home medications list prior to surgery/procedure/anesthetic and documented any changes. Performed airway and anesthesia risk assessments. Anesthesia Type Anesthesia Type: General Anesthesia Focused Assessment* Temperature: 98.4 F Pulse Rate: 56 Blood Pressure: 135/81 Respiratory Rate: 16 Pulse Ox: 100 Airway Assessment Mouth opens: >3 cm Mallampati Score: II Labs Anesthesia Preop lab: CBC WBC 10.4 K/mm3 (4.4-11.0) 01/01/25 10:37 01/01/25 RBC 4.62 M/mm3 (4.2-5.4) 01/01/25 10:37 01/01/25 Hgb 13.8 g/dL (12.0-15.0) 01/01/25 10:37 01/01/25 Hct 43.4 % (37-47) 01/01/25 10:37 01/01/25 Plt Count 260 K/mm3 (150-450) 01/01/25 10:37 01/01/25 CHEMISTRY Potassium 5.2 mmol/L (3.3-5.1) H 01/01/25 10:37 01/01/25 Sodium 139 mmol/L (133-145) 01/01/25 10:37 01/01/25 BUN 18 mg/dL (4-19) 01/01/25 10:37 01/01/25 Creatinine 0.68 mg/dL (0.70-1.20) L 01/01/25 10:37 01/01/25 Glucose 104 mg/dL (70-99) H 01/01/25 10:37 01/01/25 COAG Pre-Assessment Diagnosis/Proposed Procedure Planned Operative Procedure(s): LEFT RENAL ESWL Anesthesia History 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 When Was Last Pacemaker Check QUESTION #4 FULL TEXT: You/Your Family Experience fever (hyperthermia) with Anesthesia Last Oral Intake Last Oral intake: Last Oral Intake NPO since 06:30 01/07/25 09:45 Meds taken in AM with sips of Yes 01/07/25 09:45 water? 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 Female Yes 12/24/24 08:22 HX of Motion Sickness No 12/24/24 08:22 HX of N/V After Surgery No 12/24/24 08:22 Non-Smoker Yes 12/24/24 08:22 Duration of Surgery greater Yes 12/24/24 08:22 than 60 minutes Number of Risk Factors 3 12/24/24 08:22 PONV Score Moderate Risk 12/24/24 08:22 Height & Weight Height & Weight: Anesthesia: Height & Weight Height 5 ft 2 in 01/07/25 09:45 Weight: 81 kg 01/07/25 09:45 Body Mass Index (BMI) 32.6 01/07/25 09:45 Respiratory Assessment Respiratory Assessment - planishing hammer operator: Respiratory Tract Infection Hx - planishing hammer operator Hx Respiratory Tract Infection No 12/24/24 08:22 STOP Sleep Apnea STOP Sleep Apnea - planishing hammer operator: STOP Sleep Apnea - planishing hammer operator Hx Hypertension No 12/24/24 08:22 Hx Sleep Apnea No 12/24/24 08:22 CPAP BIPAP Do you snore loudly (louder Yes 12/24/24 08:22 than talking or can be heard Do you often feel tired/ No 12/24/24 08:22 fatigued/ sleepy during daytime? Has anyone observed you stop Yes 12/24/24 08:22 breathing during sleep? STOP Results Positive 12/24/24 08:22 QUESTION #5 FULL TEXT : Do you snore loudly (louder than talking or can be heard through closed doors)? 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 Specify any problems Hx of Preganancy in last 3 No 12/24/24 08:22 Months Nurse Filling Out Transfusion [email or web address] 12/24/24 08:22 & Questions: Date: 12/24/24 12/24/24 08:22 Time: 08:12/24/24 08:22 Patient unable to answer at this time (ie. confused, unrespo /Reproduction History /Reproductive History - planishing hammer operator: /Reproductive Hx- planishing hammer operator Hx Now Gestational Age (in weeks): EDC: Hx Hx Para Hx Section SAB Active Medications Active Medications: Current Medications Generic Name Dose Route Start Last Admin Trade Name Freq PRN Reason Stop Dose Admin Lactated Ringer's 1,000 mls @ 15 mls/hr 01/07/25 09:15 01/07/25 09:50 IV 15 mls/hr .Q48H DORIAN Administration Cefazolin Sodium 2 gm/ Sodium 110 mls @ 200 mls/hr 01/07/25 09:30 Chloride IV 01/07/25 10:02 INTRAOP ONE PFSH Medical History Miscarriage UTI (urinary tract infection) Bowel disease Toe fracture Migraines Gestational diabetes Anemia Shoulder blade pain Vitamin D deficiency Stress incontinence Uterine cancer OCD (obsessive compulsive disorder) Wears partial dentures Cancer Schizophrenia Bipolar disorder Depression Anxiety Kidney stones Back pain Restless legs Arthritis Alcohol use History of ulceration Shortness of breath on exertion Former smoker Asthma Leg cramps Home Medications ?Medication ?Instructions ?Recorded ?Last Taken ?Type albuterol sulfate 90 mcg/actuation 2 puff inhalation Q4H PRN 12/24/24 01/06/25 History aerosol inhaler shortness of breath or wheezing budesonide-formoterol HFA 80 2 puff inhalation BID 12/24/24 01/07/25 06:30 History mcg-4.5 mcg/actuation aerosol inhaler (Symbicort) buprenorphine 5 mcg/hour weekly 1 patch topical QWEEK 12/24/24 01/03/25 History transdermal patch cholecalciferol (vitamin D3) 1,250 1,250 mcg PO QWEEK 12/24/24 Unknown History mcg (50,000 unit) capsule epinephrine 0.3 mg/0.3 mL 0.3 ml IM X1 PRN anaphylaxis 12/24/24 Unknown History injection, auto-injector furosemide 20 mg tablet 20 mg PO DAILY 12/24/24 01/06/25 History pramipexole 0.125 mg tablet 0.125 mg PO QHS 12/24/24 Unknown History doxycycline hyclate 100 mg tablet 100 mg PO BID #14 tabs 01/04/25 01/07/25 06:30 Rx Allergy/AdvReac Type Severity Reaction Status Date / Time bee venom protein (honey bee) Allergy Anaphylaxis Verified 01/07/25 09:42 egg (eggs) Allergy Hives Verified 01/07/25 09:42 Food Allergies: Uncoded Allergy Hives Verified 01/07/25 09:42 peach Allergy hives Verified 01/07/25 09:42 spider venom Allergy Anaphylaxis Verified 01/07/25 09:42 Family History Sister Skin cancer Blood clot associated with vein wall inflammation Miscarriage Diabetes Mother Miscarriage Osteoporosis Father Diabetes Grandmother Osteoporosis Surgical History History of throat surgery S/P gastric sleeve procedure Hx laparoscopic cholecystectomy H/O removal of cyst H/O rotator cuff surgery H/O gastric sleeve H/O bilateral breast reduction surgery Tubal ligation status H/O: hysterectomy History of back surgery History of cardiac catheterization Social History Smoking Status: Former smoker alcohol intake: never substance use type: does not use what type of physical activity do you participate in: none do you feel safe at home: Yes Review of Systems (Anesthesia) ROS Narrative System reviewed and no additional complaints, except as documented.
--- NOTE | 2025-01-07 11:27 | EX.PCM.DISCH ---
Discharge Instructions Diet Discharge Diet: No restrictions Activity Discharge Activity: Return to Normal Activity Dressing / Incision Call your doctor if you observe: Fever of 101 or Higher, Inability to urinate and Inability to have a bowel movement Follow Up Care Please Follow Up With: Slime Collier MD When: in 2-3 weeks with KUB Test Results: Test results from this visit will be discussed in further detail at your follow-up appointment, if applicable. Discharge Plan Admission Attending Provider: Slime Collier Primary Care Provider: Chloe Contreras Instructions Print Language: New Zealander Discharge Orders/Prescriptions Prescriptions: New oxycodone-acetaminophen 5-325 mg tablet 1 tab PO Q8H PRN (Reason: pain) 3 Days Qty: 10 0RF cephalexin 250 mg/5 mL suspension for reconstitution 500 mg PO BID 3 Days Qty: 60 0RF ondansetron 4 mg tablet,disintegrating 4 mg PO Q8H PRN (Reason: nausea and vomiting) Qty: 10 0RF phenazopyridine 200 mg tablet 200 mg PO TID PRN (Reason: pain) Qty: 30 3RF Continued albuterol sulfate 90 mcg/actuation HFA aerosol inhaler 2 puff inhalation Q4H PRN (Reason: shortness of breath or wheezing) budesonide-formoterol [Symbicort] 80-4.5 mcg/actuation HFA aerosol inhaler 2 puff inhalation BID buprenorphine 5 mcg/hour patch weekly 1 patch topical QWEEK Patient Comments: Upper left chest epinephrine 0.3 mg/0.3 mL auto-injector 0.3 ml IM X1 PRN (Reason: anaphylaxis) cholecalciferol (vitamin D3) 1,250 mcg (50,000 unit) capsule 1,250 mcg PO QWEEK pramipexole 0.125 mg tablet 0.125 mg PO QHS furosemide 20 mg tablet 20 mg PO DAILY doxycycline hyclate 100 mg tablet 100 mg PO BID Qty: 14 0RF Referrals / Follow Up: Chloe Contreras NP-C [Primary Care Provider] - Disposition Disposition (needs filled in before D/C Order can be placed): Home, Self Care
--- NOTE | 2025-01-07 11:31 | PCM.OPRPT ---
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: No Type of Anesthesia: General RN Documented Start/Stop Times: Operation Date: 01/07/25 10:40 Case Time Into Pre-Op 01/07/25 09:07 Out of Pre-Op 01/07/25 11:30 Anesthesia Start 01/07/25 11:32 Into Room 01/07/25 11:32 Procedure Start 01/07/25 11:41 Procedure End 01/07/25 12:35 Anesthesia End 01/07/25 12:41 Out of Room 01/07/25 12:41 Into Recovery 01/07/25 12:42 Procedure Start Time: 11:41 Procedure Stop Time: 12:35 Select all DRAINS/GRAFTS/IMPLANTS that apply: None Estimated Blood Loss: <5cc Specimen collected: No Description of surgery: The patient is a 59-year-old female with a left renal calculus here for shockwave lithotripsy. Informed consent was obtained. The patient was taken to the operating room and placed on the operating room table. Anesthesia monitored the head, neck, airway, IV access and vital signs throughout the case. Once anesthesia was appropriately administered she was aligned with the lithotripter. Her stone was easily visualized. 3000 shocks were applied to the stone which did not appear to be significantly fragmented at the conclusion of the case. She was awakened and taken to the recovery room in good condition. There were no complications during this procedure. Surgical Findings: Left renal calculus not well fragmented at the conclusion of the case Complications Complications: No Admit VTE Documentation VTE Present on Admission: Yes VTE Mechan Device Prophylaxis: SCD's VTE Pharm Prophylaxis ordered?: No Reason prophylaxis not ordered: Treatment Not Indicated
[2025-01-07] MEDS: Cefazolin 1 GM/5 ML Vial 2 GM IV (11:33)
[2025-01-07] MEDS: fentaNYL 100 MCG/2 ML Ampul IV (11:37)
--- NOTE | 2025-01-07 13:07 | PCM.POST.ANE ---
Anesthesia: Postop Eval I Current Vital Signs Temperature: 97.2 F Pulse Rate: 75 Blood Pressure: 133/78 Respiratory Rate: 16 Pulse Ox: 100 Oxygen Delivery Method: Room Air Assessment Airway patent: Yes Spontaneous unlabored respirations: Yes Mental status: Awake and Calm nausea: No Vomiting: No Anesthesia Complication: No Fluid Hydration Crystalloid volume administer (ml): 700 Total IV fluid infused: 700 Progress Note Anesthesia document: Postop Eval 1 completed: Yes
--- NOTE | 2025-01-07 14:04 | CT_ITS ---
PROCEDURE: STROKE BRAIN/HEAD WITHOUT CONT 01/07/2025 REASON FOR EXAM: AMS TECHNIQUE: STROKE BRAIN/HEAD WITHOUT CONT Coronal and Sagittal reconstruction series were provided. One or more dose reduction techniques were used (e.g., Automated exposure control, adjustment of the mA and/or kV according to patient size, use of iterative reconstruction technique. RADIATION DOSE SUMMARY: CTDlvol: 44.99 mGy DLP: 829.85 mGycm COMPARISON: None FINDINGS: Brain: Within normal limits for age mild cerebellar atrophy. Tiny old lacune in the insular cortex of the right and left temporal lobes. CSF Spaces: Normal Sinuses/Mastoids: Clear at visualized levels Bones: CT/STROKE Brain/Head without Cont IMPRESSION: Mild degree of cerebellar atrophy. Findings suggestive of tiny old lacune in the right and left insular cortex of the left and right temporal lobes. Reading Location: [id number]
--- NOTE | 2025-01-07 14:04 | CT_ITS ---
PROCEDURE: STROKE BRAIN/HEAD WITHOUT CONT 01/07/2025 REASON FOR EXAM: AMS TECHNIQUE: STROKE BRAIN/HEAD WITHOUT CONT Coronal and Sagittal reconstruction series were provided. One or more dose reduction techniques were used (e.g., Automated exposure control, adjustment of the mA and/or kV according to patient size, use of iterative reconstruction technique. RADIATION DOSE SUMMARY: CTDlvol: 44.99 mGy DLP: 829.85 mGycm COMPARISON: None FINDINGS: Brain: Within normal limits for age mild cerebellar atrophy. Tiny old lacune in the insular cortex of the right and left temporal lobes. CSF Spaces: Normal Sinuses/Mastoids: Clear at visualized levels Bones: CT/STROKE Brain/Head without Cont IMPRESSION: Mild degree of cerebellar atrophy. Findings suggestive of tiny old lacune in the right and left insular cortex of the left and right temporal lobes. Reading Location: [id number]
--- NOTE | 2025-01-07 14:22 | PCM.POSTANE2 ---
Anesthesia Postop Eval I Sum Postop Eval Completion status Anesthesia document: Postop Eval 1 completed: Yes Anesthesia Postop Eval I Summary Anesthesia Postop Eval I Summary: Anesthesia Postop Eval I: Assessment Summary Airway patent Yes 01/07/25 13:08 FIREBOAT OPERATOR.VAISHNAVI Spontaneous unlabored Yes 01/07/25 13:08 FIREBOAT OPERATOR.OT respirations Mental status Awake,Calm 01/07/25 13:08 FIREBOAT OPERATOR.MDOT nausea No 01/07/25 13:08 FIREBOAT OPERATOR.MDOT Vomiting No 01/07/25 13:08 FIREBOAT OPERATOR.MDOT Anesthesia Postop Eval I: Fluid Summary Crystalloid volume administer 700 01/07/25 13:08 FIREBOAT OPERATOR.MDOT (ml) Colloids volume administered ( ml) Blood Product volume administered (ml) Total IV fluid infused 700 01/07/25 13:08 FIREBOAT OPERATOR.OT Anesthesia Postop Eval I: Summary Notes Anesthesia Complication No 01/07/25 13:08 FIREBOAT OPERATOR.OT Anesthesia Complication Comment: Post-operative progress note Anesthesia: Postop Eval II Evaluation Mental status: Unresponsive Pain Level: 0 nausea: No Vomiting: No Progress Note Post-operative progress note: change in mental status, see rn notes, patient hemodynamically stable, symmetrical movement, no asymmetry, patient responds to verbal stimuli when called by gazing at calling voice- proceeded to call a stroke alert, consulted hospitalist, patient taken to for ct scan per hospitalist, dr matamoros aware of situation. discussed with sister, who is an icu nurse. she claims that she has a history acting out such an event before due to her her underlying schizophrenia and bipolar disorder.
--- NOTE | 2025-01-07 14:22 | PCM.POSTANE2 ---
Anesthesia Postop Eval I Sum Postop Eval Completion status Anesthesia document: Postop Eval 1 completed: Yes Anesthesia Postop Eval I Summary Anesthesia Postop Eval I Summary: Anesthesia Postop Eval I: Assessment Summary Airway patent Yes 01/07/25 13:08 PARTNER MANAGEMENT CONSULTANT.[email or web address] Spontaneous unlabored Yes 01/07/25 13:08 PARTNER MANAGEMENT CONSULTANT.OT respirations Mental status Awake,Calm 01/07/25 13:08 PARTNER MANAGEMENT CONSULTANT.MDOT nausea No 01/07/25 13:08 PARTNER MANAGEMENT CONSULTANT.MDOT Vomiting No 01/07/25 13:08 PARTNER MANAGEMENT CONSULTANT.MDOT Anesthesia Postop Eval I: Fluid Summary Crystalloid volume administer 700 01/07/25 13:08 PARTNER MANAGEMENT CONSULTANT.MDOT (ml) Colloids volume administered ( ml) Blood Product volume administered (ml) Total IV fluid infused 700 01/07/25 13:08 PARTNER MANAGEMENT CONSULTANT.OT Anesthesia Postop Eval I: Summary Notes Anesthesia Complication No 01/07/25 13:08 PARTNER MANAGEMENT CONSULTANT.OT Anesthesia Complication Comment: Post-operative progress note Anesthesia: Postop Eval II Evaluation Mental status: Unresponsive Pain Level: 0 nausea: No Vomiting: No Progress Note Post-operative progress note: change in mental status, see rn notes, patient hemodynamically stable, symmetrical movement, no asymmetry, patient responds to verbal stimuli when called by gazing at calling voice- proceeded to call a stroke alert, consulted hospitalist, patient taken to for ct scan per hospitalist, dr matamoros aware of situation. discussed with sister, who is an icu nurse. she claims that she has a history acting out such an event before due to her her underlying schizophrenia and bipolar disorder.
--- NOTE | 2025-01-07 14:53 | CT_ITS ---
PROCEDURE: CTA HEAD AND NECK W/ CONTRAST 01/07/2025 REASON FOR EXAM: CVA TECHNIQUE: CTA HEAD AND NECK W/ CONTRAST Multiplanar Sagittal and Coronal images were obtained. 3D post processing was performed CONTRAST: Isovue 3 7 VOLUME: 100 mL One or more dose reduction techniques were used (e.g., Automated exposure control, adjustment of the mA and/or kV according to patient size, use of iterative reconstruction technique). RADIATION DOSE SUMMARY: CTDlvol: 17.85 mGy DLP: 727.05 mGycm COMPARISON: Prior CT scan of the brain done earlier in the day. FINDINGS: Aortic Arch: Normal size and branching pattern. Mild atherosclerotic plaque. Brachiocephalic and Subclavians: Unremarkable RIGHT Carotid: Right CCA: Unremarkable. Right ICA: Unremarkable. Right ECA: Unremarkable. LEFT Carotid: Left CCA: Unremarkable. Left ICA: Unremarkable. Left ECA: Unremarkable. Vertebrals: Codominant. Arise from the subclavians. Both vertebrals form the basilar. RIGHT Vertebral: Unremarkable. LEFT Vertebral: Unremarkable. Anatomy: [place] of [place] anatomy is normal. Aneurysm or avm: No intracranial aneurysms or large vascular malformations are identified. Anterior cerebral arteries: Unremarkable: Middle cerebral arteries: Unremarkable. Basilar artery: Unremarkable. Posterior cerebral arteries: Unremarkable. Other major branches of the posterior circulation: Unremarkable. Major venous structures: Unremarkable. Other findings: Neck: Lungs: Calcified granuloma in the left upper lobe. Calcified left hilar adenopathy. Bones: CT/CTA Head AND Neck W/ Contrast IMPRESSION: Unremarkable examination. Reading Location: [id number]
--- NOTE | 2025-01-07 14:53 | CT_ITS ---
PROCEDURE: CTA HEAD AND NECK W/ CONTRAST 01/07/2025 REASON FOR EXAM: CVA TECHNIQUE: CTA HEAD AND NECK W/ CONTRAST Multiplanar Sagittal and Coronal images were obtained. 3D post processing was performed CONTRAST: Isovue 3 7 VOLUME: 100 mL One or more dose reduction techniques were used (e.g., Automated exposure control, adjustment of the mA and/or kV according to patient size, use of iterative reconstruction technique). RADIATION DOSE SUMMARY: CTDlvol: 17.85 mGy DLP: 727.05 mGycm COMPARISON: Prior CT scan of the brain done earlier in the day. FINDINGS: Aortic Arch: Normal size and branching pattern. Mild atherosclerotic plaque. Brachiocephalic and Subclavians: Unremarkable RIGHT Carotid: Right CCA: Unremarkable. Right ICA: Unremarkable. Right ECA: Unremarkable. LEFT Carotid: Left CCA: Unremarkable. Left ICA: Unremarkable. Left ECA: Unremarkable. Vertebrals: Codominant. Arise from the subclavians. Both vertebrals form the basilar. RIGHT Vertebral: Unremarkable. LEFT Vertebral: Unremarkable. Anatomy: [place] of [place] anatomy is normal. Aneurysm or avm: No intracranial aneurysms or large vascular malformations are identified. Anterior cerebral arteries: Unremarkable: Middle cerebral arteries: Unremarkable. Basilar artery: Unremarkable. Posterior cerebral arteries: Unremarkable. Other major branches of the posterior circulation: Unremarkable. Major venous structures: Unremarkable. Other findings: Neck: Lungs: Calcified granuloma in the left upper lobe. Calcified left hilar adenopathy. Bones: CT/CTA Head AND Neck W/ Contrast IMPRESSION: Unremarkable examination. Reading Location: [id number]
--- NOTE | 2025-01-07 17:15 | MRI_ITS ---
PROCEDURE: MR BRAIN WITHOUT CONTRAST 01/07/2025 REASON FOR EXAM: CVA TECHNIQUE: Multiplanar and multisequential MRI of the brain was performed without contrast. COMPARISON: CT head/angiography earlier today 01/07/2025. FINDINGS: No regions of abnormal restricted diffusion to indicate recent infarct. Ventricular and sulcal size and configuration are within normal limits. Several scattered foci of T2 FLAIR hyperintensity in the supratentorial white matter, nonspecific but most likely reflect mild chronic microangiopathic changes. Mildly prominent benign perivascular spaces in the basal ganglia. No evidence of intracranial hemorrhage, extra-axial collection, mass effect, or other significant abnormality. Preserved major intracranial vascular flow voids. Unremarkable orbits. Well-aerated paranasal sinuses and mastoid air cells. MRI/Brain without Contrast IMPRESSION: No acute intracranial abnormality; no acute infarct. Reading Location: [id number]
--- NOTE | 2025-01-07 17:15 | ECHOD_ITS ---
Reason For Study Reason For Study: TIA/CVA Procedure This was a 2D Doppler, Color Flow transthoracic echocardiogram. The study was technically difficult. D/T respiratory interference. Exam performed portable in patient room. Left Ventricle Normal LV size. The estimated ejection fraction is 60 %. Normal diastololic function. No regional wall motion abnormalities noted. Right Ventricle Normal RV size. Normal systolic function. Atria Normal left atrium. The right atrium is mildly enlarged. Bubble contrast study is negative for PFO/ASD. Mitral Valve Mild mitral annular calcification. Trivial mitral valve insufficiency. Tricuspid Valve Normal tricuspid valve. Mild (1+) tricuspid valve insufficiency. Pulmonary artery systolic pressure is 29 mmHg. Aortic Valve Trisinus/trileaflet aortic valve. Pulmonic Valve Normal pulmonic valve. Trivial pulmonic valve insufficiency. Great Vessels Normal sized aortic root. Pericardium/Pleural No pericardial effusion. Medication Performed a rapid injection of agitated mix of 9 cc saline and 1cc air to assess for atrial septal defect. MMode/2D Measurements & Calculations LVIDd: 4.1 cm IVSd: 0.96 cm Ao root diam: 3.4 cm LVIDs: 2.7 cm LVPWd: 0.99 cm RVDd: 3.8 cm FS: 34.2 % LAV(MOD-bp): 46.8 ml LVAd ap4: 22.3 cm2 SV(MOD-sp4): 33.2 ml LAV(MOD-bp) Indexed: 25.7 ml/m2 LVLd ap4: 8.0 cm SI(MOD-sp4): 18.2 ml/m2 LAV(MOD-sp2): 45.3 ml EDV(MOD-sp4): 50.9 ml LAV(MOD-sp4): 45.0 ml EDV(sp4-el): 53.0 ml LVAs ap4: 10.9 cm2 LVLs ap4: 5.9 cm ESV(MOD-sp4): 17.7 ml ESV(sp4-el): 16.9 ml EF(MOD-sp4): 65.2 % EF(sp4-el): 68.0 % SV(sp4-el): 36.0 ml LA A4 area: 18.0 cm2 LA dimension(2D): 4.0 cm RA A4 area: 19.1 cm2 TAPSE: 2.4 cm Time Measurements MV dec time: 0.18 sec Doppler Measurements & Calculations MV E max john: 79.5 cm/sec Lat Peak E' John: 13.0 cm/sec Med Peak E' John: 9.8 cm/sec MV A max john: 94.5 cm/sec E/E' lat: 6.1 E/E' med: 8.1 MV E/A: 0.84 MV V2 max: 98.4 cm/sec MV P1/2t max john: 85.4 cm/sec Ao V2 max: 146.3 cm/sec MV max P.9 mmHg MV P1/2t: 59.2 msec Ao max P.6 mmHg MV V2 mean: 53.5 cm/sec MV dec slope: 422.7 cm/sec2 Ao V2 mean: 98.0 cm/sec MV mean P.4 mmHg MVA(P1/2t): 3.7 cm2 Ao mean P.4 mmHg MV V2 VTI: 26.6 cm Ao V2 VTI: 36.1 cm AV (velocity ratio): 0.88 LV V1 max: 129.5 cm/sec PA V2 max: 83.8 cm/sec PI end-d john: 95.7 cm/sec LV V1 max P.7 mmHg PA V2 mean: 57.8 cm/sec LV V1 mean P.5 mmHg LV V1 mean: 88.3 cm/sec LV V1 VTI: 31.8 cm TR max john: 256.0 cm/sec TR max P.2 mmHg ECHO/Echo Complete Interpretation Summary The estimated ejection fraction is 60 %. The right atrium is mildly enlarged. Bubble contrast study is negative for PFO/ASD. Mild mitral annular calcification. Mild (1+) tricuspid valve insufficiency. Ordering Physician: Valentín Bates Referring Physician: Slime Collier; Chloe Contreras Performed By: Chuyita Ramirez, DANIEL, RVT
--- NOTE | 2025-01-07 17:15 | MRI_ITS ---
PROCEDURE: MR BRAIN WITHOUT CONTRAST 01/07/2025 REASON FOR EXAM: CVA TECHNIQUE: Multiplanar and multisequential MRI of the brain was performed without contrast. COMPARISON: CT head/angiography earlier today 01/07/2025. FINDINGS: No regions of abnormal restricted diffusion to indicate recent infarct. Ventricular and sulcal size and configuration are within normal limits. Several scattered foci of T2 FLAIR hyperintensity in the supratentorial white matter, nonspecific but most likely reflect mild chronic microangiopathic changes. Mildly prominent benign perivascular spaces in the basal ganglia. No evidence of intracranial hemorrhage, extra-axial collection, mass effect, or other significant abnormality. Preserved major intracranial vascular flow voids. Unremarkable orbits. Well-aerated paranasal sinuses and mastoid air cells. MRI/Brain without Contrast IMPRESSION: No acute intracranial abnormality; no acute infarct. Reading Location: [id number]
[2025-01-07] MEDS: Budesonide Respules 0.5 MG/2 ML AMPUL.NEB. INHALATION (20:24)
[2025-01-07] MEDS: Albuterol 2.5 MG/3 ML VIAL.NEB. INHALATION (20:24)
[2025-01-07] MEDS: Pramipexole Di-HCl 0.125 MG Tablet PO (20:51)
[2025-01-07] MEDS: 0.9% Saline Lock 10 ML Syringe IV (20:51)
[2025-01-08] VITALS (8 sets, daily range): BP systolic 100–125; BP diastolic 54–73; PULSE 56–68; RESP 14–18; TEMP 36.5–36.6; O2SAT 98–100; BMI 32.6
[2025-01-08 06:14] LABS: Hematocrit 40.8 % (37-47); Hemoglobin 13.0 g/dL (12.0-15.0); Immature Granulocytes Count 0.020 X10^3/uL (0.0-0.0); Mean Corp Hgb Conc 31.9 g/dL (32-36); Mean Corpuscular Volume 93.8 fL (81-99); Mean Platelet Vol. 10.1 fl (6.2-12.0); NRBC Flagged by Analyzer 0 % (0-5); Platelet Count 226 K/mm3 (150-450); RBC Distribution Width CV 13.3 % (11.6-14.6); RBC Distribution Width SD 45.7 fl (35.1-43.9); Red Blood Count 4.35 M/mm3 (4.2-5.4); White Blood Count 10.2 K/mm3 (4.4-11.0)
[2025-01-08 07:05] LABS: Cholesterol 150 mg/dL (<=200); Low Density Lipoprotein Calc. 68 mg/dL; Triglycerides 50 mg/dL; Very Low Density Lipoprotein 10 mg/dL (5-40); cholesterol:hdl ratio screen 2.08
[2025-01-08] MEDS: Albuterol 2.5 MG/3 ML VIAL.NEB. INHALATION ×3 (07:15→13:32)
[2025-01-08] MEDS: Budesonide Respules 0.5 MG/2 ML AMPUL.NEB. INHALATION (07:15)
[2025-01-08 07:17] LABS: Anion Gap 14 (5-15); BUN 13 mg/dL (4-19); BUN/Creat Ratio 23.1 RATIO (10-20); Calcium,Total 8.8 mg/dL (7.6-11.0); Carbon Dioxide 21.9 mmol/L (21.0-32.0); Chloride 105 mmol/L (98-108); Estimated Creatinine Clearance 106.08 ml/min (50-250); Glucose 92 mg/dL (70-99); Potassium 4.2 mmol/L (3.3-5.1)
--- NOTE | 2025-01-08 10:00 | CASEMGMT ---
Social Work Pt MRI is negative for stroke, therefore PHQ9 not completed. Gayle Staley, GAMMA OPERATOR
--- NOTE | 2025-01-08 10:00 | CASEMGMT ---
Social Work Pt MRI is negative for stroke, therefore PHQ9 not completed. Gayle Staley, PROGRAM THERAPIST
--- NOTE | 2025-01-08 10:26 | NEURO.CONS ---
Assessment and Plan: Neuro Assessment/Plan CORINA CORDERO is a 59 F being evaluated by Teleneurology for episode of dysarthria and may be questionable left sided weakness after lithotripsy procedure that was performed under general anesthesia. MRI BRAIN/CT angio came back normal. Stroke rule out . No concern for seizure. Symptoms most likely in the setting of lingering anesthetic effect? Patient is at baseline with no acute findings. * Transfer to [facility] for the following reasons: none I personally attended this patient and spent a total time of 50minutes evaluating this patient including clinical assessment, review of chart, medical history imaging, and determining appropriate treatment and workup. HPI Consult Data Date of Consult: 01/08/25 HPI Narrative HPI Narrative: As per HPI, This is a 59-year-old female with history of kidney stones who underwent left renal extracorporal shockwave lithotripsy by Dr. Charlene marcum. Per Dr. Collier the procedure was straightforward. After, in the PACU, patient was notably dysarthric. And a stroke team was called. Patient was sent for head CT that showed no acute process and subsequently a CTA of the head neck. Patient has never had a stroke before. Patient experiencing dysarthria though does follow commands and also left-sided weakness. Patient has not had a stroke before. Patient and sister had met with [facility] teleneurology and they discussed TNK with them both. They both agreed not to proceed with any TNK. On my evaluation ,patient is normal and back to baseline and doesnot remeber what happened. [facility] Medical History Miscarriage UTI (urinary tract infection) Bowel disease Toe fracture Migraines Gestational diabetes Anemia Shoulder blade pain Vitamin D deficiency Stress incontinence Uterine cancer OCD (obsessive compulsive disorder) Wears partial dentures Cancer Schizophrenia Bipolar disorder Depression Anxiety Kidney stones Back pain Restless legs Arthritis Alcohol use History of ulceration Shortness of breath on exertion Former smoker Asthma Leg cramps Home Medications ?Medication ?Instructions ?Recorded ?Last Taken ?Type albuterol sulfate 90 mcg/actuation 2 puff inhalation Q4H PRN 12/24/24 01/06/25 History aerosol inhaler shortness of breath or wheezing budesonide-formoterol HFA 80 2 puff inhalation BID 12/24/24 01/07/25 06:30 History mcg-4.5 mcg/actuation aerosol inhaler (Symbicort) buprenorphine 5 mcg/hour weekly 1 patch topical QWEEK 12/24/24 01/03/25 History transdermal patch cholecalciferol (vitamin D3) 1,250 1,250 mcg PO QWEEK 12/24/24 Unknown History mcg (50,000 unit) capsule epinephrine 0.3 mg/0.3 mL 0.3 ml IM X1 PRN anaphylaxis 12/24/24 Unknown History injection, auto-injector furosemide 20 mg tablet 20 mg PO DAILY 12/24/24 01/06/25 History pramipexole 0.125 mg tablet 0.125 mg PO QHS 12/24/24 Unknown History doxycycline hyclate 100 mg tablet 100 mg PO BID #14 tabs 01/04/25 01/07/25 06:30 Rx cephalexin 250 mg/5 mL oral 500 mg (10 mL) PO BID 3 days #60 mL 01/07/25 Unknown Rx suspension ondansetron 4 mg disintegrating 4 mg PO Q8H PRN nausea and 01/07/25 Unknown Rx tablet vomiting #10 tabs oxycodone-acetaminophen 5 mg-325 1 tab PO Q8H PRN pain 3 days #10 01/07/25 Unknown Rx mg tablet tabs phenazopyridine 200 mg tablet 200 mg PO TID PRN pain #30 tabs 01/07/25 Unknown Rx Allergy/AdvReac Type Severity Reaction Status Date / Time bee venom protein (honey bee) Allergy Anaphylaxis Verified 01/07/25 09:42 egg (eggs) Allergy Hives Verified 01/07/25 09:42 Food Allergies: Uncoded Allergy Hives Verified 01/07/25 09:42 peach Allergy hives Verified 01/07/25 09:42 spider venom Allergy Anaphylaxis Verified 01/07/25 09:42 Family History Sister Skin cancer Blood clot associated with vein wall inflammation Miscarriage Diabetes Mother Miscarriage Osteoporosis Father Diabetes Grandmother Osteoporosis Surgical History History of throat surgery S/P gastric sleeve procedure Hx laparoscopic cholecystectomy H/O removal of cyst H/O rotator cuff surgery H/O gastric sleeve H/O bilateral breast reduction surgery Tubal ligation status H/O: hysterectomy History of back surgery History of cardiac catheterization Social History Smoking Status: Former smoker alcohol intake: never substance use type: does not use what type of physical activity do you participate in: none do you feel safe at home: Yes Vital Signs Vital Signs Vital Signs: 01/07/25 12:42 01/07/25 12:45 01/07/25 12:50 Temperature 97.2 F L Temperature Source Temporal Pulse Rate 63 64 63 Pulse Strength Respiratory Rate 16 18 16 Respiratory Pattern Normal Blood Pressure 133/78 H 120/72 111/70 Blood Pressure Mean 96 88 83 Blood Pressure Source Monitor Monitor Monitor Blood Pressure Position Semi-Fowlers Semi-Fowlers Semi-Fowlers Blood Pressure Location Left Arm Left Arm Left Arm Baseline BP 135/81 135/81 135/81 Pulse Ox 99 96 97 Oxygen Delivery Method Room Air Room Air Room Air 01/07/25 12:55 01/07/25 13:00 01/07/25 13:08 Temperature 97.2 F L Temperature Source Pulse Rate 58 L 57 L 75 Pulse Strength Respiratory Rate 16 16 16 Respiratory Pattern Blood Pressure 124/74 H 124/71 H 133/78 H Blood Pressure Mean 90 88 Blood Pressure Source Monitor Monitor Blood Pressure Position Semi-Fowlers Semi-Fowlers Blood Pressure Location Left Arm Left Arm Baseline BP 135/81 135/81 Pulse Ox 97 98 100 Oxygen Delivery Method Room Air Room Air Room Air 01/07/25 13:15 01/07/25 13:30 01/07/25 13:45 Temperature Temperature Source Pulse Rate 53 L 69 90 Pulse Strength Respiratory Rate 16 16 16 Respiratory Pattern Blood Pressure 124/83 H 144/93 H 154/99 H Blood Pressure Mean 96 110 117 Blood Pressure Source Monitor Monitor Monitor Blood Pressure Position Semi-Fowlers Semi-Fowlers Semi-Fowlers Blood Pressure Location Left Arm Left Arm Left Arm Baseline BP 135/81 135/81 135/81 Pulse Ox 97 96 94 Oxygen Delivery Method Room Air Room Air Room Air 01/07/25 14:05 01/07/25 16:00 01/07/25 18:00 Temperature 97.2 F L 96.9 F L Temperature Source Temporal Temporal Pulse Rate 85 73 91 Pulse Strength Respiratory Rate 20 H 16 16 Respiratory Pattern Blood Pressure 156/80 H 125/77 H 123/74 H Blood Pressure Mean 105 93 90 Blood Pressure Source Monitor Monitor Blood Pressure Position Semi-Fowlers Semi-Fowlers Blood Pressure Location Left Arm Left Arm Baseline BP Pulse Ox 90 95 97 Oxygen Delivery Method Room Air Room Air 01/07/25 19:00 01/07/25 20:18 01/07/25 20:24 Temperature 97.9 F Temperature Source Oral Pulse Rate 62 68 60 Pulse Strength Respiratory Rate 17 16 Respiratory Pattern Normal Blood Pressure 138/74 H Blood Pressure Mean 95 Blood Pressure Source Monitor Blood Pressure Position Semi-Fowlers Blood Pressure Location Left Arm Baseline BP Pulse Ox 98 Oxygen Delivery Method Room Air 01/07/25 20:24 01/07/25 20:28 01/08/25 00:20 Temperature 97.7 F L Temperature Source Oral Pulse Rate 68 65 Pulse Strength Respiratory Rate 15 Respiratory Pattern Blood Pressure 125/73 H Blood Pressure Mean 90 Blood Pressure Source Monitor Blood Pressure Position Semi-Fowlers Blood Pressure Location Left Arm Baseline BP Pulse Ox 98 100 Oxygen Delivery Method Room Air Room Air Room Air 01/08/25 03:00 01/08/25 04:11 01/08/25 04:32 Temperature 97.7 F L Temperature Source Oral Pulse Rate 56 L 59 L 59 L Pulse Strength Respiratory Rate 14 Respiratory Pattern Blood Pressure 100/54 L Blood Pressure Mean 69 Blood Pressure Source Monitor Blood Pressure Position Semi-Fowlers Blood Pressure Location Left Arm Baseline BP Pulse Ox 98 Oxygen Delivery Method Room Air 01/08/25 07:44 01/08/25 07:44 01/08/25 07:59 Temperature 97.8 F Temperature Source Oral Pulse Rate 68 66 Pulse Strength Respiratory Rate 18 14 Respiratory Pattern Normal Blood Pressure 120/65 Blood Pressure Mean 83 Blood Pressure Source Monitor Blood Pressure Position Semi-Fowlers Blood Pressure Location Left Arm Baseline BP Pulse Ox 100 Oxygen Delivery Method Room Air Room Air 01/08/25 08:20 Temperature Temperature Source Pulse Rate Pulse Strength Normal (2+) Respiratory Rate Respiratory Pattern Blood Pressure Blood Pressure Mean Blood Pressure Source Blood Pressure Position Blood Pressure Location Baseline BP Pulse Ox Oxygen Delivery Method Weight Weight: 81 kg Body Mass Index (BMI) 32.6 Physical Exam Neuro Neuro Narrative: -? General: Laying comfortably in bed; in no acute distress. -? HENT: Normal oropharynx and mucosa. Normal external appearance of ears and nose. Exophthalmos. -? Neck: Supple, no pain or tenderness -? CV:? No peripheral edema. -? Pulmonary:? Normal respiratory effort. -? Ext: No cyanosis, edema, or deformity -? Skin: No rash. Normal palpation of skin.? -? Musculoskeletal: full range of motion; no joint tenderness. Normal digits and nails by inspection. No clubbing. -? NEURO: -? Mental Status: The patient was alert and oriented to time, place, and person. Normal recent/remote memory, concentration, and general fund of knowledge. -? Language: speech is fluent.? Naming, repetition, fluency, and comprehension intact. -? Cranial nerves: EOMI, visual stout full, no facial asymmetry, facial sensation intact, hearing intact, tongue midline, no evidence of atrophy or fibrillations. As performed by the nurse. Sternocleidomastoid and trapezius were equally strong. Soft palate raises equally, no uvular deviations -? Motor: normal bulk, tone, and strength throughout. No pronator drift or satelliting. Upper and lower extremities equal bilaterally. -? Tone: is normal and bulk is normal -? Sensation- Intact to light touch bilaterally -? Coordination: No dysmetria on [id number]-[id number], finger follow finger or [id number]-[id number]. Lab / Micro Data 01/08/25 05:17 01/08/25 05:17 Labs: Laboratory Results - last 24 hr 01/07/25 10:37: Hemoglobin A1c 5.6 01/07/25 13:54: POC Glucose 110 H 01/08/25 05:17: WBC 10.2, RBC 4.35, Hgb 13.0, Hct 40.8, MCV 93.8, MCH 29.9, MCHC 31.9 L, RDW Std Deviation 45.7 H, RDW Coeff of Brittney 13.3, Plt Count 226, MPV 10.1, Immature Gran % (Auto) 0.200, Neut % (Auto) 67.8, Lymph % (Auto) 26.3, Alcorn % (Auto) 5.1, Eos % (Auto) 0.4, Baso % (Auto) 0.2, Absolute Neuts (auto) 6.9, Absolute Lymphs (auto) 2.69, Nucleated RBC % 0, Sodium 140, Potassium 4.2, Chloride 105, Carbon Dioxide 21.9, Anion Gap 14, BUN 13, Creatinine 0.57 L, Estim Creat Clear Calc 106.08, Est GFR (MDRD) Non-Af 105, BUN/Creatinine Ratio 23.1 H, Glucose 92, Calcium 8.8, Triglycerides 50, Cholesterol 150, LDL Cholesterol, Calc 68, VLDL Cholesterol 10, HDL Cholesterol 72, Cholesterol/HDL Ratio 2.08 Imaging Radiology Impression Brain CT 01/07/25 14:04 IMPRESSION: Mild degree of cerebellar atrophy. Findings suggestive of tiny old lacune in the right and left insular cortex of the left and right temporal lobes. Reading Location: [facility] Head/Neck CTA 01/07/25 14:53 IMPRESSION: Unremarkable examination. Reading Location: [facility] Brain MRI 01/07/25 17:15 IMPRESSION: No acute intracranial abnormality; no acute infarct. Reading Location: [facility] Active Medications Active Medications Active Medications: Current Medications Generic Name Dose Route Start Last Admin Trade Name Freq PRN Reason Stop Dose Admin Acetaminophen 650 mg 01/07/25 17:19 01/07/25 20:50 Acetaminophen 325 Mg Tablet PO 650 mg Q6H PRN PRN Administration Pain 1-10 Or Fever >100.7 Albuterol Sulfate 2.5 mg 01/07/25 17:28 Albuterol 2.5 Mg/3 Ml Vial.Neb. INHALATION Q4H PRN shortness of breath or wheezing Albuterol Sulfate 2.5 mg 01/07/25 17:45 01/08/25 07:15 Albuterol 2.5 Mg/3 Ml Vial.Neb. INHALATION 2.5 mg Q6HWA.RT DORIAN Administration Aspirin 81 mg 01/08/25 08:00 01/08/25 09:30 Aspirin 81 Mg Tab.Chew PO 81 mg BREAKFAST DORIAN Administration Budesonide 0.5 mg 01/07/25 17:45 01/08/25 07:15 Budesonide Respules 0.5 Mg/2 Ml Ampul.Neb. INHALATION 0.5 mg Q12H.RT DORIAN Administration Buprenorphine 1 patch 01/10/25 10:00 Buprenorphine 5 Mcg Patch.Tdwk TD QWEEK DORIAN Doxycycline Monohydrate 100 mg 01/07/25 22:00 01/08/25 09:31 Doxycycline 100 Mg Capsule PO 100 mg BID DORIAN Administration Ergocalciferol 1.25 mg 01/10/25 10:00 Ergocalciferol 1.25 Mg (50, 000 Unit) Capsule PO Kaplan@1000 DORIAN Hydralazine HCl 5 mg 01/07/25 17:19 Hydralazine 20 Mg/Ml Vial IV 01/08/25 17:19 Q30M PRN maintain BP parameters with HR <60 Sodium Chloride 250 mls @ 15 mls/hr 01/07/25 15:43 IV .[id number] PRN Saline Flush Labetalol HCl 10 - 20 mg 01/07/25 17:19 Labetalol 20 Mg/4 Ml Vial IV 01/08/25 17:19 Q10M PRN PRN maintain BP parameters with HR >/=60 Pramipexole Dihydrochloride 0.125 mg 01/07/25 22:00 01/07/25 20:51 Pramipexole Di-Hcl 0.125 Mg Tablet PO 0.125 mg QHS DORIAN Administration Sodium Chloride 10 - 40 ml 01/07/25 15:43 01/07/25 20:51 0.9% Saline Lock 10 Ml Syringe IV 10 ml UD PRN Administration SALINE FLUSH NIHSS NIHSS Nursing Documentation NIHSS Nursing Documentation: NIHSS: Ischemic Stroke/TIA Start: 01/07/25 17:19 Text: For ICU Patients: NIH sroke scale at Status: Complete presentation and every 2 hours or with change in RN caregiver Freq: [id number] Protocol: Activity Type Activity Date Activity User E-sign Co-sign Detail Recorded Client Recorded Date Recorded By Document 01/07/25 17:27 LIZETH p;[id number] 01/07/25 17:30 LIZETH 01/07/25 17:27 NIH Stroke Scale [NIHSS] A score of 0 is normal or asymptomatic . Total possible score is 42. Inpatient: RN or Physician to activate a stroke alert for onset of new stroke symptoms or with NIHSS increase >/= 3 points. Following change in neurological status, NIHSS will be performed per physician order or more frequently PRN. -1a. Level of Consciousness 0 - Alert; keenly responsive -1b. LOC Questions 0 - Answers BOTH questions correctly -1c. LOC Commands 0 - Performs BOTH tasks correctly -2. Best Gaze 0 - Normal -3. Visual 0 - No visual loss -4. Facial Palsy 0 - Normal symmetrical movements -5a. Left Arm 0 - No drift; arm holds 90 ( or 45) degrees for full 10 seconds -5b. Right Arm 0 - No drift; arm holds 90 ( or 45) degrees for full 10 seconds -6a. Left Leg 0 - No drift; leg holds 30- degree position for full 5 seconds -6b. Right Leg 0 - No drift; leg holds 30- degree position for full 5 seconds -7. Limb Ataxia 0 - Absent -8. Sensory 0 - Normal; no sensory loss -9. Best Language 3 - Mute, global aphasia; -10. Dysarthria UN - Intubated or other physical barrier, explain: -'UN' explanation Does not speak -11. Extinction and Inattention 0 - No abnormality -Total 3 Query Text:A score of 0 is normal or asymptomatic. Total possible score is 42 . ED: Notify Physician for NIHSS increase by > / = 3 points. Inpatient: RN or Physician to activate a stroke alert for NIHSS increase of > / = 3 points. NIHSS: Ischemic Stroke/TIA Start: 01/07/25 17:19 Text: For PCU Patients: NIH and Neuro Check every 4 Status: Complete hours, PRN and with change in RN caregiver. Freq: [id number] Protocol: Activity Type Activity Date Activity User E-sign Co-sign Detail Recorded Client Recorded Date Recorded By Document 01/08/25 07:57 CD [id number] 01/08/25 07:58 CD 01/08/25 07:57 -1a. Level of Consciousness 0 - Alert; keenly responsive -1b. LOC Questions 0 - Answers BOTH questions correctly -1c. LOC Commands 0 - Performs BOTH tasks correctly -2. Best Gaze 0 - Normal -3. Visual 0 - No visual loss -4. Facial Palsy 1 - Minor paralysis ( flattened nasolabial fold , asymmetry on smiling) -5a. Left Arm 0 - No drift; arm holds 90 ( or 45) degrees for full 10 seconds -5b. Right Arm 0 - No drift; arm holds 90 ( or 45) degrees for full 10 seconds -6a. Left Leg 0 - No drift; leg holds 30- degree position for full 5 seconds -6b. Right Leg 0 - No drift; leg holds 30- degree position for full 5 seconds -7. Limb Ataxia 0 - Absent -8. Sensory 0 - Normal; no sensory loss -9. Best Language 1 - Mild-to- moderate aphasia; -10. Dysarthria 0 - Normal -11. Extinction and Inattention 0 - No abnormality -Total 2 Query Text:A score of 0 is normal or asymptomatic. Total possible score is 42 . ED: Notify Physician for NIHSS increase by > / = 3 points. Inpatient: RN or Physician to activate a stroke alert for NIHSS increase of > / = 3 points. Coma Scale [Assess] -Eye Opening Spontaneous -Motor Obeys Commands -Verbal Oriented [Total] -Coma Scale Total 15
--- NOTE | 2025-01-08 11:44 | CASEMGMT ---
ALEX URIBE Assessment: Face to Face with pt for initial transition planning/care coordination assessment. RN JOJO introduced self and role at [facility], pt voices understanding and consents to assessment. Pt is A&O x4 and answers all questions appropriately at this time. Pt sitting up in chair in room in no distress. Care providers, pharmacy, and demographics verified/updated. Strata: Not available at this time. Admitting Dx: L Renal ESWL PCP: Ben Specialists: Mark, pain managment Preferred Pharmacy: [facility] Insurance: [facility] DUAL, KENA Prescription Benefit: yes LNOK: Daughter, Annelise Living Arrangements: Pt lives alone in an apartment with 3 steps to enter building. Pt lives on the third floor with no elevator in the building. ADLs:Pt reports I at baseline with ADLs and IADLs. Transportation: Pt drives self and denies concerns with transportation. DME: Grab bar, cane. HHC/SNF: Denies Hx of. Pt states no concerns with going home at time of dc. Pt states no further concerns/needs. CM to follow. Advised pt to ask CM if any further question/concerns/needs arise, voices understanding. Pt Goal: Home Plan: Home, follow for safe DC plan. Vicky JOHNSON CM
--- NOTE | 2025-01-08 11:44 | CASEMGMT ---
ALEX URIBE Assessment: Face to Face with pt for initial transition planning/care coordination assessment. RN JOJO introduced self and role at [facility], pt voices understanding and consents to assessment. Pt is A&O x4 and answers all questions appropriately at this time. Pt sitting up in chair in room in no distress. Care providers, pharmacy, and demographics verified/updated. Strata: Not available at this time. Admitting Dx: L Renal ESWL PCP: Ben Specialists: Mark, pain managment Preferred Pharmacy: [facility] Insurance: [facility] DUAL, KENA Prescription Benefit: yes LNOK: Daughter, Annelise Living Arrangements: Pt lives alone in an apartment with 3 steps to enter building. Pt lives on the third floor with no elevator in the building. ADLs:Pt reports I at baseline with ADLs and IADLs. Transportation: Pt drives self and denies concerns with transportation. DME: Grab bar, cane. HHC/SNF: Denies Hx of. Pt states no concerns with going home at time of dc. Pt states no further concerns/needs. CM to follow. Advised pt to ask CM if any further question/concerns/needs arise, voices understanding. Pt Goal: Home Plan: Home, follow for safe DC plan. Vicky JOHNSON CM
--- NOTE | 2025-01-08 13:33 | PCM.DC ---
Discharge Instructions DC O2, CPAP, BIPAP needs Home O2 Discharge instructions: No Dressing / Incision Discharge Activity: Return to Normal Activity Weight Bearing Status: Full weight bearing Dressing / Incision Call your doctor if you observe: Fever of 101 or Higher, Inability to urinate and Inability to have a bowel movement Follow Up Care Please Follow Up With: Slime Collier MD Test Results: Test results from this visit will be discussed in further detail at your follow-up appointment, if applicable. 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 Provider: Slime Collier Primary Care Provider: Chole Contreras Consulting Providers: Jere Barragan; Desirae Parry; Marla Bolden; Romelia Delaney; Yenni Bansal; Arvind Molina; Ely Weller; Ryan Gray; Murali Wilson; Jack Garza; Yudelka Daigle; Rodney Palacios; Wendie Combs; Radha Bird; Sandratrenton Villar; Eldon Tom; Scotty Acosta; Juan Rivera; Silvia Hurley; Jahaira Mcwililams; Slime Collier; Seamus Lemon Discharge Orders/Prescriptions Prescriptions: New oxycodone-acetaminophen 5-325 mg tablet 1 tab PO Q8H PRN (Reason: pain) 3 Days Qty: 10 0RF cephalexin 250 mg/5 mL suspension for reconstitution 500 mg PO BID 3 Days Qty: 60 0RF ondansetron 4 mg tablet,disintegrating 4 mg PO Q8H PRN (Reason: nausea and vomiting) Qty: 10 0RF phenazopyridine 200 mg tablet 200 mg PO TID PRN (Reason: pain) Qty: 30 3RF Continued albuterol sulfate 90 mcg/actuation HFA aerosol inhaler 2 puff inhalation Q4H PRN (Reason: shortness of breath or wheezing) budesonide-formoterol [Symbicort] 80-4.5 mcg/actuation HFA aerosol inhaler 2 puff inhalation BID buprenorphine 5 mcg/hour patch weekly 1 patch topical QWEEK Patient Comments: Upper left chest epinephrine 0.3 mg/0.3 mL auto-injector 0.3 ml IM X1 PRN (Reason: anaphylaxis) cholecalciferol (vitamin D3) 1,250 mcg (50,000 unit) capsule 1,250 mcg PO QWEEK pramipexole 0.125 mg tablet 0.125 mg PO QHS furosemide 20 mg tablet 20 mg PO DAILY doxycycline hyclate 100 mg tablet 100 mg PO BID Qty: 14 0RF Referrals / Follow Up: Slime Collier MD [Med Staff - Active Staff] - See Referral Note (As scheduled) Chloe Contreras NP-C [Primary Care Provider] - Disposition Disposition (needs filled in before D/C Order can be placed): Home, Self Care
--- NOTE | 2025-01-08 13:48 | PCM.DC.SUM ---
Providers Date of Admission: 01/07/25 Date of Discharge: 01/08/25 Primary Care Physician: NISHA Mendoza Consultations 01/07/25 17:19 Consult: Tele-Neurology Routine Consulting Provider: [facility] Reason for Consult: Acute Ischemic Stroke/TIA EMERGENT Consult: No Notified: Yes Date Notified: 01/07/25 Time Notified: 17:11 Method of Notification: Verbal Nursing Unit Staff Notify [facility] of Tele-Neurology Consult: Yes Consult: Urology Routine Consulting Provider: Slime Collier Reason for Consult: kidney stone EMERGENT Consult: No Notified: Yes Date Notified: 01/07/25 Time Notified: 17:14 Method of Notification: Verbal Reason For Visit: Left renal ESWL Diagnosis Discharge Diagnosis (1) Altered mental status: Status: Acute Code(s): R41.82 - Altered mental status, unspecified Plan 1. Toxic encephalopathy secondary to anesthesia effects #2 left renal calculus, status post lithotripsy #3 chronic depression #4 asthma Medications at Discharge Home Medications albuterol sulfate 90 mcg/actuation aerosol inhaler 2 puff inhalation Q4H PRN shortness of breath or wheezing 12/24/24 budesonide-formoterol HFA 80 mcg-4.5 mcg/actuation aerosol inhaler (Symbicort) 2 puff inhalation BID 12/24/24 buprenorphine 5 mcg/hour weekly transdermal patch 1 patch topical QWEEK 12/24/24 cholecalciferol (vitamin D3) 1,250 mcg (50,000 unit) capsule 1,250 mcg PO QWEEK 12/24/24 epinephrine 0.3 mg/0.3 mL injection, auto-injector 0.3 ml IM X1 PRN anaphylaxis 12/24/24 furosemide 20 mg tablet 20 mg PO DAILY 12/24/24 pramipexole 0.125 mg tablet 0.125 mg PO QHS 12/24/24 doxycycline hyclate 100 mg tablet 100 mg PO BID #14 tabs 01/04/25 cephalexin 250 mg/5 mL oral suspension 500 mg (10 mL) PO BID 3 days #60 mL 01/07/25 ondansetron 4 mg disintegrating tablet 4 mg PO Q8H PRN nausea and vomiting #10 tabs 01/07/25 oxycodone-acetaminophen 5 mg-325 mg tablet 1 tab PO Q8H PRN pain 3 days #10 tabs 01/07/25 phenazopyridine 200 mg tablet 200 mg PO TID PRN pain #30 tabs 01/07/25 Hospital Course Operations None Procedures 2-D Echocardiogram Summary of Care Provided Minutes Spent on Discharge: 31 Hospital Course: This 59-year-old white female was seen in PACU at [facility] due to unresponsiveness following a lithotripsy for a left renal stone. Patient was not able to carry on a conversation, she did respond to her name being called out. Stroke team was called, patient was taken to CT and had a CT of the brain as well as a CT of the head and neck, these imaging studies were unremarkable. Patient was then sent to the emergency room for evaluation, tenecteplase was not recommended. Labs obtained in the emergency room were unremarkable Patient was placed in observation status on PCU, NIH scores were monitored, patient was seen in consultation by teleneurology and underwent a brain MRI which was unremarkable. Teleneurology felt that the patient had lingering effects from anesthesia and these effects caused her lack of responsiveness. Echocardiogram was obtained and was unremarkable. Patient's mental status returned to baseline during her hospital stay. On 01/08/2025 patient was seen and examined: On examination she appeared in good health and spirits, she does not appear to be in any distress. Vital signs as documented. Skin warm and dry and without overt rashes. Neck without JVD, thyroid appears normal, trachea is midline, neck is supple. Lungs clear, normal air movement was noted. Heart exam notable for regular rhythm, normal sounds and absence of murmurs, rubs or gallops. Abdomen unremarkable and without evidence of organomegaly, masses, or abdominal aortic enlargement, bowel sounds are present in all 4 quadrants, no abdominal tenderness was noted. Extremities nonedematous, no cyanosis was noted, no clubbing was noted. Neuro: Cranial nerves II through XII are grossly intact, no focal motor deficits were noted, sensation to light touch and pinprick is intact, motor exam 5/5 throughout. Psych: Patient is alert and oriented x3, she does not appear anxious or depressed, she does not appear agitated. Patient was discharged home in stable condition on 01/08/2025. Weight / BMI Weight Weight: 81 kg Body Mass Index (BMI) 32.6 ABG / Lab / Microbiology Data 01/08/25 05:17 01/08/25 05:17 Laboratory: Laboratory Results - last 24 hr 01/07/25 10:37: Hemoglobin A1c 5.6 01/07/25 13:54: POC Glucose 110 H 01/08/25 05:17: WBC 10.2, RBC 4.35, Hgb 13.0, Hct 40.8, MCV 93.8, MCH 29.9, MCHC 31.9 L, RDW Std Deviation 45.7 H, RDW Coeff of Brittney 13.3, Plt Count 226, MPV 10.1, Immature Gran % (Auto) 0.200, Neut % (Auto) 67.8, Lymph % (Auto) 26.3, Meade % (Auto) 5.1, Eos % (Auto) 0.4, Baso % (Auto) 0.2, Absolute Neuts (auto) 6.9, Absolute Lymphs (auto) 2.69, Nucleated RBC % 0, Sodium 140, Potassium 4.2, Chloride 105, Carbon Dioxide 21.9, Anion Gap 14, BUN 13, Creatinine 0.57 L, Estim Creat Clear Calc 106.08, Est GFR (MDRD) Non-Af 105, BUN/Creatinine Ratio 23.1 H, Glucose 92, Calcium 8.8, Triglycerides 50, Cholesterol 150, LDL Cholesterol, Calc 68, VLDL Cholesterol 10, HDL Cholesterol 72, Cholesterol/HDL Ratio 2.08 Radiography Diagnostic Testing: Radiology Impression Brain CT 01/07/25 14:04 IMPRESSION: Mild degree of cerebellar atrophy. Findings suggestive of tiny old lacune in the right and left insular cortex of the left and right temporal lobes. Reading Location: [id number] Head/Neck CTA 01/07/25 14:53 IMPRESSION: Unremarkable examination. Reading Location: [facility] Brain MRI 01/07/25 17:15 IMPRESSION: No acute intracranial abnormality; no acute infarct. 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 Provider: Slime Collier Primary Care Provider: Chloe Contreras Consulting Providers: Jere Barragan; Desirae Parry; Marla Bolden; Romelia Delaney; Yenni Bansal; Arvind Molina; Ely Weller; Ryan Gray; Murali Wilson; Jack Garza; Yudelka Daigle; Rodney Palacios; Wendie Combs; Radha Bird; Sandratrenton Villar; Eldon Tom; Scotty Acosta; Juan Rivera; Silvia Hurley; Jahaira Mcwilliams; Slime Collier; Seamus eLmon Discharge Orders/Prescriptions Prescriptions: New oxycodone-acetaminophen 5-325 mg tablet 1 tab PO Q8H PRN (Reason: pain) 3 Days Qty: 10 0RF cephalexin 250 mg/5 mL suspension for reconstitution 500 mg PO BID 3 Days Qty: 60 0RF ondansetron 4 mg tablet,disintegrating 4 mg PO Q8H PRN (Reason: nausea and vomiting) Qty: 10 0RF phenazopyridine 200 mg tablet 200 mg PO TID PRN (Reason: pain) Qty: 30 3RF Continued albuterol sulfate 90 mcg/actuation HFA aerosol inhaler 2 puff inhalation Q4H PRN (Reason: shortness of breath or wheezing) budesonide-formoterol [Symbicort] 80-4.5 mcg/actuation HFA aerosol inhaler 2 puff inhalation BID buprenorphine 5 mcg/hour patch weekly 1 patch topical QWEEK Patient Comments: Upper left chest epinephrine 0.3 mg/0.3 mL auto-injector 0.3 ml IM X1 PRN (Reason: anaphylaxis) cholecalciferol (vitamin D3) 1,250 mcg (50,000 unit) capsule 1,250 mcg PO QWEEK pramipexole 0.125 mg tablet 0.125 mg PO QHS furosemide 20 mg tablet 20 mg PO DAILY doxycycline hyclate 100 mg tablet 100 mg PO BID Qty: 14 0RF Referrals / Follow Up: Slime Collier MD [Med Staff - Active Staff] - See Referral Note (As scheduled) Chloe Contreras NP-C [Primary Care Provider] - Disposition Disposition (needs filled in before D/C Order can be placed): Home, Self Care Charges/Coding Visit Charges Inpatient E&M: 03794 Disch Hosp >30min
--- NOTE | 2025-01-08 14:46 | NURSING ---
Pt and sister given discharge instructions including medications, follow up appointments and all other discharge instructions. pt and sister deny any further needs or questions at this time. telemetry removed and placed at nurses station. iv removed with catheter intact, clean dry dressing applied, pt tolerated well. pt walking out with sister. no further needs at this time.
--- NOTE | 2025-01-15 08:10 | PCM.HP.BLA ---
History and Physical Date of Admission: 01/07/25 Intake Vital Signs 01/01/2513:38 Height 5 ft 3 in Weight: 190 lb BMI 33.6 BP 140/81 H Pulse 70 Intake Visit Reasons: PRE OP URINE/SIGN CONSENT Chief Complaint: preoperative visit with urine culture and consent Conservation Enforcement Officer Required: No Accompanied by: Daughter Is patient in pain?: Yes (7/10 chronic back pain ) Pain scale (1-10): 7 Allergies bee venom protein (honey bee) Allergy (Verified 12/24/24 08:17) Anaphylaxisegg (eggs) Allergy (Verified 12/24/24 08:17) HivesFood Allergies: Uncoded Allergy (Verified 12/24/24 08:17) Hivespeach Allergy (Verified 01/01/25 13:35) hivesspider venom Allergy (Verified 01/01/25 13:35) Anaphylaxis Medications ?Medication ?Instructions ?Recorded ?Confirmed ?Type albuterol sulfate 90 mcg/actuation 2 puff inhalation Q4H PRN 12/24/24 12/24/24 History aerosol inhaler shortness of breath or wheezing budesonide-formoterol HFA 80 2 puff inhalation BID 12/24/24 12/24/24 History mcg-4.5 mcg/actuation aerosol inhaler (Symbicort) buprenorphine 5 mcg/hour weekly 1 patch topical QWEEK 12/24/24 12/24/24 History transdermal patch cholecalciferol (vitamin D3) 1,250 1,250 mcg PO QWEEK 12/24/24 12/24/24 History mcg (50,000 unit) capsule epinephrine 0.3 mg/0.3 mL 0.3 ml IM X1 PRN anaphylaxis 12/24/24 12/24/24 History injection, auto-injector furosemide 20 mg tablet 20 mg PO DAILY 12/24/24 12/24/24 History pramipexole 0.125 mg tablet 0.125 mg PO QHS 12/24/24 12/24/24 History Have you fallen in the past year?: No PFSH Medical History Miscarriage UTI (urinary tract infection) Bowel disease Toe fracture Migraines Gestational diabetes Anemia Shoulder blade pain Vitamin D deficiency Stress incontinence Uterine cancer OCD (obsessive compulsive disorder) Wears partial dentures Cancer Schizophrenia Bipolar disorder Depression Anxiety Kidney stones Back pain Restless legs Arthritis Alcohol use History of ulceration Shortness of breath on exertion Former smoker Asthma Leg cramps Surgical History History of throat surgery S/P gastric sleeve procedure Hx laparoscopic cholecystectomy H/O removal of cyst H/O rotator cuff surgery H/O gastric sleeve H/O bilateral breast reduction surgery Tubal ligation status H/O: hysterectomy History of back surgery History of cardiac catheterization Family History Sister Skin cancer Blood clot associated with vein wall inflammation Miscarriage DiabetesMother Miscarriage OsteoporosisFather DiabetesGrandmother Osteoporosis Social History Smoking Status: Former smoker alcohol intake: never substance use type: does not use what type of physical activity do you participate in: none do you feel safe at home: Yes HPI HPI Urology Chief Complaint: preoperative visit with urine culture and consent Details: CORINA CORDERO, is a 59 F. The patient is here for preoperative history and physical prior to left renal extracorporal shockwave lithotripsy. There are no new symptoms since the last visit. She is still struggling with her chronic back pain, and we did once again discussed that this left-sided back pain may not go away with management of her left renal stone. The procedure, recovery and expectations were explained. The risks, benefits and alternatives were discussed, including but not limited to, the risks of anesthesia, bleeding, infection, injury, pain and the need for further intervention. We have discussed the risk of exposure to and/or potential harm posed by the COVID-19 virus with having a surgery/procedure at this time. A joint decision was made at this time to proceed with the scheduled surgery/procedure as indicated on the consent form. ROS Const Constitutional: No chills, fatigue, fever(s), headache(s), night sweats, weakness, weight change, abnormal sleep pattern or change in appetite Eyes Eyes: No change in vision ENT ENT: No headache(s) or dry mouth Resp Respiratory: No cough, chest congestion, shortness of breath or wheezing Cardio Cardiology: Positive for other (No chest pain.); No shortness of breath, irregular heart rhythm or lightheadedness Gastro GI: Positive for other (No nausea.); No abdominal pain, change in bowel habits, constipation, diarrhea or vomiting Genitourinary-Female: Positive for other (Chronic back pain) Musc Musculoskeletal: No abnormal gait Skin Skin: No yellowing of the eye, lesions, itchy eyes, rash or skin ulcer Neuro Neurology: No abnormal gait, confusion, dizziness, weakness, headache(s) or memory loss Psych Psychiatric: No abnormal sleep pattern, No change in appetite, No confusion and No memory loss Endo Endocrine: No fatigue, increased thirst/drinking or weight change Aller/Imm Allergy/Immunologic: No itchy eyes or wheezing Keon/Lymp Hematologic/Lymphatic: No easy bleeding, easy bruising or enlarged lymph nodes Exam Const General: cooperative, healthy appearing, comfortable and no acute distress HENMT Head: normocephalic and atraumatic Ears: hearing grossly normal bilaterally and external ears normal Nose: external nose normal Eyes General: appearance normal, both eyes and all related structures Neck Neck: normal visual inspection and trachea midline Chest Chest palpation & inspection: normal inspection of the chest Resp Effort & Inspection: normal respiratory effort, able to speak in complete sentences and symmetric chest movement Cardio Rate: regular rate GI Inspection: normal to inspection Palpation: soft and nontender General: No CVA tenderness Skin General: no rashes or lesions noted Neuro General: patient alert, patient awake, patient oriented x3 and CN's II-XI intact bilaterally Extrem General: normal to inspection Psych Appearance: grossly normal and well kempt Mental Status: mental status grossly normal Results POC UA Auto w/o Microscopy Office Urine Color ? Last Edit by Margot Hussein on 01/01/25 13:43 Office Urine Clarity ? Last Edit by Margot Hussein on 01/01/25 13:43 Office Urine Glucose Negative Last Edit by Margot Hussein on 01/01/25 13:43 Office Urine Ketones Negative Last Edit by Margot Hussein on 01/01/25 13:43 Office Urine Bilirubin Negative Last Edit by Margot Hussein on 01/01/25 13:43 Office Urine Urobilinogen Negative Last Edit by Margot Hussein on 01/01/25 13:43 Off Ur Spec Salter Path 1.010 Last Edit by Margot Hussein on 01/01/25 13:43 Office Urine pH 7 Last Edit by Margot Hussein on 01/01/25 13:43 Office Urine Protein Negative Last Edit by Margot Hussein on 01/01/25 13:43 Office Urine Blood Negative Last Edit by Margot Hussein on 01/01/25 13:43 Office Urine Blood Hemolyzed ? Last Edit by Margot Hussein on 01/01/25 13:43 Office Urine Nitrate Negative Last Edit by Margot Hussein on 01/01/25 13:43 Off Ur Leukocytes Negatve Last Edit by Margot Hussein on 01/01/25 13:43 Off Ur WBC Microscopic ? Last Edit by Margot Hussein on 01/01/25 13:43 Off Ur RBC Microscopic ? Last Edit by Margot Hussein on 01/01/25 13:43 Off Ur Bacteria Microscopic ? Last Edit by Margot Hussein on 01/01/25 13:43 Coding Level of Care Code Off vis,est,level 4 Diagnoses Kidney stones N20.0 Overactive bladder N32.81 Mixed incontinence N39.46 Nocturia R35.1 Constipation K59.00 Hypertension I10 Assessment and Plan Assessment and Plan (1) Kidney stones: Status: Acute Plan: Urine culture today Continue with plans for left renal extracorporal shockwave lithotripsy as scheduled next week Follow-up will be 2 to 3 weeks after the procedure with a KUB done prior to the office appointment (2) Overactive bladder: Status: Acute Plan: This will be evaluated and managed after her kidney stone has been treated (3) Mixed incontinence: Status: Acute Plan: This will be evaluated and managed after her kidney stone has been treated (4) Nocturia: Status: Acute Plan: This will be evaluated and managed after her kidney stone has been treated (5) Constipation: Status: Acute (6) Hypertension: Status: Chronic Orders: Orders POC UA Auto w/o Microscopy Today N20.0 - Calculus of kidney
== END 2025-01-08 14:45 | disposition home or self-care (01) | DRG 693 ==
LOC: PCU 17:25
PROVIDERS: PCP Nurse Practitioner Family; Referring Provider Urology; Visit Provider Urology
PROC: 0TF4XZZ Fragmentation in Left Kidney Pelvis, External Approach (ICD-10-PCS; CPT 50590; principal; 2025-01-07 10:30)
DX: N20.0 Calculus of kidney (principal); G92.8 Other toxic encephalopathy; J45.909 Unspecified asthma, uncomplicated; I10 Essential (primary) hypertension; G25.81 Restless legs syndrome; F32.A Depression, unspecified; E55.9 Vitamin D deficiency, unspecified; M54.9 Dorsalgia, unspecified; K59.00 Constipation, unspecified; N32.81 Overactive bladder; N39.46 Mixed incontinence; T41.205A Adverse effect of unspecified general anesthetics, initial encounter; G89.29 Other chronic pain; Z87.442 Personal history of urinary calculi; Z98.84 Bariatric surgery status; Z90.49 Acquired absence of other specified parts of digestive tract; Z79.51 Long term (current) use of inhaled steroids; Z87.891 Personal history of nicotine dependence
CPT/HCPCS: 36415; 70450; 70496; 70498; 70551; 80048; 80061; 82962; 83036; 85025; 85027; 92523; 93306; 94640; 97161; 97166; 97802; Q9967; A4216; J2405

== ENCOUNTER → 2025-02-03 | Outpatient (CLI) | payer MEDICARE, MEDICAID, SELFPAY ==
--- NOTE | 2025-02-03 13:22 | RAD_ITS ---
PROCEDURE: ABDOMEN SINGLE VIEW 02/03/2025 REASON FOR EXAM: KUB- STONES TECHNIQUE: Procedure Code: RADABD Modality: DX Procedure: ABDOMEN SINGLE VIEW COMPARISON: KUB, 10/21/2024. FINDINGS: There is a nonobstructive bowel gas pattern. There is a stable 5 mm calcification projected over the upper pole of the left renal outline. Status post cholecystectomy. There is a calcified granuloma in the base of the right lung. No significant bony abnormalities. RAD/Abdomen Single View IMPRESSION: Stable left renal stone. Reading Location: [id number]
== END | disposition home or self-care (01) ==
LOC: MTLAB 13:20 → MTRAD 13:22
PROVIDERS: PCP Nurse Practitioner Family; Referring Provider Urology; Visit Provider Urology
DX: N20.0 Calculus of kidney (principal)
CPT/HCPCS: 74018

== ENCOUNTER → 2025-02-17 | Outpatient (CLI) | payer MEDICARE, MEDICAID, SELFPAY ==
--- NOTE | 2025-02-17 18:41 | CT_ITS ---
PROCEDURE: CT ABDOMEN/PELVIS WITHOUT CONTRAST 02/17/2025 REASON FOR EXAM: KIDNEY STONE TECHNIQUE: Procedure Code: CTABDPEL Modality: CT Procedure: ABDOMEN/PELVIS WITHOUT CONT Noncontrast technique limits evaluation of the abdominal and pelvic viscera. Coronal and Sagittal reconstruction series were provided. One or more dose reduction techniques were used (e.g., Automated exposure control, adjustment of the mA and/or kV according to patient size, use of iterative reconstruction technique). RADIATION DOSE SUMMARY: CTDlvol: 8.08 mGy DLP: 413.59 mGycm COMPARISON: None. FINDINGS: Lung bases: Clear. Scattered calcified granulomas. Liver: No significant abnormality. Punctate calcified granulomas. Gallbladder: Surgically absent. Spleen: Normal in size. Multiple calcified granulomas. Pancreas: Unremarkable. Adrenals: Unremarkable. Kidneys: 6 mm nonobstructive stone in the upper pole of the left kidney. Additional punctate nonobstructive right renal stone. No hydronephrosis. Bladder: Unremarkable. No bladder calculus. Reproductive Organs: Prior hysterectomy. Unremarkable adnexae. Bowel: Prior sleeve gastrectomy. No evidence of obstruction or active inflammatory process. Normal appendix. Moderate distal colonic diverticulosis without evidence for active diverticulitis/colitis. Lymph nodes: No enlarged abdominopelvic lymph nodes. Vasculature: Normal caliber abdominal aorta and IVC. Peritoneum / Retroperitoneum: No ascites or free air. Musculoskeletal: Small fat containing right inguinal hernia. No significant osseous abnormality. CT/Abdomen/Pelvis without Cont IMPRESSION: 1. Nonobstructive renal stones, the largest measuring 6 mm in the left upper po le. No ureteral stones or hydroureteronephrosis on either side. 2. Colonic diverticulosis without evidence for active diverticulitis. 3. Small fat containing right inguinal hernia. Reading Location: [facility]
== END | disposition home or self-care (01) ==
LOC: CT 18:35
PROVIDERS: PCP Nurse Practitioner Family; Referring Provider Urology; Visit Provider Urology
DX: N20.0 Calculus of kidney (principal)
CPT/HCPCS: 74176